=== PATIENT | male | born 1940 | race Caucasian/White ===

== ENCOUNTER → 2017-12-15 11:15 | Outpatient (CLI) | payer MEDICARE, SELFPAY ==
[2017-12-15 12:17] LABS: Absolute Lymphocyte Count 1.68 X10^3/ul (0.83-4.51); Absolute Neutrophil Count 2.8 X10^3/uL (2.0-7.7); Basophil# 0.02 X10^3/uL; Basophil% 0.4 % (0-1); Eosinophil# 0.16 X10^3/uL; Hematocrit 44.2 % (40-54); Hemoglobin 14.6 g/dl (13.0-16.5); Lymphocyte # 1.68 X10^3/ul (4.0); Lymphocyte % 31.4 % (19-41); Mean Corpuscular Hgb 31.9 pg (27.0-32.0); Mean Corpuscular Volume 96.7 fL (80-94); Mean Platelet Vol. 10.2 fl (6.2-12.0); Monocyte# 0.69 X10^3/uL; Monocyte% 12.9 % (0-10); Neutrophil # 2.79 X10^3/uL (2.7-7.7); Neutrophil % 52.1 % (47-70); Platelet Count 156 K/mm3 (150-450); RBC Distribution Width CV 13.3 % (11.6-14.6); RBC Distribution Width SD 46.1 fl (35.1-43.9); Red Blood Count 4.57 M/mm3 (4.6-6.2); White Blood Count 5.4 K/mm3 (4.4-11.0)
[2017-12-15 12:27] LABS: ALB/GLOB Ratio 1.1 RATIO (0.9-2.4); AST(SGOT) 17 U/L (15-37); Alanine Aminotransfer ALT/SGPT 25 U/L (16-61); Albumin, Serum 3.7 g/dL (3.2-5.0); Alkaline Phosphatase 91 U/L (45-117); Anion Gap 6 (5-15); BUN 21 mg/dL (7-18); BUN/Creat Ratio 24.9 RATIO (10-20); Calcium,Total 8.4 mg/dL (8.5-10.1); Chloride 108 mmol/L (98-107); Cholesterol 87 mg/dL (200); Creatinine, Serum 0.84 mg/dL (0.70-1.30); EST Glomerular Filtration Rate 93 mL/min (>60); Est Glom Filt Rate - Afr Amer 113 mL/min (>60); Globulin 3.5 g/dL (2.2-4.2); Glucose 101 mg/dL (74-106); High Density Lipoprotein 29 mg/dL; Protein, Total 7.2 g/dL (6.4-8.2); Sodium Level 139 mmol/L (136-145); Thyroid Stim Hormone (TSH) 2.42 uIU/mL (0.358-3.74); Triglycerides 61 mg/dL; Very Low Density Lipoprotein 12 mg/dL (5-40)
[2017-12-15 12:28] LABS: POSITIVE COUNT NO; POSITIVE DIFFERENTIAL NO; POSITIVE MORPHOLOGY NO
[2017-12-15 12:29] LABS: Vitamin D,25 Hydroxy 16.2 ng/mL (29.95-100.01)
== END ==
PROVIDERS: Visit Provider Family Medicine Geriatric Medicine
DX: E78.4 Other hyperlipidemia (principal); E55.9 Vitamin D deficiency, unspecified; I10 Essential (primary) hypertension
CPT/HCPCS: 36415; 80053; 80061; 82306; 84443; 85025

== ENCOUNTER → 2018-03-11 17:28 | Outpatient (CLI) | payer MEDICARE, SELFPAY | PROVIDERS: Family Provider Family Medicine; PCP Family Medicine; Visit Provider Family Medicine Geriatric Medicine | DX: R50.9 Fever, unspecified (principal) | CPT/HCPCS: 87633 ==

== ENCOUNTER → 2019-03-09 12:27 | Outpatient (CLI) | payer MEDICARE, SELFPAY ==
[2015-11-29 19:35] VITALS: BMI 25.9
[2019-03-09 12:49] LABS: Absolute Lymphocyte Count 1.75 X10^3/uL (0.83-4.51); Absolute Neutrophil Count 3.6 X10^3/uL (2.0-7.7); Basophil# 0.03 X10^3/uL; Basophil% 0.5 % (0-1); Eosinophil# 0.19 X10^3/uL; Hematocrit 44.7 % (40-54); Hemoglobin 14.4 g/dL (13.0-16.5); Lymphocyte # 1.75 X10^3/ul (4.0); Lymphocyte % 27.6 % (19-41); Mean Corp Hgb Conc 32.2 g/dL (32-36); Mean Corpuscular Hgb 30.9 pg (27.0-32.0); Mean Corpuscular Volume 95.9 fL (80-94); Mean Platelet Vol. 9.6 fl (6.2-12.0); Monocyte# 0.74 X10^3/uL; Monocyte% 11.7 % (0-10); NRBC Flagged by Analyzer 0 % (0-5); Neutrophil # 3.62 X10^3/uL (2.7-7.7); Neutrophil % 56.9 % (47-70); Platelet Count 158 K/mm3 (150-450); RBC Distribution Width CV 12.7 % (11.6-14.6); Red Blood Count 4.66 M/mm3 (4.6-6.2); White Blood Count 6.4 K/mm3 (4.4-11.0)
[2019-03-09 13:20] LABS: Anion Gap 7 (5-15); BUN 19 mg/dL (7-18); BUN/Creat Ratio 21.9 RATIO (10-20); Calcium,Total 8.6 mg/dL (8.5-10.1); Chloride 106 mmol/L (98-107); Creatinine, Serum 0.87 mg/dL (0.70-1.30); EST Glomerular Filtration Rate 90 mL/min (>60); Est Glom Filt Rate - Afr Amer 109 mL/min (>60); Glucose 101 mg/dL (74-106); Potassium 4.5 mmol/L (3.5-5.1); Sodium Level 141 mmol/L (136-145)
--- NOTE | 2019-03-09 14:38 | RAD_ITS ---
STUDY: X-RAY CHEST REASON FOR EXAM: Male, 78 years old. Cough TECHNIQUE: Frontal and lateral views of the chest COMPARISON: None. FINDINGS: There are increased interstitial markings noted throughout the lungs which are of uncertain chronicity. Comparison with any prior chest radiographs is recommended. There are no focal infiltrates. There are no pleural effusions. There is no pneumothorax. The heart is normal in size. The visualized osseous structures are within normal limits. RAD/Chest PA and Lateral IMPRESSION: Increased interstitial markings which are of uncertain chronicity. Comparison with any prior chest radiographs is recommended. Otherwise, clear lungs. Electronically Signed: Neal Arias, at 15:21 EDT Tel , Service support ,
== END ==
LOC: POLAB3 12:28 → RAD 14:37
PROVIDERS: Family Provider Family Medicine; PCP Family Medicine; Referring Provider Family Medicine Geriatric Medicine; Visit Provider Family Medicine Geriatric Medicine
DX: E86.0 Dehydration (principal); R06.02 Shortness of breath; R05 Cough
CPT/HCPCS: 36415; 71046; 80048; 85025

== ENCOUNTER → 2019-06-08 | Outpatient (CLI) | payer MEDICARE, SELFPAY ==
[2015-11-29 19:35] VITALS: BMI 25.9
[2019-06-08 15:56] LABS: Absolute Lymphocyte Count 1.86 X10^3/uL (0.83-4.51); Absolute Neutrophil Count 3.3 X10^3/uL (2.0-7.7); Basophil# 0.06 X10^3/uL; Eosinophil# 0.18 X10^3/uL; Eosinophils% 2.9 % (0-5); Hematocrit 43.1 % (40-54); Hemoglobin 14.1 g/dL (13.0-16.5); Lymphocyte # 1.86 X10^3/ul (4.0); Lymphocyte % 30.4 % (19-41); Mean Corp Hgb Conc 32.7 g/dL (32-36); Mean Corpuscular Hgb 32.3 pg (27.0-32.0); Mean Corpuscular Volume 98.6 fL (80-94); Mean Platelet Vol. 10.1 fl (6.2-12.0); Monocyte# 0.68 X10^3/uL; Monocyte% 11.1 % (0-10); NRBC Flagged by Analyzer 0 % (0-5); Neutrophil # 3.31 X10^3/uL (2.7-7.7); Neutrophil % 54.1 % (47-70); Platelet Count 165 K/mm3 (150-450); RBC Distribution Width CV 13.1 % (11.6-14.6); RBC Distribution Width SD 46.9 fl (35.1-43.9); Red Blood Count 4.37 M/mm3 (4.6-6.2); White Blood Count 6.1 K/mm3 (4.4-11.0)
[2019-06-08 16:14] LABS: Vitamin D,25 Hydroxy 23.5 ng/mL (29.95-100.01)
[2019-06-08 16:16] LABS: ALB/GLOB Ratio 1.1 RATIO (0.9-2.4); AST(SGOT) 20 U/L (15-37); Alanine Aminotransfer ALT/SGPT 27 U/L (16-61); Albumin, Serum 3.7 g/dL (3.2-5.0); Alkaline Phosphatase 82 U/L (45-117); Anion Gap 6 (5-15); BUN 22 mg/dL (7-18); BUN/Creat Ratio 24.3 RATIO (10-20); Calcium,Total 8.5 mg/dL (8.5-10.1); Chloride 107 mmol/L (98-107); Cholesterol 123 mg/dL (200); EST Glomerular Filtration Rate 86 mL/min (>60); Est Glom Filt Rate - Afr Amer 104 mL/min (>60); Globulin 3.3 g/dL (2.2-4.2); Glucose 111 mg/dL (74-106); High Density Lipoprotein 39 mg/dL; Potassium 4.3 mmol/L (3.5-5.1); Sodium Level 139 mmol/L (136-145); Thyroid Stim Hormone (TSH) 1.87 uIU/mL (0.358-3.74); Triglycerides 75 mg/dL; Very Low Density Lipoprotein 15 mg/dL (5-40)
== END | disposition home or self-care (01) ==
LOC: POLAB3 13:53
PROVIDERS: Visit Provider Family Medicine Geriatric Medicine
DX: E55.9 Vitamin D deficiency, unspecified (principal); E78.5 Hyperlipidemia, unspecified; I10 Essential (primary) hypertension
CPT/HCPCS: 36415; 80053; 80061; 82306; 84443; 85025

== ENCOUNTER → 2020-06-12 13:08 | Outpatient (CLI) | payer MEDICARE, SELFPAY ==
[2020-06-12 16:31] LABS: Absolute Lymphocyte Count 1.67 X10^3/uL (0.83-4.51); Absolute Neutrophil Count 3.5 X10^3/uL (2.0-7.7); Basophil# 0.04 X10^3/uL; Basophil% 0.7 % (0-1); Eosinophil# 0.15 X10^3/uL; Eosinophils% 2.5 % (0-5); Hematocrit 44.6 % (40-54); Hemoglobin 14.3 g/dL (13.0-16.5); Lymphocyte # 1.67 X10^3/ul (4.0); Mean Corp Hgb Conc 32.1 g/dL (32-36); Mean Corpuscular Hgb 31.3 pg (27.0-32.0); Mean Corpuscular Volume 97.6 fL (80-94); Monocyte# 0.55 X10^3/uL; Monocyte% 9.2 % (0-10); NRBC Flagged by Analyzer 0 % (0-5); Neutrophil # 3.53 X10^3/uL (2.7-7.7); Neutrophil % 59.3 % (47-70); Platelet Count 175 K/mm3 (150-450); RBC Distribution Width CV 13.2 % (11.6-14.6); RBC Distribution Width SD 47.1 fl (35.1-43.9); Red Blood Count 4.57 M/mm3 (4.6-6.2)
[2020-06-12 16:45] LABS: Vitamin D,25 Hydroxy 20.5 ng/mL
[2020-06-12 16:53] LABS: AST(SGOT) 18 U/L (15-37); Alanine Aminotransfer ALT/SGPT 25 U/L (16-61); Albumin, Serum 3.6 g/dL (3.2-5.0); Alkaline Phosphatase 83 U/L (45-117); Anion Gap 8 (5-15); BUN 23 mg/dL (7-18); BUN/Creat Ratio 23.5 RATIO (10-20); Calcium,Total 8.5 mg/dL (8.5-10.1); Chloride 104 mmol/L (98-107); Cholesterol 162 mg/dL (200); Creatinine, Serum 0.98 mg/dL (0.70-1.30); EST Glomerular Filtration Rate 78 mL/min (>60); Est Glom Filt Rate - Afr Amer 94 mL/min (>60); Globulin 3.5 g/dL (2.2-4.2); Glucose 135 mg/dL (74-106); High Density Lipoprotein 40 mg/dL; Potassium 4.4 mmol/L (3.5-5.1); Protein, Total 7.1 g/dL (6.4-8.2); Sodium Level 138 mmol/L (136-145); Thyroid Stim Hormone (TSH) 1.85 uIU/mL (0.358-3.74); Triglycerides 217 mg/dL; Very Low Density Lipoprotein 43 mg/dL (5-40)
== END ==
PROVIDERS: Visit Provider Family Medicine Geriatric Medicine
DX: E55.9 Vitamin D deficiency, unspecified (principal); E78.5 Hyperlipidemia, unspecified; I10 Essential (primary) hypertension
CPT/HCPCS: 36415; 80053; 80061; 82306; 84443; 85025

== ENCOUNTER 2020-10-26 08:52 | Outpatient (RCR) | payer MEDICARE, SELFPAY ==
[2015-11-29 19:35] VITALS: BMI 25.9
[2020-10-26] MEDS: COVID-19 VACC, MRNA(PFIZER)/PF 30 MCG/0.3 ML SYRINGE IM (13:43)
[2020-11-16] MEDS: COVID-19 VACC, MRNA(PFIZER)/PF 30 MCG/0.3 ML SYRINGE IM (13:12)
== END 2021-01-30 23:59 ==
LOC: IMMUN 08:52
PROVIDERS: Visit Provider Family Medicine
DX: Z23 Encounter for immunization (principal)
CPT/HCPCS: 0001A; 0002A; 91300

== ENCOUNTER → 2021-01-15 12:54 | Outpatient (CLI) | payer MEDICARE, SELFPAY ==
[2015-11-29 19:35] VITALS: BMI 25.9
--- NOTE | 2021-01-15 16:59 | SP.MBSS_ITS ---
Modified Barium Swallow - Patient Information Study Date: 01/15/21 Study Time: 13:00 Direct Billable Minutes: 135 Total Minutes procedure & reportin Diagnosis: Dysphagia Referring Physician: Laurent York Chi Reason for Referral: Referral received for objective assessment of swallow function secondary to patient reporting food will lay in my throat & I'll cough it back up, hard to get food to go down, feels like swallowing a big lump Medical History: obtained per review of electronic medical record and medication list - HLD, HTN, Depression, Tobacco Abuse Dentition: Upper Dentures, Lower Dentures Mental Status: WNL Respiratory Status: Oxygenating on Room Air - Penetration-Aspiration Scale Penetration-Aspiration Scale: OBJECTIVE ASSESSMENT OF SWALLOW FUNCTION (QUANTITATIVE ? PER TRIAL): PENETRATION / ASPIRATION SCALE (BOWER): 1 = does not enter airway 2 = enters airway/above vocal folds/ejected 3 = enters airway/above vocal folds/not ejected 4 = enters airway/contacts vocal folds/ejected 5 = enters airway/contacts vocal folds/not ejected 6 = enters airway/below vocal folds/ejected 7 = enters airway/below vocal folds/not ejected despite effort 8 = enters airway/below vocal folds/no effort VIDEOFLOROSCOPIC SCALE SCORE (BOWER): Grade I = aspiration of material that has penetrated into the laryngeal vestibule, intact cough reflex Grade II = aspiration < 10 % of the bolus, intact cough reflex Grade III = aspiration of < 10 % of the bolus, reduced cough reflex or aspiration of > 10 % of the bolus, intact cough reflex Grade IV = aspiration of > 10 % of the bolus, reduced cough reflex - Penetration-Aspiration Scale Score Thin Liquid via teaspoon Result: 3= enters airways/above vocal folds/not ejected - transiently dropped below folds, contrast remained atop folds post deglutition, partially ejected w/ cued cough and re-swallow Thin Liquid via teaspoon Trial 2 Result: 6= enters airway/below vocal folds/ejected - transiently dropped below folds, contrast remained atop folds post deglutition, partially ejected w/ cued cough and re-swallow Thin Liquid via small single sip from cup Result: 5= enters airways/contacts vocal folds/not ejected Thin Liquid via small single sip from cup Chin tuck Result: 8= enters airway/below vocal folds/no effort Comment: chin tuck worsened airway protection and increased aspiration before/during the swallow; aspiration was silent Thin Liquid via small single sip from cup Supraglottic swallow Result: 3= enters airways/above vocal folds/not ejected Hartsel Thick Liquid via small single sip from cup Result: 3= enters airways/above vocal folds/not ejected Pudding Result: 2= enter airway/above vocal folds/ejected Thin Liquid via small single sip from cup Trial 2 Result: 2= enter airway/above vocal folds/ejected Thin Liquid via sequential sips from cup Result: 5= enters airways/contacts vocal folds/not ejected - Oral Phase Labial Seal: No Labial Escape Tongue Control During Bolus Hold: Posterior escape of less than half of bolus Bolus Preparation/Mastication: Slow prolonged chewing/mashing with complete recollection Bolus Transport/Lingual Motion: Repetitive/disorganized tongue motion Oral Residue: Residue collection on oral structures - Pharyngeal Phase Initiation of Pharyngeal Swallow: Bolus head in valleculae Soft Palate Elevation: Trace column of contrast/air between soft palate and pharyngeal wall Laryngeal Elevation: Partial superior movement thyroid cart/partial apprx aryt- epig petiole Epiglottic Movement: Partial inversion Laryngeal Vestibule Closure at Height of Swallow: Incomplete; narrow column of air/contrast in laryngeal vestibule Pharyngeal Stripping Wave: Absent Pharyngoesophageal Segment Opening: Parital distension and partial duration; parital obstruction of flow Tongue Base Retraction: Narrow column of contrast between tongue base & post. pharyngeal wall Pharyngeal Residue: Collection of residue within or on pharyngeal structures - Esophageal Phase Esophageal Clearance: Esophageal retention w/ retrograde flow below pharyn goesophageal seg. - Treatment Strategies Effects of treatment strategies attemped:: Supraglottic Swallow = effective Super-Supraglottic Swallow = effective Chin Tuck = not effective Double Swallow = effective - Diagnosis/Impression Diagnosis: Moderate Oropharyngeal Dysphagia (R13.12) Impression: Swallow function is characterized by: * Disorganized oral containment with spillage to the floor of the mouth/lateral sulci and premature pharyngeal bolus entry prior to swallow onset * Spillage w/ trial of thin liquid via teaspoon x1 entered into the laryngeal vestibule, contacting the vocal folds before swallow onset; penetration transiently dropped below the vocal folds during deglutition w/ return atop the vocal folds upon swallow completion; no cough response appreciated in response to transient aspiration * Adequate base of tongue retractions, essentially absent pharyngeal stripping wave w/ diminished pharyngeal contraction * Trace contrast between the velum and posterior pharyngeal wall without penetration into the nasopharynx; contrast adhered to velum post deglutition * Thyroid cartilage elevation of ~1 cervical vertebrae * Limited superior and anterior hyoid excursion resulting in incomplete epiglottic inversion, incomplete arytenoid to epiglottic petiole and reduced distension and duration of PES opening, complicated by small cervical osteophytes noted at C5-6 level * Due to reduced PES distention, incomplete arytenoid to epiglottic petiole contact and incomplete epiglottic inversion, contrast penetrated into the laryngeal vestibule contacting the vocal folds during the swallow w/ liquid and pudding trials * Diffuse pharyngeal residue retention noted on all pharyngeal structures ? velum, base of tongue, posterior pharyngeal wall, valleculae, aryepiglottic folds, pyriform sinuses * Copious pyriform sinus residue retention contributed to additional laryngeal vestibule penetration when utilizing additional swallows to clear residue * Supraglottic swallow maneuver was effective compensate for impaired swallow onset timing and provide sufficient vocal fold closure and airway protection; successfully eliminating penetration w/ pudding consistency * Cough and re-swallow effective to partially expel penetration from the laryngeal vestibule * Esophageal retention below the PES evident during esophageal screen for clearance; trace contrast lining the esophagus below the PES w/ visible retrograde flow below the PES * This patient demonstrated consistent moist throat clearing following MBS completion * Although penetration occurred consistently throughout this study, it was not markedly changed as textures/consistencies were modified w/ limited aspiration * Given this patient?s active lifestyle, it is suspected that he has been compensating for/tolerating chronic penetration/microaspiration without pulmonary compromise - Recommendations Diet: Regular Textures - Minced & Moist Texture, avoiding dry/hard/crunchy food items, Thin Liquids Comment: Recommended Compensatory Strategies * seated upright w/ hip flexion at 90 degrees for all PO intake * remain upright for 30-60 minutes after meals (GERD precautions) * Super-Supraglottic Swallow Maneuver - INSTRUCTIONS: take a breath and hold it tightly while bearing down, continue to hold your breath and bear down as you swallow, immediately after your swallow (before you inhale) cough then immediately swallow hard again (before you inhale) * Clear throat/re-swallow as needed (i.e. if wet vocal quality or pharyngeal residue retention) Recommend Repeat Modified Barium Swallow: Yes - repeat MBS recommended following outpatient dysphagia intervention at gauge progress and need for compensatory strategy modification/discontinuation - timing of repeat MBS TBD the the discretions of the treating outpatient BUSINESS PROGRAMMER Comment: Outpatient Barium Esophagram is scheduled for 01/16/21. Need for Skilled Speech Therapy Services: Yes Comment: Outpatient dysphagia intervention is recommended to address: * continued instruction w/ diet texture management * training and implementation of recommended compensatory strategies (Super- Supraglottic Swallow) * training and implementation of recommended oropharyngeal strengthening exercises to facilitate improved lingual control, swallow onset timing, laryngeal vestibule closure, epiglottic inversion, pharyngeal motility, and PES distention/duration * additional education regarding MBS findings * determine appropriate interval for repeated instrumental assessment of oropharyngeal swallow function Education Completed: 1. Described result of evaluation., 2. Pt understands evaluation & agrees with goals and treatment plan. Comment: Education was provided regarding results/recommendations immediately follow MBS completion. Images were reviewed with the patient to improve comprehension of normal swallow function and of deficits identified which require implementation of compensatory strategy use and outpatient dysphagia intervention. Education well received with the patient successfully teaching back to this BUSINESS PROGRAMMER the recommended compensatory strategies for improved swallow function/reduced aspiration risk. - Status Active ST Patient: Active - Contact Information [facility] Speech Therapy:: Rosibel Stanton M.A., [facility]-BUSINESS PROGRAMMER [facility] [address] [place], [place] [id number] [email or web address]
== END ==
PROVIDERS: PCP Family Medicine Geriatric Medicine; Referring Provider Family Medicine Geriatric Medicine; Visit Provider Family Medicine Geriatric Medicine
DX: R13.10 Dysphagia, unspecified (principal)
CPT/HCPCS: 74230; 92611

== ENCOUNTER → 2021-01-16 08:19 | Outpatient (CLI) | payer MEDICARE, SELFPAY ==
[2015-11-29 19:35] VITALS: BMI 25.9
--- NOTE | 2021-01-16 08:21 | RAD_ITS ---
STUDY: X-RAY - ESOPHAGUS (BARIUM SWALLOW) WITH FLUOROSCOPY REASON FOR EXAM: Male, 80 years old. DYSPHAGIA TECHNIQUE: 27 view(s) of the esophagus were obtained following swallowing of barium. FLUOROSCOPY TIME (if supplied): (54 seconds) minutes/seconds COMPARISON: None. FINDINGS: There is no demonstrated esophageal foreign body. There is no demonstrated stricture or mucosal abnormality. There is a moderate-sized paraesophageal hiatal hernia. There is evidence of gastroesophageal reflux. The patient ingested a 12 mm tablet of barium without any difficulty. There is atherosclerotic tortuosity of the aortic arch and descending thoracic aorta. Normal visualized pulmonary parenchyma. There are diffuse degenerative changes of the visualized thoracic spine. RAD/Esophagus Dual Contrast IMPRESSION: Moderate size paraesophageal hiatal hernia. Gastroesophageal reflux. Electronically Signed: Manoj Matt MD at 11:12 EDT , Service support ,
== END ==
PROVIDERS: PCP Family Medicine Geriatric Medicine; Referring Provider Family Medicine Geriatric Medicine; Visit Provider Family Medicine Geriatric Medicine
DX: R13.10 Dysphagia, unspecified (principal)
CPT/HCPCS: 74221

== ENCOUNTER → 2021-06-13 13:25 | Outpatient (CLI) | payer MEDICARE, SELFPAY ==
[2021-06-13 17:07] LABS: Absolute Lymphocyte Count 1.52 X10^3/uL (0.83-4.51); Absolute Neutrophil Count 3.2 X10^3/uL (2.0-7.7); Basophil# 0.06 X10^3/uL; Basophil% 1.1 % (0-1); Eosinophil# 0.14 X10^3/uL; Eosinophils% 2.6 % (0-5); Hematocrit 41.6 % (40-54); Hemoglobin 13.5 g/dL (13.0-16.5); Lymphocyte # 1.52 X10^3/ul (0.83-4.51); Lymphocyte % 28.6 % (19-41); Mean Corp Hgb Conc 32.5 g/dL (32-36); Mean Corpuscular Hgb 31.1 pg (27.0-32.0); Mean Corpuscular Volume 95.9 fL (80-94); Mean Platelet Vol. 10.2 fl (6.2-12.0); Monocyte# 0.44 X10^3/uL; Monocyte% 8.3 % (0-10); NRBC Flagged by Analyzer 0 % (0-5); Neutrophil # 3.15 X10^3/uL (2.7-7.7); Neutrophil % 59.2 % (47-70); Platelet Count 169 K/mm3 (150-450); RBC Distribution Width CV 12.7 % (11.6-14.6); RBC Distribution Width SD 45.5 fl (35.1-43.9); Red Blood Count 4.34 M/mm3 (4.6-6.2); White Blood Count 5.3 K/mm3 (4.4-11.0)
[2021-06-13 17:28] LABS: Vitamin D,25 Hydroxy 24.2 ng/mL
[2021-06-13 17:32] LABS: AST(SGOT) 19 U/L (15-37); Alanine Aminotransfer ALT/SGPT 25 U/L (16-61); Albumin, Serum 3.5 g/dL (3.2-5.0); Alkaline Phosphatase 80 U/L (45-117); Anion Gap 8 (5-15); BUN 22 mg/dL (7-18); BUN/Creat Ratio 23.9 RATIO (10-20); Calcium,Total 8.7 mg/dL (8.5-10.1); Chloride 107 mmol/L (98-107); Creatinine, Serum 0.92 mg/dL (0.70-1.30); EST Glomerular Filtration Rate 84 mL/min (>60); Est Glom Filt Rate - Afr Amer 101 mL/min (>60); Globulin 3.4 g/dL (2.2-4.2); Glucose 122 mg/dL (74-106); Potassium 3.8 mmol/L (3.5-5.1); Protein, Total 6.9 g/dL (6.4-8.2); Sodium Level 140 mmol/L (136-145); Thyroid Stim Hormone (TSH) 2.19 uIU/mL (0.358-3.74)
== END ==
PROVIDERS: PCP Family Medicine Geriatric Medicine; Visit Provider Family Medicine Geriatric Medicine
DX: E55.9 Vitamin D deficiency, unspecified (principal); I10 Essential (primary) hypertension
CPT/HCPCS: 36415; 80053; 82306; 84443; 85025

== ENCOUNTER 2021-07-18 09:31 | Emergency (ER) | payer MEDICARE, SELFPAY ==
[2021-07-18 09:32] VITALS: BP 170/78; PULSE 50; RESP 16; TEMP 35.8; O2SAT 99; BMI 23.1
--- NOTE | 2021-07-18 09:44 | EKG12_ITS ---
Test Reason : DIZZINESS Blood Pressure : / mmHG Vent. Rate : 051 BPM Atrial Rate : 051 BPM P-R Int : 188 ms QRS Dur : 146 ms QT Int : 468 ms P-R-T Axes : 043 094 023 degrees QTc Int : 431 ms Sinus bradycardia Right bundle branch block Abnormal ECG Confirmed by MARINO MACKENZIE, CHERELLE ([id number]), editorial manager NAMITA CONDON ([id number]) on 07/25/2021 9:29:22 AM Referred By: BRANDYN Confirmed By:CHERELLE PICHARDO MD
--- NOTE | 2021-07-18 09:44 | CT_ITS ---
INDICATION: vertigo EXAMINATION: CT BRAIN - CT Head or Brain W/O Contrast Injection TECHNIQUE: Multiple axial images were obtained of the head without intravenous contrast. A radiation dose optimization technique was used for this scan. IV Contrast dosage and agent: None. COMPARISON: None FINDINGS: BRAIN PARENCHYMA: No intra- or extra-axial hemorrhage. No evidence of acute infarct. Small remote left lacunar infarct. No masses. Age-appropriate mild cortical volume loss. CSF SPACES: Appropriate for age. No hydrocephalus. Basal cisterns are patent. BONES: No acute findings. No destructive osseous lesions. SINUSES/MASTOID AIR CELLS: Patent. ORBITS: Unremarkable. CT/Brain/Head without Contrast IMPRESSION: No acute intracranial findings. Electronically Signed: Bubba Fisher MD at 10:46 EST Tel , Service support ,
--- NOTE | 2021-07-18 09:46 | EX.ED.DYSGE1 ---
HPI History of Present Illness Chief Complaint: Dizziness Detail of Chief Complaint: Dizziness Informant: patient Narrative Narrative: Patient presents to the emergency department complaining of dizziness. Patient states that he woke up this morning around 530 and ate breakfast and went to lay back down. When he got up from bed again patient described vertiginous symptoms and dry heaves. Symptoms worse with standing and head position. Patient states he had a similar episode about a week ago. He denies any falls or head injuries. He denies headache. He denies recent illness. Patient states he has had similar symptoms in the past when he has had wax in his ears. Patient has had both Covid vaccines as well as a booster. [facility] Medical History (Updated 07/18/21 @ 10:[address] Karlie Vigil DO) Tremor Home Medications atorvastatin 20 mg PO DAILY@2200 #30 tablet 09/02/14 [Rx Last Taken 06/01/15 07:00] lisinopril 10 mg PO DAILY #30 tablet 09/02/14 [Rx Last Taken 06/01/15 07:00] sertraline [Zoloft] 25 mg PO DAILY 10/02/14 [History Last Taken 06/01/15 07:00] propranolol 10 mg PO BID #60 tablet 02/07/15 [Rx Last Taken 06/01/15 07:00] hydrocodone-acetaminophen 1 tab PO Q4H PRN PRN #8 tablet 11/29/15 [Rx Last Taken Unknown] meclizine 25 mg PO TID PRN #20 tab 07/18/21 [Rx Last Taken Unknown] ondansetron 4 mg PO Q8H PRN PRN #10 tab 07/18/21 [Rx Last Taken Unknown] Allergy/AdvReac Type Severity Reaction Status Date / Time No Known Allergies Allergy Verified 07/18/21 09:31 Surgical History no surgical history Social History Smoking Status: Former smoker ROS ROS ED ROS Narrative Dizziness Constitutional Constitutional ED: Reports systems reviewed and no addt'l complaints, except as documented; Denies body ache(s), change in weight or chills Eyes Eyes: Denies acute decrease in peripheral vision, change in vision, double vision or loss of vision ENT ENT ED: Reports none; Denies ear pain, lip swelling, loss taste/smell, neck pain, otalgia or sore throat Cardiovascular Cardiovascular: Reports none; Denies abdominal pain, chest pain with activity, leg edema, lightheadedness, palpitations, rapid heart rate or syncope Respiratory/Chest Respiratory/Chest: Reports none; Denies change in mental status, dry cough, dyspnea, hemoptysis, shortness of breath at rest or shortness of breath with exertion Gastrointestinal Gastrointestinal: Reports none and nausea; Denies abdominal pain, change in stool character, diarrhea, hematemesis, hematochezia, melena, rectal bleeding or vomiting Genitourinary Genitourinary ED: Reports none; Denies abdominal discomfort, anuria, dysuria, genital pain or polyuria Musculoskeletal Musculoskeletal: Reports none; Denies arthralgias, back pain, difficulty walking, extremity pain, muscle weakness or myalgias Integumentary Reports none; Denies abscess or rash Neurologic Neurologic: Reports none; Denies abnormal gait, confusion, focal weakness, frequent falls, headache(s), loss of vision, numbness, paresthesias, radicular pain, vertigo or weakness Psychiatric Psychiatric: Reports systems reviewed and no addt'l complaints, except as documented and none; Denies behavioral changes, confusion, difficulty concentrating, hallucinations, suicidal ideation, tactile hallucinations or visual hallucinations Endocrine Endocrinology: Denies none, cold intolerance, excessive sweating, fatigue or heat intolerance Hematologic/Lymphatic Hematologic/Lymphatic: Reports none; Denies anemia, easy bleeding or easy bruising Allergic/Immunologic Allergic/Immunologic ED: Denies as per HPI, none, lip swelling, mouth swelling, throat swelling, tongue swelling or hives EXAM Physical Exam Const Vital Signs: 07/18/21 09:32 Temperature 96.4 F L Temperature Source Temporal Pulse Rate 50 L Respiratory Rate 16 Blood Pressure 170/78 H Blood Pressure Mean 108 Pulse Ox 99 Oxygen Delivery Method Room Air Positive well nourished and well developed General Appearance ED: well developed and NAD HEENT Reports TM's clear and moist mucous membranes normocephalic and atraumatic; Negative for trauma or tenderness Tympanic Membrane ED: Yes TM's clear Eyes PERRL and EOMs intact bilaterally General Eye ED: Negative for pale conjunctiva or scleral icterus Neck no lymphadenopathy, supple and no JVD General: Negative for tenderness Chest Wall inspection of chest normal and palpation of chest normal Chest: Negative for tenderness Resp normal respiratory effort and clear to auscultation bilaterally Effort and Inspection: Negative for respiratory distress or pain with movement Auscultation: Negative for rhonchi, wheezes or diminished lung sounds Cardio regular rate, regular rhythm, S1 normal heart sound, S2 normal heart sound and no murmurs Peripheral Pulses: pulses 2+ throughout GI normal to inspection, nondistended, normoactive bowel sounds, soft to palpation, non-tender, non-distended and no masses Back/Spine no CVA tenderness and no thoracic nor lumbar tenderness Extremity normal to inspection General Extremety ED: Negative for edema General Extremity: Negative for edema Neuro oriented x3, CN's II-XII intact bilaterally, no sensory deficits noted and gait normal Neuro Narrative: [id number] and heel lee testing within normal limits. Hallpike maneuver performed did elicit small amount of nystagmus with head position to the left. Patient also complained of increased dizziness with sitting up. Sensorium / Orientation: awake, alert, oriented to person, oriented to place and oriented to time Motor Exam: strength 5/5 throughout and strength abnormal Psych mental status grossly normal Skin no rashes or lesions noted and no wounds MDM MDM MDM Narrative Medical decision making narrative: IV line on arrival. Patient placed on a montessori paraprofessional. EKG obtained showed a sinus bradycardia with rate of 51 bpm with a right bundle branch block. Patient tells me that he started propranolol couple of months ago for tremor. I was able to get an old EKG from 2014 and at that time his heart rate was 60. I do not feel his heart rate is responsible for his dizziness however. Patient did receive Antivert and Zofran in the department and did feel improved with treatment. Patient will be given a prescription for Antivert and Zofran and referral to ENT as he does describe some hearing loss and ringing in ears coupled with the vertigo suspect possibility of M?ni?re's disease. Lab Data Attestation: I reviewed the patient's lab results. Labs: Laboratory Results - last 24 hr 07/18/21 07/18/21 09:56 09:56 WBC 7.1 RBC 4.51 L Hgb 14.1 Hct 41.9 MCV 92.9 MCH 31.3 MCHC 33.7 RDW Std Deviation 43.8 RDW Coeff of Roe 12.8 Plt Count 155 MPV 9.5 Immature Gran % (Auto) 0.600 Neut % (Auto) 74.3 H Lymph % (Auto) 16.3 L Randall % (Auto) 6.7 Eos % (Auto) 1.4 Baso % (Auto) 0.7 Absolute Neuts (auto) 5.3 Absolute Lymphs (auto) 1.16 Nucleated RBC % 0 Sodium 140 Potassium 3.9 Chloride 105 Carbon Dioxide 24.0 Anion Gap 11 BUN 22 H Creatinine 0.79 Estim Creat Clear Calc 69.35 Est GFR (MDRD) Af Amer 121 Est GFR (MDRD) Non-Af 100 BUN/Creatinine Ratio 27.9 H Glucose 126 H Calcium 8.8 Troponin I High Sens 7 Radiography Diagnostic Testing: Clinical Impression(s) from Imaging Studies Brain CT 07/18/21 09:44 IMPRESSION: No acute intracranial findings. Electronically Signed: Bubba Fisher MD at 10:46 EST Tel , Service support , EKG Initial EKG: Attestation: I personally reviewed and interpreted this EKG as follows: Comments: Sinus bradycardia with a ventricular rate of 51 bpm with a right bundle branch block Prior EKG tracings: available for review Prior: Changed Discharge Plan Triage Chief Complaint: Dizziness ED Provider: Karlie Vigil Dx/Rx/DC Orders Clinical Impression: Benign paroxysmal positional vertigo, Meniere disease Instructions: ED Meniere's Disease, ED Vertigo, Unspecified Prescriptions: New ondansetron [ondansetron] 4 MG tablet 4 mg PO Q8H PRN PRN (Reason: Nausea) Qty: 10 RF: 0 meclizine 25 mg tablet 25 mg PO TID PRN (Reason: dizziness) Qty: 20 RF: 0 No Action atorvastatin 20 MG tablet 20 mg PO DAILY@2200 Qty: 30 RF: 0 lisinopril 10 MG tablet 10 mg PO DAILY Qty: 30 RF: 0 sertraline [Zoloft] 25 MG tablet 25 mg PO DAILY RF: 0 propranolol 10 MG tablet 10 mg PO BID Qty: 60 RF: 6 hydrocodone-acetaminophen 1 TABLET tablet 1 tab PO Q4H PRN PRN (Reason: Pain) Qty: 8 RF: 0 Primary Care Provider: Laurent York Chi Referrals: Armand Strauss MD [STAFF PHYSICIAN] - 3-5 Days Laurent York Chi, MD [Primary Care Provider] - 3-5 Days
[2021-07-18 10:08] LABS: Absolute Lymphocyte Count 1.16 X10^3/uL (0.83-4.51); Absolute Neutrophil Count 5.3 X10^3/uL (2.0-7.7); Basophil# 0.05 X10^3/uL; Basophil% 0.7 % (0-1); Eosinophils% 1.4 % (0-5); Hematocrit 41.9 % (40-54); Hemoglobin 14.1 g/dL (13.0-16.5); Lymphocyte # 1.16 X10^3/ul (0.83-4.51); Lymphocyte % 16.3 % (19-41); Mean Corp Hgb Conc 33.7 g/dL (32-36); Mean Corpuscular Hgb 31.3 pg (27.0-32.0); Mean Corpuscular Volume 92.9 fL (80-94); Mean Platelet Vol. 9.5 fl (6.2-12.0); Monocyte# 0.48 X10^3/uL; Monocyte% 6.7 % (0-10); NRBC Flagged by Analyzer 0 % (0-5); Neutrophil # 5.29 X10^3/uL (2.7-7.7); Neutrophil % 74.3 % (47-70); Platelet Count 155 K/mm3 (150-450); RBC Distribution Width CV 12.8 % (11.6-14.6); RBC Distribution Width SD 43.8 fl (35.1-43.9); Red Blood Count 4.51 M/mm3 (4.6-6.2); White Blood Count 7.1 K/mm3 (4.4-11.0)
[2021-07-18 10:26] LABS: Anion Gap 11 (5-15); BUN 22 mg/dL (7-18); BUN/Creat Ratio 27.9 RATIO (10-20); Calcium,Total 8.8 mg/dL (8.5-10.1); Chloride 105 mmol/L (98-107); Creatinine, Serum 0.79 mg/dL (0.70-1.30); EST Glomerular Filtration Rate 100 mL/min (>60); Est Glom Filt Rate - Afr Amer 121 mL/min (>60); Estimated Creatinine Clearance 69.35 ml/min; Glucose 126 mg/dL (74-106); Potassium 3.9 mmol/L (3.5-5.1); Sodium Level 140 mmol/L (136-145); Troponin-I HS 7 pg/mL (3.0-78.0)
[2021-07-18] MEDS: Meclizine HCl 25 MG Tablet PO (10:37)
[2021-07-18] MEDS: Ondansetron 4 MG/2 ML Vial IV (10:37)
[2021-07-18] MEDS: 0.9% Normal Saline 1,000 ML 150 ML IV (10:38)
[2021-07-18 10:52] VITALS: BP 166/82; BP 184/96; BP 185/91; PULSE 49; PULSE 52; PULSE 53
[2021-07-18 11:14] VITALS: BP 166/82; PULSE 50; RESP 12; O2SAT 96
== END 2021-07-18 11:17 | disposition home or self-care (01) ==
LOC: ED 10:29
PROVIDERS: Emergency Provider Emergency Medicine; PCP Family Medicine Geriatric Medicine
DX: H81.10 Benign paroxysmal vertigo, unspecified ear (principal); H81.09 Meniere's disease, unspecified ear; Z87.891 Personal history of nicotine dependence
CPT/HCPCS: 70450; 80048; 84484; 85025; 93005; 96374; 99285; J7030; A4216; J2405

== ENCOUNTER 2021-09-10 08:11 | Outpatient (CLI) | payer MEDICARE, SELFPAY ==
--- NOTE | 2021-09-10 08:25 | MRI_ITS ---
STUDY: MRI BRAIN WITH AND WITHOUT CONTRAST REASON FOR EXAM: Male, 81 years old. 4TH NERVE PALSY, DIPLOPLIA, VERTIGO TECHNIQUE: Standardized multiplanar fat and water weighted pulse sequences were obtained. IV 18 cc dotarem was administered for the contrast portion of the examination. COMPARISON: 07/18/2021 CT of the head FINDINGS: Normal size of the ventricles and extra-axial spaces for the patient''s age. There are multiple white matter hyperintensities, distributed throughout the deep white matter tracts of the cerebral hemispheres, consistent with mild chronic white matter ischemic changes. Normal flow voids within the major intracranial circulation suggesting patency by spin echo criteria. Normal venous enhancement. There is no enhancing intra-axial or extra-axial abnormality. Normal sella turcica, pituitary gland, infundibular stalk, optic chiasm and hypothalamus. Normal tectal plate and pineal gland. There are chronic white matter ischemic changes of the tiffanie. The midbrain and medulla are otherwise normal. There is no evidence of abnormal enhancement. The cavernous sinuses are unremarkable. Normal cerebellum. Normal basal cisterns. MRI/Brain W/WO Contrast IMPRESSION: No acute intracranial abnormality or masses. Mild chronic microvascular ischemic changes. Electronically Signed: Catalina Silva MD at 8:37 EST Tel , Service support ,
[2021-09-10 09:11] LABS: CREATININE FINGERSTICK 0.9 mg/dL (0.70-1.30); EGFR FINGERSTICK > 60.0000 mL/min (>60)
== END 2021-09-10 23:59 | disposition short-term general hospital (02) ==
PROVIDERS: PCP Family Medicine Geriatric Medicine; Referring Provider Ophthalmology; Visit Provider Ophthalmology
DX: H49.12 Fourth [trochlear] nerve palsy, left eye (principal)
CPT/HCPCS: 70553; A9575

== ENCOUNTER 2021-11-16 12:18 | Outpatient (CLI) | payer MEDICARE, SELFPAY ==
--- NOTE | 2021-11-16 12:46 | RAD_ITS ---
STUDY: X-RAY CHEST REASON FOR EXAM: Male, 81 years old. SOB TECHNIQUE: PA and lateral views of the chest. COMPARISON: March 09, 2019 chest x-ray FINDINGS: There is a pattern of interstitial thickening and groundglass opacity in the lungs. Since prior study there is worsening of peripheral opacity in the lungs. Within the left greater than right lower lobes there is focal groundglass opacity which is increased since the prior study. There is also a rounded appearing density seen on the lateral view that is suspicious for a persistent large hiatal hernia. Normal size heart. Normal mediastinum and shena. Normal visualized pulmonary arteries. Normal visualized aortic arch and descending thoracic aorta. Normal visualized thoracic spine. Normal visualized ribs, clavicles, and shoulders. There is no demonstrated abnormality of the visualized soft tissue structures of the upper abdomen. RAD/Chest PA and Lateral IMPRESSION: Hiatal hernia. Measuring at least 11 x 9 cm. Findings are highly suspicious for underlying chronic interstitial lung disease with superimposed pneumonia left greater than right potentially worsening interstitial lung disease could have this appearance. Given the presence of a large hiatal hernia could consider aspiration pneumonia. Electronically Signed: Candy Amezcua MD at 0:31 EDT ,
[2021-11-16 12:52] LABS: Absolute Lymphocyte Count 1.19 X10^3/uL (0.83-4.51); Absolute Neutrophil Count 4.7 X10^3/uL (2.0-7.7); Basophil# 0.04 X10^3/uL; Basophil% 0.6 % (0-1); Eosinophil# 0.35 X10^3/uL; Eosinophils% 4.9 % (0-5); Hematocrit 39.4 % (40-54); Hemoglobin 13.4 g/dL (13.0-16.5); Lymphocyte # 1.19 X10^3/ul (0.83-4.51); Lymphocyte % 16.7 % (19-41); Mean Corpuscular Hgb 31.8 pg (27.0-32.0); Mean Corpuscular Volume 93.4 fL (80-94); Mean Platelet Vol. 8.8 fl (6.2-12.0); Monocyte% 11.2 % (0-10); NRBC Flagged by Analyzer 0 % (0-5); Neutrophil # 4.72 X10^3/uL (2.7-7.7); Neutrophil % 66.2 % (47-70); Platelet Count 240 K/mm3 (150-450); RBC Distribution Width CV 12.9 % (11.6-14.6); RBC Distribution Width SD 44.5 fl (35.1-43.9); Red Blood Count 4.22 M/mm3 (4.6-6.2); White Blood Count 7.1 K/mm3 (4.4-11.0)
[2021-11-16 13:06] LABS: Anion Gap 4 (5-15); BUN 26 mg/dL (7-18); Calcium,Total 8.6 mg/dL (8.5-10.1); Chloride 110 mmol/L (98-107); EST Glomerular Filtration Rate 76 mL/min (>60); Est Glom Filt Rate - Afr Amer 92 mL/min (>60); Glucose 110 mg/dL (74-106); Potassium 4.5 mmol/L (3.5-5.1); Sodium Level 139 mmol/L (136-145)
== END 2021-11-16 23:59 | disposition home or self-care (01) ==
PROVIDERS: PCP Family Medicine Geriatric Medicine; Referring Provider Family Medicine Geriatric Medicine; Visit Provider Family Medicine Geriatric Medicine
DX: R06.89 Other abnormalities of breathing (principal); R06.02 Shortness of breath
CPT/HCPCS: 36415; 71046; 80048; 85025

== ENCOUNTER 2021-12-12 12:59 | Outpatient (CLI) | payer MEDICARE, SELFPAY ==
[2021-12-12 16:41] LABS: Absolute Lymphocyte Count 1.92 X10^3/uL (0.83-4.51); Absolute Neutrophil Count 4.3 X10^3/uL (2.0-7.7); Basophil# 0.06 X10^3/uL; Basophil% 0.8 % (0-1); Eosinophil# 0.35 X10^3/uL; Eosinophils% 4.7 % (0-5); Hematocrit 44.1 % (40-54); Hemoglobin 14.5 g/dL (13.0-16.5); Lymphocyte # 1.92 X10^3/ul (0.83-4.51); Lymphocyte % 25.8 % (19-41); Mean Corp Hgb Conc 32.9 g/dL (32-36); Mean Corpuscular Hgb 30.6 pg (27.0-32.0); Monocyte# 0.77 X10^3/uL; Monocyte% 10.3 % (0-10); NRBC Flagged by Analyzer 0 % (0-5); Neutrophil # 4.31 X10^3/uL (2.7-7.7); Platelet Count 167 K/mm3 (150-450); RBC Distribution Width CV 13.8 % (11.6-14.6); RBC Distribution Width SD 46.6 fl (35.1-43.9); Red Blood Count 4.74 M/mm3 (4.6-6.2); White Blood Count 7.4 K/mm3 (4.4-11.0)
[2021-12-12 16:46] LABS: Vitamin D,25 Hydroxy 19.4 ng/mL
[2021-12-12 16:59] LABS: AST(SGOT) 14 U/L (15-37); Alanine Aminotransfer ALT/SGPT 26 U/L (16-61); Albumin, Serum 3.6 g/dL (3.2-5.0); Alkaline Phosphatase 80 U/L (45-117); Anion Gap 9 (5-15); BUN 29 mg/dL (7-18); BUN/Creat Ratio 25.7 RATIO (10-20); Calcium,Total 8.3 mg/dL (8.5-10.1); Chloride 105 mmol/L (98-107); Cholesterol 172 mg/dL (200); Creatinine, Serum 1.13 mg/dL (0.70-1.30); EST Glomerular Filtration Rate 66 mL/min (>60); Est Glom Filt Rate - Afr Amer 80 mL/min (>60); Globulin 3.5 g/dL (2.2-4.2); Glucose 112 mg/dL (74-106); High Density Lipoprotein 42 mg/dL; Potassium 4.5 mmol/L (3.5-5.1); Protein, Total 7.1 g/dL (6.4-8.2); Sodium Level 138 mmol/L (136-145); Thyroid Stim Hormone (TSH) 2.61 uIU/mL (0.358-3.74); Triglycerides 147 mg/dL; Very Low Density Lipoprotein 29 mg/dL (5-40)
== END 2021-12-12 23:59 | disposition home or self-care (01) ==
LOC: POLAB3 13:01
PROVIDERS: PCP Family Medicine Geriatric Medicine; Visit Provider Family Medicine Geriatric Medicine
DX: E55.9 Vitamin D deficiency, unspecified (principal); E78.5 Hyperlipidemia, unspecified; I10 Essential (primary) hypertension
CPT/HCPCS: 36415; 80053; 80061; 82306; 84443; 85025

== ENCOUNTER → 2022-06-21 | Outpatient (CLI) | payer MEDICARE, SELFPAY ==
--- NOTE | 2022-06-21 10:52 | RAD_ITS ---
STUDY: X-RAY CHEST REASON FOR EXAM: Male, 81 years old. SHORTNESS OF BREATH TECHNIQUE: PA or AP and lateral. COMPARISON: 11/16/2021 FINDINGS: There is severe chronic interstitial disease involving both lungs. This spares the upper lobes bilaterally to a greater degree on the left. There is no demonstrated pleural abnormality. Normal size heart. Large hiatal hernia. Normal visualized pulmonary arteries. Normal visualized aortic arch and descending thoracic aorta. Normal visualized thoracic spine. Normal visualized ribs, clavicles, and shoulders. There is no demonstrated abnormality of the visualized soft tissue structures of the upper abdomen. RAD/Chest PA and Lateral IMPRESSION: Stable findings. Severe chronic interstitial fibrosis. Hiatal hernia. Electronically Signed: Babak Morales MD, BRE at 12:12 EDT ,
[2022-06-21 13:11] LABS: Absolute Lymphocyte Count 2.04 X10^3/uL (0.83-4.51); Absolute Neutrophil Count 5.9 X10^3/uL (2.0-7.7); Basophil# 0.05 X10^3/uL; Basophil% 0.6 % (0-1); Eosinophil# 0.13 X10^3/uL; Eosinophils% 1.5 % (0-5); Hematocrit 41.5 % (40-54); Hemoglobin 13.7 g/dL (13.0-16.5); Lymphocyte # 2.04 X10^3/ul (0.83-4.51); Lymphocyte % 23.1 % (19-41); Mean Corpuscular Hgb 31.9 pg (27.0-32.0); Mean Corpuscular Volume 96.5 fL (80-94); Mean Platelet Vol. 10.1 fl (6.2-12.0); Monocyte% 7.9 % (0-10); NRBC Flagged by Analyzer 0 % (0-5); Neutrophil % 66.6 % (47-70); Platelet Count 184 K/mm3 (150-450); RBC Distribution Width CV 13.3 % (11.6-14.6); RBC Distribution Width SD 47.9 fl (35.1-43.9); White Blood Count 8.9 K/mm3 (4.4-11.0)
[2022-06-21 13:41] LABS: Vitamin D,25 Hydroxy 23.8 ng/mL
[2022-06-21 13:51] LABS: ALB/GLOB Ratio 1.1 RATIO (0.9-2.4); AST(SGOT) 15 U/L (15-37); Alanine Aminotransfer ALT/SGPT 19 U/L (16-61); Albumin, Serum 3.7 g/dL (3.2-5.0); Alkaline Phosphatase 79 U/L (45-117); Anion Gap 6 (5-15); BUN 27 mg/dL (7-18); BUN/Creat Ratio 24.1 RATIO (10-20); Calcium,Total 8.8 mg/dL (8.5-10.1); Chloride 105 mmol/L (98-107); Cholesterol 160 mg/dL (200); Creatinine, Serum 1.12 mg/dL (0.70-1.30); EST Glomerular Filtration Rate 67 mL/min (>60); Est Glom Filt Rate - Afr Amer 81 mL/min (>60); Globulin 3.5 g/dL (2.2-4.2); Glucose 124 mg/dL (74-106); High Density Lipoprotein 41 mg/dL; Potassium 4.4 mmol/L (3.5-5.1); Protein, Total 7.2 g/dL (6.4-8.2); Sodium Level 137 mmol/L (136-145); Thyroid Stim Hormone (TSH) 2.21 uIU/mL (0.358-3.74); Triglycerides 112 mg/dL; Very Low Density Lipoprotein 22 mg/dL (5-40)
== END | disposition home or self-care (01) ==
PROVIDERS: PCP Family Medicine Geriatric Medicine; Referring Provider Family Medicine Geriatric Medicine; Visit Provider Family Medicine Geriatric Medicine
DX: R06.02 Shortness of breath (principal); E55.9 Vitamin D deficiency, unspecified; E78.5 Hyperlipidemia, unspecified; Z12.5 Encounter for screening for malignant neoplasm of prostate
CPT/HCPCS: 36415; 71046; 80053; 80061; 82306; 84153; 84443; 85025; G0103

== ENCOUNTER → 2023-01-08 | Outpatient (CLI) | payer MEDICARE, SELFPAY ==
[2023-01-08 10:42] LABS: Absolute Lymphocyte Count 1.61 X10^3/uL (0.83-4.51); Absolute Neutrophil Count 3.4 X10^3/uL (2.0-7.7); Basophil# 0.05 X10^3/uL; Basophil% 0.9 % (0-1); Eosinophil# 0.13 X10^3/uL; Eosinophils% 2.2 % (0-5); Hemoglobin 13.1 g/dL (13.0-16.5); Lymphocyte # 1.61 X10^3/ul (0.83-4.51); Lymphocyte % 27.6 % (19-41); Mean Corp Hgb Conc 32.8 g/dL (32-36); Mean Corpuscular Hgb 31.7 pg (27.0-32.0); Mean Corpuscular Volume 96.9 fL (80-94); Mean Platelet Vol. 9.5 fl (6.2-12.0); Monocyte# 0.59 X10^3/uL; Monocyte% 10.1 % (0-10); NRBC Flagged by Analyzer 0 % (0-5); Neutrophil # 3.44 X10^3/uL (2.7-7.7); Neutrophil % 58.9 % (47-70); Platelet Count 167 K/mm3 (150-450); RBC Distribution Width CV 12.8 % (11.6-14.6); RBC Distribution Width SD 45.2 fl (35.1-43.9); Red Blood Count 4.13 M/mm3 (4.6-6.2); White Blood Count 5.8 K/mm3 (4.4-11.0)
[2023-01-08 11:56] LABS: Anion Gap 8 (5-15); BUN 26 mg/dL (7-18); BUN/Creat Ratio 29.6 RATIO (10-20); CPK Total, Creatine Kinase 117 U/L (39-308); Calcium,Total 8.9 mg/dL (8.5-10.1); Chloride 108 mmol/L (98-107); Creatinine, Serum 0.88 mg/dL (0.70-1.30); EST Glomerular Filtration Rate 88 mL/min (>60); Est Glom Filt Rate - Afr Amer 106 mL/min (>60); Glucose 110 mg/dL (74-106); Potassium 4.2 mmol/L (3.5-5.1); Sodium Level 141 mmol/L (136-145); Troponin-I HS 10 pg/mL (3.0-78.0)
[2023-01-09 04:07] LABS: Myoglobin, Serum 49 ng/mL (28-72)
== END | disposition home or self-care (01) ==
LOC: POLAB3 10:05
PROVIDERS: PCP Family Medicine Geriatric Medicine; Visit Provider Family Medicine Geriatric Medicine
DX: R06.02 Shortness of breath (principal)
CPT/HCPCS: 36415; 80048; 82550; 83874; 84484; 85025

== ENCOUNTER → 2023-01-14 | Outpatient (CLI) | payer MEDICARE, SELFPAY ==
--- NOTE | 2023-01-14 13:12 | PFTCOMP_ITS ---
COMPLETE PULMONARY FUNCTION TEST INTERPRETATION Brief HPI: Patient is an 82-year-old male, currently under the care of Dr. York, who presents to [facility] [place] for complete pulmonary function tests secondary to diagnosis of dyspnea. Respiratory therapist reports good effort and reproducible results. Interpretation: Forced expiration spirometry shows no large airways obstructive ventilatory defect with an FEV1 of 111% predicted. There is no significant bronchodilator response by strict ATS criteria. Spirograms are of good quality and plateau normally. The respiratory flow volume loop shows a normal pattern. Lung volumes by body plethysmography show a normal total lung capacity at 7.11 L, 98% predicted. All other lung volumes are within normal limits. Diffusion capacity by carbon monoxide is normal at 86% predicted. The airway resistance is normal. No previous pulmonary function tests were available for review. Impression: These pulmonary function test within normal limits
== END | disposition home or self-care (01) ==
LOC: PSN 08:01
PROVIDERS: PCP Family Medicine Geriatric Medicine; Referring Provider Family Medicine Geriatric Medicine; Visit Provider Family Medicine Geriatric Medicine
DX: R06.02 Shortness of breath (principal)
CPT/HCPCS: 94060; 94726; 94729

== ENCOUNTER → 2023-02-05 | Outpatient (CLI) | payer MEDICARE, SELFPAY ==
[2023-02-05 09:20] LABS: Absolute Lymphocyte Count 1.65 X10^3/uL (0.83-4.51); Absolute Neutrophil Count 3.5 X10^3/uL (2.0-7.7); Basophil# 0.04 X10^3/uL; Basophil% 0.7 % (0-1); Eosinophil# 0.19 X10^3/uL; Eosinophils% 3.1 % (0-5); Hematocrit 40.4 % (40-54); Lymphocyte # 1.65 X10^3/ul (0.83-4.51); Lymphocyte % 27.3 % (19-41); Mean Corp Hgb Conc 32.2 g/dL (32-36); Mean Corpuscular Hgb 31.6 pg (27.0-32.0); Mean Corpuscular Volume 98.3 fL (80-94); Mean Platelet Vol. 9.4 fl (6.2-12.0); Monocyte# 0.63 X10^3/uL; Monocyte% 10.4 % (0-10); NRBC Flagged by Analyzer 0 % (0-5); Neutrophil # 3.51 X10^3/uL (2.7-7.7); Platelet Count 164 K/mm3 (150-450); RBC Distribution Width CV 13.2 % (11.6-14.6); RBC Distribution Width SD 47.1 fl (35.1-43.9); Red Blood Count 4.11 M/mm3 (4.6-6.2); White Blood Count 6.1 K/mm3 (4.4-11.0)
[2023-02-05 09:36] LABS: Rheumatoid Factor < 10.0 IU/mL (<15)
[2023-02-06 13:07] LABS: ANTINUCLEAR ANTIBODIES DIRECT Negative (Negative)
[2023-02-09 20:07] LABS: Cytoplasmic Ab (C-ANCA) <1:20 titer (Neg:<1:20); Immunoglobulin E 37 IU/mL (6-495); Perinuclear Ab (P-ANCA) <1:20 titer (Neg:<1:20); QNTFERON TB Mitogen Value > 10.00 IU/mL (.); QNTFERON TB Nil Value 0.07 IU/mL (.); QNTFERON TB1+ Ag Value 0.22 IU/mL (.); QNTIFERON TB Positive Criteria Negative (Negative)
== END | disposition home or self-care (01) ==
LOC: PAVLAB 08:25
PROVIDERS: PCP Family Medicine Geriatric Medicine; Referring Provider Internal Medicine; Visit Provider Internal Medicine
DX: J84.10 Pulmonary fibrosis, unspecified (principal)
CPT/HCPCS: 36415; 82785; 85025; 86038; 86225; 86235; 86256; 86431; 86480

== ENCOUNTER → 2023-02-20 | Outpatient (CLI) | payer MEDICARE, SELFPAY | END | disposition home or self-care (01) | LOC: LABSPEC 09:28 | PROVIDERS: PCP Family Medicine Geriatric Medicine; Referring Provider Internal Medicine; Visit Provider Internal Medicine | DX: J84.10 Pulmonary fibrosis, unspecified (principal) | CPT/HCPCS: 87070; 87077; 87186; 87205 ==

== ENCOUNTER → 2023-03-06 | Outpatient (CLI) | payer MEDICARE, SELFPAY ==
--- NOTE | 2023-03-06 14:15 | CT_ITS ---
INDICATION: Interstitial pulmonary fibrosis -- HIGH RESOLUTION EXAMINATION: CT CHEST WITHOUT CONTRAST - CT Chest W/O Contrast Injection TECHNIQUE: Helically acquired images were obtained of the chest. A radiation dose optimization technique was used for this scan. IV Contrast dosage and agent: None. COMPARISON: June 21, 2022 chest radiograph. FINDINGS: LUNGS, PLEURA AND LARGE AIRWAYS: Diffuse centrilobular emphysematous change, most prominent in the upper lungs. No consolidation effusion or pneumothorax. Scattered peripheral fibrosis most prominent in the mid to lower lungs with reticular opacification and traction bronchiectasis. Limited honeycombing in the dependent lower lobes and along the lingula. No evidence of cystic or solid pulmonary mass. Bilateral apical scarring. Small left calcified granulomas. THYROID: No thyroid lesions. HEART AND PERICARDIUM: No cardiomegaly or pericardial effusion. Mild coronary atherosclerosis. Mitral annular calcifications. Dense aortic valvular calcifications. VESSELS: Aortic atherosclerosis without ectasia.. MEDIASTINUM AND SARA: Scattered subcentimeter mediastinal lymph nodes, nonpathologic by size criteria. No bulky hilar adenopathy. Large hiatal hernia and with organoaxial gastric volvulus. A portion of the cardia of the stomach remains inferior to the diaphragm. No gross gastric wall thickening or surrounding inflammation. No proximal esophageal distention to suggest obstruction. UPPER ABDOMEN: Scattered colonic diverticulosis without evidence of diverticulitis. BONES: No suspicious lytic or blastic abnormality. CT/Chest without Contrast IMPRESSION: 1. 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 2. Moderate diffuse emphysematous change. 3. Large hiatal hernia with organoaxial gastric volvulus. No evidence of associated obstruction, ischemia, or inflammation. 4. Aortic and coronary atherosclerosis as above. Electronically Signed: Charles Shin MD at 23:11 EDT ,
== END | disposition home or self-care (01) ==
LOC: CT 14:14
PROVIDERS: PCP Family Medicine Geriatric Medicine; Referring Provider Internal Medicine; Visit Provider Internal Medicine
DX: J84.10 Pulmonary fibrosis, unspecified (principal)
CPT/HCPCS: 71250

== ENCOUNTER → 2023-05-22 | Outpatient (CLI) | payer MEDICARE, SELFPAY ==
[2023-05-22 11:55] LABS: AST(SGOT) 16 U/L (15-37); Alanine Aminotransfer ALT/SGPT 20 U/L (16-61); Albumin, Serum 3.7 g/dL (3.2-5.0); Alkaline Phosphatase 82 U/L (45-117); Globulin 3.6 g/dL (2.2-4.2); Protein, Total 7.3 g/dL (6.4-8.2)
== END | disposition home or self-care (01) ==
LOC: PAVLAB 10:24
PROVIDERS: PCP Family Medicine Geriatric Medicine; Referring Provider Internal Medicine Critical Care Medicine; Visit Provider Internal Medicine Critical Care Medicine
DX: J84.10 Pulmonary fibrosis, unspecified (principal)
CPT/HCPCS: 36415; 80076

== ENCOUNTER 2023-06-27 11:54 | Emergency (ER) | payer MEDICARE, SELFPAY ==
[2023-06-27 11:54] VITALS: BP 145/81; PULSE 67; RESP 16; TEMP 36.6; O2SAT 96; BMI 22.2
[2023-06-27 12:07] VITALS: O2SAT 97
[2023-06-27 12:13] VITALS: O2SAT 98
[2023-06-27 13:51] LABS: Absolute Lymphocyte Count 0.82 X10^3/uL (0.83-4.51); Absolute Neutrophil Count 2.4 X10^3/uL (2.0-7.7); Basophil# 0.02 X10^3/uL; Basophil% 0.5 % (0-1); Eosinophil# 0.01 X10^3/uL; Eosinophils% 0.3 % (0-5); Hematocrit 37.8 % (40-54); Hemoglobin 12.5 g/dL (13.0-16.5); Lymphocyte # 0.82 X10^3/ul (0.83-4.51); Lymphocyte % 20.9 % (19-41); Mean Corp Hgb Conc 33.1 g/dL (32-36); Mean Corpuscular Hgb 31.6 pg (27.0-32.0); Mean Corpuscular Volume 95.7 fL (80-94); Mean Platelet Vol. 9.2 fl (6.2-12.0); Monocyte# 0.69 X10^3/uL; Monocyte% 17.6 % (0-10); NRBC Flagged by Analyzer 0 % (0-5); Neutrophil # 2.38 X10^3/uL (2.7-7.7); Neutrophil % 60.4 % (47-70); Platelet Count 110 K/mm3 (150-450); RBC Distribution Width CV 13.3 % (11.6-14.6); RBC Distribution Width SD 47.4 fl (35.1-43.9); Red Blood Count 3.95 M/mm3 (4.6-6.2); White Blood Count 3.9 K/mm3 (4.4-11.0)
[2023-06-27 14:00] VITALS: BP 144/73; PULSE 73; RESP 14; O2SAT 97
--- NOTE | 2023-06-27 14:06 | RAD_ITS ---
STUDY: X-RAY CHEST REASON FOR EXAM: Male, 82 years old. Cough TECHNIQUE: PA and lateral views of the chest. COMPARISON: Comparison is made with prior study done June 21, 2022. FINDINGS: Hyperinflation. Progressive increase interstitial markings with areas of confluence at the lung bases slightly worse on the left side suggestive of chronic interstitial fibrosis. Possible superimposed atelectasis at the left lung base. There is no demonstrated pleural abnormality. Normal size heart. Normal mediastinum and shena. Normal visualized pulmonary arteries. There is atherosclerotic calcification of the aortic arch with tortuosity. There are diffuse degenerative changes of the visualized thoracic spine. Normal visualized ribs, clavicles, and shoulders. Large hiatal hernia. RAD/Chest PA and Lateral IMPRESSION: Findings in keeping with the interstitial fibrosis worse at the left lung base with possible superimposed atelectasis. Electronically Signed: Manoj Matt MD at 14:25 EDT ,
[2023-06-27 14:08] LABS: Anion Gap 8 (5-15); BUN 18 mg/dL (7-18); BUN/Creat Ratio 22.6 RATIO (10-20); Calcium,Total 8.3 mg/dL (8.5-10.1); Chloride 102 mmol/L (98-107); EST Glomerular Filtration Rate 98 mL/min (>60); Est Glom Filt Rate - Afr Amer 119 mL/min (>60); Estimated Creatinine Clearance 80.01 ml/min; Glucose 98 mg/dL (74-106); Potassium 3.9 mmol/L (3.5-5.1); Sodium Level 135 mmol/L (136-145)
--- NOTE | 2023-06-27 14:57 | EX.ED.DYSGE1 ---
HPI History of Present Illness Chief Complaint: General Illness Informant: patient Narrative Narrative: Patient complains that he has myalgias and he has a positive troponin. Patient states yesterday evening he started to feel bad. Most of his complaints are myalgias. He states he had a little bit of a cough but not bringing anything up. He is not short of breath. He has oxygen at home but usually does not use it. And he is not desaturating now. He has no nausea vomiting diarrhea or pain in his abdomen. His primary complaints is myalgias. He thinks he may have had a fever but did not measure it. Patient does have a history of some pulmonary fibrosis thought to be related to scarring from a prior pneumonia. [facility] Medical History Interstitial pulmonary fibrosis Tremor Home Medications propranolol 10 mg tablet 10 mg PO BID #60 TABLETS 02/07/15 [Rx Last Taken 06/01/15 07:00] albuterol sulfate 90 mcg/actuation aerosol inhaler 2 puff inhalation Q6H PRN shortness of breath or wheezing #8.5 grams 04/26/23 [Rx Last Taken Unknown] nintedanib 150 mg capsule 150 mg PO Q12H #60 caps 05/22/23 [Rx Last Taken Unknown] Allergy/AdvReac Type Severity Reaction Status Date / Time No Known Allergies Allergy Verified 05/22/23 09:44 Family History Son Cancer CVA (cerebral vascular accident) Surgical History History of tonsillectomy Social History Smoking Status: Former smoker how long ago did patient quit smokin years ago ROS ROS ED Constitutional Constitutional ED: Reports subjective ENT ENT ED: Reports rhinorrhea; Denies sore throat Cardiovascular Cardiovascular: Denies chest pain or palpitations Respiratory/Chest Respiratory/Chest: Reports cough; Denies dyspnea or sputum Gastrointestinal Gastrointestinal: Denies abdominal pain, diarrhea, nausea or vomiting Genitourinary Genitourinary ED: Denies dysuria Musculoskeletal Musculoskeletal: Reports myalgias Integumentary Denies rash Neurologic Neurologic: Denies headache(s) Endocrine Endocrinology: Denies polydipsia or polyuria Hematologic/Lymphatic Hematologic/Lymphatic: Denies easy bleeding, easy bruising or lymphadenopathy Allergic/Immunologic Allergic/Immunologic ED: Denies urticaria EXAM Physical Exam Narrative Exam Narrative: CONSTITUTIONAL: Patient is nontoxic in appearance. The patient looks comfortable. Work of breathing looks normal. HEENT: No notable trauma. Mucous membranes moist. No sinus tenderness. No indication of pain with swallowing. Throat is not red. EYES: No conjunctival injection. No proptosis. NECK:No JVD. No stridor. CARDIOVASCULAR: Regular rate. Regular rhythm. No notable murmur. No JVD. RESPIRATORY: No respiratory distress. Breathing is unlabored. No wheezes. No rhonchi. No rales. No pain with a deep breath. No chest wall tenderness. Overall his pulmonary exam is pretty normal. Saturations are 96 to 98% on room air showing no hypoxia on the monitor. This is without his oxygen that he does have available at home. GASTROINTESTINAL: Not distended. Bowel sounds are normal. No tenderness. No guarding. No rebound. No palpable mass. No bruit is heard. GENITOURINARY: No tenderness over the bladder. No CVA tenderness. MUSCULOSKELETAL: Atraumatic. No peripheral edema. No cord. No tenderness along the deep venous system. No asymmetry. No distended veins. NEUROLOGICAL: Patient is alert and appropriate. No focal deficit noted. SKIN: No noted rashes. No diaphoresis. PSYCHIATRIC: Patient is calm. Mood is appropriate. Const Vital Signs: 06/27/23 11:54 06/27/23 12:07 06/27/23 12:12 Temperature 97.8 F Temperature Source Temporal Pulse Rate 67 Respiratory Rate 16 Respiratory Effort Short of Breath Blood Pressure 145/81 H Blood Pressure Mean 102 Pulse Ox 96 97 Oxygen Delivery Method Room Air Room Air 06/27/23 12:13 Temperature Temperature Source Pulse Rate Respiratory Rate Respiratory Effort Short of Breath Blood Pressure Blood Pressure Mean Pulse Ox Oxygen Delivery Method Room Air MDM MDM MDM Narrative Medical decision making narrative: We discussed options with the patient. We did agreed to do some blood work and x-ray. His CBC does show slightly low white count consistent with COVID. Mild anemia and thrombocytopenia also. Electrolytes show no marked abnormalities. Glucose is normal at 98. My independent or potation of his two-view PA and lateral chest x-ray does show a lot of fibrotic changes. But similar to prior. Final reading shows findings in keeping with the interstitial cyst worse at the left lung base with possible superimposed atelectasis. I checked with the patient again. He states he feels well. We discussed Paxlovid. With his age and history of pulmonary fibrosis [facility] does indicate this. Patient would prefer not to. I explained he still has days to decide if he gets worse. He states he will just take Tylenol and rest at home. He has oxygen available if he needs it but he does not feel short of breath. Lab Data Attestation: I reviewed the patient's lab results. Labs: Laboratory Results - last 24 hr 06/27/23 13:40 WBC 3.9 L RBC 3.95 L Hgb 12.5 L Hct 37.8 L MCV 95.7 H MCH 31.6 MCHC 33.1 RDW Std Deviation 47.4 H RDW Coeff of Roe 13.3 Plt Count 110 L MPV 9.2 Immature Gran % (Auto) 0.300 Neut % (Auto) 60.4 Lymph % (Auto) 20.9 [place] % (Auto) 17.6 H Eos % (Auto) 0.3 Baso % (Auto) 0.5 Absolute Neuts (auto) 2.4 Absolute Lymphs (auto) 0.82 L Nucleated RBC % 0 Sodium 135 L Potassium 3.9 Chloride 102 Carbon Dioxide 25.0 Anion Gap 8 BUN 18 Creatinine 0.80 Estim Creat Clear Calc 80.01 Est GFR (MDRD) Af Amer 119 Est GFR (MDRD) Non-Af 98 BUN/Creatinine Ratio 22.6 H Glucose 98 Calcium 8.3 L Radiography Diagnostic Testing: Clinical Impression(s) from Imaging Studies Chest X-Ray 06/27/23 14:06 IMPRESSION: Findings in keeping with the interstitial fibrosis worse at the left lung base with possible superimposed atelectasis. Electronically Signed: Manoj Matt MD at 14:25 EDT , Discharge Plan Triage Chief Complaint: General Illness ED Provider: Wang Mccracken Dx/Rx/DC Orders Clinical Impression: COVID, History of pulmonary fibrosis Instructions: Coronavirus Disease 2019 (COVID-19): Caring for Yourself or Others Prescriptions: No Action nintedanib 150 mg capsule 150 mg PO Q12H Qty: 60 6RF albuterol sulfate 90 mcg/actuation HFA aerosol inhaler 2 puff inhalation Q6H PRN (Reason: shortness of breath or wheezing) Qty: 8.5 0RF propranolol 10 MG tablet 10 mg PO BID Qty: 60 6RF Patient Comments: heart/TREMORS Primary Care Provider: Laurent York Chi Referrals: Laurent York Chi, MD [Primary Care Provider] - 3-5 Days if not improving Disposition Disposition: Home, Self Care
[2023-06-27 15:13] VITALS: O2SAT 96
== END 2023-06-27 15:13 | disposition home or self-care (01) ==
PROVIDERS: Emergency Provider Emergency Medicine; PCP Family Medicine Geriatric Medicine; Visit Provider Emergency Medicine
DX: U07.1 COVID-19 (principal); Z87.891 Personal history of nicotine dependence
CPT/HCPCS: 71046; 80048; 85025; 87426; 99285

== ENCOUNTER → 2023-06-30 | Outpatient (CLI) | payer MEDICARE, SELFPAY ==
[2023-06-30 11:25] LABS: Absolute Lymphocyte Count 1.35 X10^3/uL (0.83-4.51); Absolute Neutrophil Count 2.5 X10^3/uL (2.0-7.7); Basophil# 0.02 X10^3/uL; Basophil% 0.4 % (0-1); Eosinophil# 0.07 X10^3/uL; Eosinophils% 1.6 % (0-5); Hematocrit 40.6 % (40-54); Hemoglobin 12.7 g/dL (13.0-16.5); Lymphocyte # 1.35 X10^3/ul (0.83-4.51); Lymphocyte % 30.1 % (19-41); Mean Corp Hgb Conc 31.3 g/dL (32-36); Mean Corpuscular Hgb 30.8 pg (27.0-32.0); Mean Corpuscular Volume 98.5 fL (80-94); Monocyte% 11.2 % (0-10); NRBC Flagged by Analyzer 0 % (0-5); Neutrophil # 2.53 X10^3/uL (2.7-7.7); Neutrophil % 56.5 % (47-70); Platelet Count 130 K/mm3 (150-450); RBC Distribution Width CV 13.2 % (11.6-14.6); Red Blood Count 4.12 M/mm3 (4.6-6.2); White Blood Count 4.5 K/mm3 (4.4-11.0)
[2023-06-30 11:37] LABS: Vitamin D,25 Hydroxy 34.1 ng/mL
[2023-06-30 11:50] LABS: ALB/GLOB Ratio 0.9 RATIO (0.9-2.4); AST(SGOT) 14 U/L (15-37); Alanine Aminotransfer ALT/SGPT 18 U/L (16-61); Albumin, Serum 3.2 g/dL (3.2-5.0); Alkaline Phosphatase 70 U/L (45-117); Anion Gap 4 (5-15); BUN 19 mg/dL (7-18); BUN/Creat Ratio 22.1 RATIO (10-20); Calcium,Total 8.1 mg/dL (8.5-10.1); Chloride 106 mmol/L (98-107); Cholesterol 113 mg/dL (200); Creatinine, Serum 0.86 mg/dL (0.70-1.30); EST Glomerular Filtration Rate 90 mL/min (>60); Est Glom Filt Rate - Afr Amer 109 mL/min (>60); Globulin 3.5 g/dL (2.2-4.2); Glucose 91 mg/dL (74-106); High Density Lipoprotein 37 mg/dL; Potassium 4.3 mmol/L (3.5-5.1); Protein, Total 6.7 g/dL (6.4-8.2); Sodium Level 138 mmol/L (136-145); Thyroid Stim Hormone (TSH) 2.11 uIU/mL (0.358-3.74); Triglycerides 116 mg/dL; Very Low Density Lipoprotein 23 mg/dL (5-40)
== END | disposition home or self-care (01) ==
PROVIDERS: PCP Family Medicine Geriatric Medicine; Visit Provider Family Medicine Geriatric Medicine
DX: I10 Essential (primary) hypertension (principal); E55.9 Vitamin D deficiency, unspecified; E78.5 Hyperlipidemia, unspecified
CPT/HCPCS: 36415; 80053; 80061; 82306; 84443; 85025

== ENCOUNTER 2024-06-05 20:07 | Emergency (ER) | payer MEDICARE, SELFPAY ==
[2024-06-05 20:08] VITALS: BP 150/88; PULSE 99; RESP 16; TEMP 36.7; O2SAT 98; BMI 20.4
--- NOTE | 2024-06-05 21:13 | EX.ED.DYSGE1 ---
HPI History of Present Illness Chief Complaint: Bite Informant: patient and family Narrative Narrative: Here with granddaughter concerns for bite to the right forearm. Woke up with pain. Was outdoors yesterday. There was a bump in the blister states he scratched at it opened up. Discomfort throughout the day he states had transient chills and dizziness and nausea. Currently resolved. Denies diabetes history. PFSH PFS Medical History Interstitial pulmonary fibrosis Tremor Home Medications ?Medication ?Instructions ?Recorded ?Last Taken ?Type propranolol 10 mg tablet 10 mg PO BID #60 TABLETS 02/07/15 06/01/15 07:00 Rx nintedanib 150 mg capsule 150 mg PO Q12H #60 caps 05/10/24 Unknown Rx amoxicillin 875 mg-potassium 875 mg PO Q12H #20 TABLETS 06/05/24 Unknown Rx clavulanate 125 mg tablet Allergy/AdvReac Type Severity Reaction Status Date / Time No Known Allergies Allergy Verified 06/05/24 20:08 Family History Son Cancer CVA (cerebral vascular accident) Surgical History History of tonsillectomy Social History Smoking Status: Never smoker how long ago did patient quit smokin years ago ROS ROS ED Constitutional Constitutional ED: Reports chills; Denies fever(s) or sweats Eyes Eyes: Denies change in vision ENT ENT ED: Denies dysphagia or sore throat Cardiovascular Cardiovascular: Denies chest pain, leg edema, palpitations or racing heartbeat Respiratory/Chest Respiratory/Chest: Denies cough, dyspnea or dyspnea on exertion Gastrointestinal Gastrointestinal: Reports nausea; Denies abdominal pain, diarrhea or vomiting Genitourinary Genitourinary ED: Denies dysuria, hematuria or urinary frequency Musculoskeletal Musculoskeletal: Denies back pain, extremity pain or neck pain Integumentary Reports wounds; Denies rash Neurologic Neurologic: Reports other Details: Dizzy ; Denies headache(s), paresthesias or weakness EXAM Physical Exam Const Vital Signs: 06/05/24 20:08 Temperature 98.1 F Temperature Source Oral Pulse Rate 99 Respiratory Rate 16 Blood Pressure 150/88 H Blood Pressure Mean 108 Pulse Ox 98 Oxygen Delivery Method Room Air Positive well nourished and well developed General Appearance ED: well developed and NAD HEENT Reports moist mucous membranes normocephalic and atraumatic Eyes EOMs intact bilaterally and conjunctivae normal General Eye ED: Yes normal appearance of both eyes Neck no lymphadenopathy and supple General: Negative for tenderness Chest Wall Chest: Negative for tenderness Resp normal respiratory effort and normal air movement Effort and Inspection: symmetric chest movement; Negative for respiratory distress Cardio regular rate, regular rhythm and no murmurs Peripheral Pulses: pulses 2+ throughout GI normal to inspection, nondistended, normoactive bowel sounds and non-tender Palpation: Negative for guarding or rebound tenderness present Back/Spine no CVA tenderness and no thoracic nor lumbar tenderness Extremity Extremity Narrative: Right upper extremity: Small dime size induration open wound proximal dorsal forearm. There is surrounding erythema palm size extends to the mid forearm. Does not extend to the elbow no pain with elbow movement. No active drainage. General Extremety ED: Yes tenderness; Negative for edema General Extremity: Negative for edema Neuro oriented x3 and no sensory deficits noted Sensorium / Orientation: awake and alert Skin no rashes or lesions noted and no wounds MDM MDM MDM Narrative Medical decision making narrative: Interventions / MDM: Differential diagnosis: Insect bite, cellulitis Diagnosis considered but do not suspect: No clinical bursitis or septic joint My EKG interpretation: N/A Imaging independently reviewed and interpreted by myself: N/A External documents reviewed: N/A Test considered but not ordered:N/A ED course: Patient likely insect bite with the bump, there is surrounding erythema that is warm. No joint involvement, this is also away from bursa areas. Erythema was outlined. Meds to bed started on Augmentin. Discussed return precautions. All questions were answered. Re-evaluation: stable Disposition discussed with patient/family/significant other: Patient and granddaughter Case discussed with consulting clinician: N/A This note was generated with [employer] dictation software. It may contain incorrect words, spelling, and punctuation that were not noted in checking the note before signing. Discharge Plan Triage Chief Complaint: Bite ED Provider: Ed Callahan Dx/Rx/DC Orders Clinical Impression: Insect bite, Cellulitis of arm, right Instructions: ED Cellulitis, ED Insect Bite Prescriptions: New amoxicillin-pot clavulanate 875-125 mg tablet 875 mg PO Q12H Qty: 20 0RF No Action propranolol 10 MG tablet 10 mg PO BID Qty: 60 6RF Patient Comments: heart/TREMORS nintedanib 150 mg capsule 150 mg PO Q12H Qty: 60 12RF Primary Care Provider: Laurent York Chi Referrals: Laurent York Chi, MD [Primary Care Provider] - 1 Week Activity Restrictions/Additional Instructions: Take and finish antibiotic as prescribed. Monitor for worsening symptoms return, otherwise follow-up with your doctor. Print Language: Belarusian Disposition Disposition: Home, Self Care Discharge Date/Time: 06/05/24 21:45
== END 2024-06-05 21:45 | disposition home or self-care (01) ==
PROVIDERS: Emergency Provider Emergency Medicine; PCP Family Medicine Geriatric Medicine; Visit Provider Emergency Medicine
DX: L03.113 Cellulitis of right upper limb (principal); J84.10 Pulmonary fibrosis, unspecified; S50.861A Insect bite (nonvenomous) of right forearm, initial encounter; R25.1 Tremor, unspecified; Z79.899 Other long term (current) drug therapy; W57.XXXA Bitten or stung by nonvenomous insect and other nonvenomous arthropods, initial encounter
CPT/HCPCS: 99282

== ENCOUNTER → 2024-06-08 | Outpatient (CLI) | payer MEDICARE, SELFPAY ==
--- NOTE | 2024-06-08 16:03 | CT_ITS ---
STUDY: CTA CHEST REASON FOR EXAM: Male, 83 years old. HEMOPTYSIS RADIATION DOSAGE (If Supplied By Facility): CTDIvol = ( 22.18 ) mGy, DLP = ( 423.01 ) mGycm TECHNIQUE: The examination was performed with the intravenous administration of IV 100mL [id number]-370. Post-processing of the angiographic images was performed, with multiplanar reformation and 3D reconstruction. Individualized dose optimization techniques were used for this CT. COMPARISON: None. FINDINGS: Normal enhancement of the main pulmonary artery and right and left pulmonary arteries. Normal enhancement of the bilateral peripheral pulmonary arteries. There is no demonstrated pulmonary embolism. Atherosclerotic changes of the aorta without evidence for aneurysm.. There is no demonstrated aortic dissection. There is a massive hiatal hernia containing large portion of the stomach, portion of the colon, and intra-abdominal fat displacing the heart anteriorly.. There is multivessel coronary artery calcification Tiny subcentimeter hilar and mediastinal nodes likely benign Normal visualized trachea and bronchi. The lungs are well expanded. Chronic interstitial thickening and emphysematous changes are noted. There are patchy areas of groundglass opacity in the posterior segment of the right upper lobe, superior segment of the right lower lobe, and left lower lobe possibly representing coexisting inflammatory disease. Normal pleura. Normal chest wall structures. Dorsal spine demonstrates mild spondylosis. Normal visualized upper abdomen. CT/CTA Chest W/WO Contrast IMPRESSION: Extensive interstitial and emphysematous change with patchy areas of groundglass opacity possibly representing coexisting inflammatory disease. No evidence for pulmonary embolus. Incidental finding of massive hiatal hernia Electronically Signed: Hilton Guido MD at 18:14 EDT ,
[2024-06-08 16:40] LABS: CREATININE FINGERSTICK < 1.0 mg/dL (0.70-1.30); EGFR FINGERSTICK > 60.0000 mL/min (>60)
[2024-06-15 14:09] LABS: Lyme IgG P18 Ab Absent (.); Lyme IgG P23 Ab Absent (.); Lyme IgG P28 Ab Absent (.); Lyme IgG P30 Ab Absent (.); Lyme IgG P39 Ab Absent (.); Lyme IgG P41 Ab Absent (.); Lyme IgG P45 Ab Absent (.); Lyme IgG P58 Ab Absent (.); Lyme IgG P66 Ab Absent (.); Lyme IgG P93 Ab Absent (.); Lyme IgG WB Interpretation Negative (.); Lyme IgM P23 Ab Absent (.); Lyme IgM P39 Ab Absent (.); Lyme IgM P41 Ab Absent (.); Lyme IgM WB Interpretation Negative (.)
== END | disposition home or self-care (01) ==
PROVIDERS: PCP Family Medicine Geriatric Medicine; Referring Provider Family Medicine Geriatric Medicine; Visit Provider Family Medicine Geriatric Medicine
DX: R04.2 Hemoptysis (principal); W57.XXXA Bitten or stung by nonvenomous insect and other nonvenomous arthropods, initial encounter
CPT/HCPCS: 36415; 71275; 86617; Q9967; A4216

== ENCOUNTER 2024-07-18 18:59 | Emergency (ER) | payer MEDICARE, SELFPAY ==
[2024-07-18 19:00] VITALS: BP 162/118; PULSE 110; RESP 19; TEMP 36.4; O2SAT 99; BMI 20.4
--- NOTE | 2024-07-18 19:20 | CT_ITS ---
STUDY: CT BRAIN WITHOUT CONTRAST REASON FOR EXAM: Male, 84 years old. headache, dizzy Individualized dose optimization techniques were used for this CT. TECHNIQUE: Transaxial CT imaging of the brain was performed without administration of intravenous contrast material. COMPARISON: None FINDINGS: There are calcifications noted in the distal vertebral arteries. There are calcifications noted in the cavernous carotid arteries. This is consistent for atherosclerotic disease. Normal calvarium. Normal soft tissues. There is mild cerebral atrophy with widening of the extra-axial spaces and ventricular dilatation. There are areas of decreased attenuation within the white matter tracts of the supratentorial brain, consistent with microvascular disease changes. Normal basal ganglia and thalami. Normal brainstem. There is mild cerebellar atrophy. There is no intracranial hemorrhage. There are no findings of an acute ischemic infarction. Normal visualized paranasal sinuses. ASPECTS Score for Acute Strokes: 06/03 CT/Brain/Head without Contrast IMPRESSION: There are no acute findings. Chronic involutional changes of the brain. Electronically Signed: Edwardo Garcia MD at 20:17 EST Reading Location ID and State: [facility] / [place] , Service support ,
--- NOTE | 2024-07-18 19:29 | EX.ED.DYSGE1 ---
HPI History of Present Illness Chief Complaint: Dizziness Informant: patient and spouse/S.O. Narrative Narrative: 84-year-old male complaining of intermittent spinning dizziness for the past 3 to 4 days. Episodes last for a minute or less when they occur and are triggered every time by some type of movement usually his head. Getting out of bed he had it as well. He thinks he was just walking when it originally started several days ago. He thinks he has had some vertigo before but does not remember any of the details. It was in the past. He states he has had some mild occasional headaches that have been intermittent as well for the past couple days. He denies a sudden onset severe headache or thunderclap associated with the onset of any of these episodes. No loss of consciousness. When the dizziness is present he feels off balance and has almost fallen, but states today he caught himself and did not injure himself. He denies any focal neurologic symptoms or problems speaking or understanding others or confusion. He states sometimes his vision is blurry with this and he gets nauseated but has had no vision loss, diplopia, no tinnitus, and no vomiting. No recent ear infection or URI. No recent head injuries. Before coming here, checked his blood pressure and it was in the 160s/110s, as it is here in triage. She states that is unusual for him. [facility] Medical History Interstitial pulmonary fibrosis Tremor Home Medications ?Medication ?Instructions ?Recorded ?Last Taken ?Type propranolol 10 mg tablet 10 mg PO BID #60 TABLETS 02/07/15 06/01/15 07:00 Rx nintedanib 150 mg capsule 150 mg PO Q12H #60 caps 05/10/24 Unknown Rx amoxicillin 875 mg-potassium 875 mg PO Q12H #20 TABLETS 06/05/24 Unknown Rx clavulanate 125 mg tablet Allergy/AdvReac Type Severity Reaction Status Date / Time No Known Allergies Allergy Verified 07/18/24 19:01 Family History Son Cancer CVA (cerebral vascular accident) Surgical History History of tonsillectomy Social History Smoking Status: Never smoker how long ago did patient quit smokin years ago ROS ROS ED Constitutional Constitutional ED: Denies chills or fever(s) Eyes Eyes: Denies change in vision or diplopia ENT ENT ED: Reports dizziness; Denies ear pain, rhinorrhea, sore throat or tinnitus Cardiovascular Cardiovascular: Denies chest pain or palpitations Respiratory/Chest Respiratory/Chest: Denies cough or dyspnea Gastrointestinal Gastrointestinal: Reports nausea; Denies abdominal pain, diarrhea or vomiting Genitourinary Genitourinary ED: Denies dysuria or hematuria Musculoskeletal Musculoskeletal: Denies back pain or neck pain Integumentary Denies abscess or rash Neurologic Neurologic: Reports dizziness, headache(s), vertigo and other Details: Normal gait when not dizzy ; Denies abnormal gait, abnormal hearing, abnormal speech, confusion, focal weakness, paresthesias, syncope or weakness Psychiatric Psychiatric: Denies anxiety or suicidal thoughts EXAM Physical Exam Const Vital Signs: 07/18/24 19:00 07/18/24 20:36 Temperature 97.6 F L Temperature Source Temporal Pulse Rate 110 H 89 Respiratory Rate 19 H 16 Blood Pressure 162/118 H 135/96 H Blood Pressure Mean 132 109 Pulse Ox 99 100 Oxygen Delivery Method Room Air Room Air Positive well nourished and well developed General Appearance ED: well developed and NAD HEENT Reports TM's clear and moist mucous membranes normocephalic and atraumatic Tympanic Membrane ED: Yes TM's clear Eyes PERRL and EOMs intact bilaterally Neck full ROM and supple Resp normal respiratory effort and clear to auscultation bilaterally Cardio regular rate and regular rhythm GI non-tender and non-distended Auscultation: normoactive bowel sounds Palpation: soft Back/Spine no CVA tenderness General Back: other FROM Extremity normal to inspection General Extremety ED: Negative for edema, pulses abnormal or tenderness General Extremity: Negative for edema or pulses abnormal Neuro oriented x3, CN's II-XII intact bilaterally and no sensory deficits noted Neuro Narrative: Normal avjtrn-oz-rrxb and vasf-za-sxgu bilaterally, no dysmetria. No ataxia when walking, gait is normal. Normal speech and inner layer scrubber tender. Normal skew test. No pathologic nystagmus when tested at rest without vertiginous symptoms. Positive Sunil-Hallpike to the right with horizontal nystagmus induced; the rest of the Jose Antonio maneuver was continued. Patient had 20 or 30 seconds of vertiginous symptoms with each maneuver that resolved gradually each time. 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 This is with the exception of the headaches, however they have been relatively mild according to the patient. Given this and his elevated blood pressure obtaining a CT of the head, but this is to rule out bleed. It is possible his blood pressure is elevated because he feels poorly from the vertigo. I reviewed the CT images and report which I agree with, it is negative for any acute. I reexamination patient is feeling well he is no more vertigo, and blood pressure is 135/96 without specifically intervening on it. His vital signs are otherwise normal. I feel this is likely BPPV. Patient advised to follow with ENT if he has persistent symptoms. We discussed reasons to return comfortable with that plan. Radiography Diagnostic Testing: Clinical Impression(s) from Imaging Studies Brain CT 07/18/24 19:20 IMPRESSION: There are no acute findings. Chronic involutional changes of the brain. Electronically Signed: Edwardo Garcia MD at 20:17 EST Reading Location ID and State: [facility] / [place] , Service support , Discharge Plan Triage Chief Complaint: Dizziness ED Provider: Arnulfo Todd Dx/Rx/DC Orders Clinical Impression: Benign paroxysmal positional vertigo of right ear, Episode of hypertension Instructions: BPPV Prescriptions: No Action propranolol 10 MG tablet 10 mg PO BID Qty: 60 6RF Patient Comments: heart/TREMORS amoxicillin-pot clavulanate 875-125 mg tablet 875 mg PO Q12H Qty: 20 0RF nintedanib 150 mg capsule 150 mg PO Q12H Qty: 60 12RF Primary Care Provider: Laurent York Chi Referrals: Darinel Prajapati MD [Med Staff - Active Staff] - 1 Week if not improving Jaylen,Laurent Chi, MD [Primary Care Provider] - Print Language: Chinese Disposition Disposition: Home, Self Care
[2024-07-18 20:36] VITALS: BP 135/96; PULSE 89; RESP 16; O2SAT 100
== END 2024-07-18 20:48 | disposition home or self-care (01) ==
PROVIDERS: Emergency Provider Emergency Medicine; PCP Family Medicine Geriatric Medicine; Visit Provider Emergency Medicine
DX: H81.10 Benign paroxysmal vertigo, unspecified ear (principal); I10 Essential (primary) hypertension; Z79.899 Other long term (current) drug therapy
CPT/HCPCS: 70450; 99282

== ENCOUNTER → 2024-07-19 | Outpatient (CLI) | payer MEDICARE, SELFPAY ==
[2024-07-19 15:53] LABS: Absolute Lymphocyte Count 2.03 X10^3/uL (0.83-4.51); Absolute Neutrophil Count 3.5 X10^3/uL (2.0-7.7); Basophil# 0.05 X10^3/uL; Basophil% 0.8 % (0-1); Eosinophil# 0.12 X10^3/uL; Eosinophils% 1.9 % (0-5); Hematocrit 38.9 % (40-54); Hemoglobin 12.7 g/dL (13.0-16.5); Lymphocyte # 2.03 X10^3/ul (0.83-4.51); Lymphocyte % 32.1 % (19-41); Mean Corp Hgb Conc 32.6 g/dL (32-36); Mean Corpuscular Hgb 32.3 pg (27.0-32.0); Mean Platelet Vol. 9.3 fl (6.2-12.0); Monocyte# 0.65 X10^3/uL; Monocyte% 10.3 % (0-10); NRBC Flagged by Analyzer 0 % (0-5); Neutrophil # 3.45 X10^3/uL (2.7-7.7); Neutrophil % 54.6 % (47-70); Platelet Count 197 K/mm3 (150-450); RBC Distribution Width CV 13.4 % (11.6-14.6); RBC Distribution Width SD 48.9 fl (35.1-43.9); Red Blood Count 3.93 M/mm3 (4.6-6.2); White Blood Count 6.3 K/mm3 (4.4-11.0)
[2024-07-19 16:40] LABS: AST(SGOT) 19 U/L (15-37); Alanine Aminotransfer ALT/SGPT 17 U/L (16-61); Albumin, Serum 3.5 g/dL (3.2-5.0); Alkaline Phosphatase 78 U/L (45-117); Anion Gap 6 (5-15); BUN 26 mg/dL (7-18); BUN/Creat Ratio 23.6 RATIO (10-20); Calcium,Total 8.8 mg/dL (8.5-10.1); Chloride 109 mmol/L (98-107); Cholesterol 131 mg/dL (200); EST Glomerular Filtration Rate 68 mL/min (>60); Est Glom Filt Rate - Afr Amer 82 mL/min (>60); Globulin 3.6 g/dL (2.2-4.2); Glucose 107 mg/dL (74-106); High Density Lipoprotein 46 mg/dL; Protein, Total 7.1 g/dL (6.4-8.2); Sodium Level 139 mmol/L (136-145); Triglycerides 131 mg/dL; Very Low Density Lipoprotein 26 mg/dL (5-40)
[2024-07-19 21:07] LABS: Vitamin D,25 Hydroxy 21.8 ng/mL
== END | disposition home or self-care (01) ==
LOC: POLAB3 15:43
PROVIDERS: PCP Family Medicine Geriatric Medicine; Visit Provider Family Medicine Geriatric Medicine
DX: I10 Essential (primary) hypertension (principal); E55.9 Vitamin D deficiency, unspecified; E78.5 Hyperlipidemia, unspecified
CPT/HCPCS: 36415; 80053; 80061; 82306; 84443; 85025

== ENCOUNTER → 2024-07-27 | Outpatient (CLI) | payer MEDICARE, SELFPAY | END | disposition home or self-care (01) | LOC: PSN 09:04 | PROVIDERS: PCP Family Medicine Geriatric Medicine; Referring Provider Family Medicine Geriatric Medicine; Visit Provider Family Medicine Geriatric Medicine | DX: R68.83 Chills (without fever) (principal) | CPT/HCPCS: 87631 ==

== ENCOUNTER 2025-02-03 14:27 | Inpatient (IN) | payer MEDICARE, SELFPAY ==
[2025-02-03] VITALS (18 sets, daily range): BP systolic 127–166; BP diastolic 87–119; PULSE 78–96; RESP 16–28; TEMP 36.8; O2SAT 94–100; BMI 21.4; BMI 21.2
--- NOTE | 2025-02-03 15:14 | ED.VIS.CHEST ---
HPI History of Present Illness Chief Complaint: Chest Pain Informant: patient Onset/Context/Timing Onset: Yesterday Activity at onset: sudden and rest Timing: Intermittent Quality: Positive for Sharp Location: Left Chest Worsened By: Nothing Relieved By: Nothing Associated Symptoms: Positive for Nausea, Vomiting, Cough, Lightheadedness and Acid Reflux; Negative for Diaphoresis, Dyspnea, Fever or Palpitations Narrative Narrative: Patient presents with chest pain that began yesterday. Patient states it came on while he was at rest. Patient states it has been intermittent. Patient describes it as sharp. Patient states it is over the left lower chest. Patient states nothing makes it better and nothing makes it worse. Patient admits to some nausea and vomiting. Patient also admits to a cough and some lightheadedness. Patient denies any fevers or chills. Patient denies any shortness of breath. Patient admits to some acid reflux. CVD Risk Factors: Positive for Hypertension and Family History 1' </=55; Negative for Diabetes, Hypercholesterolemia or Smoking PE Risk Factors: Negative for Recent Travel/Surgery, Recent Immobilization, Prior DVT or PE, Cancer or OCP + Smoking + >/=35 PFSH PFSH Medical History Interstitial pulmonary fibrosis Tremor Home Medications ?Medication ?Instructions ?Recorded ?Last Taken ?Type propranolol 10 mg tablet 10 mg PO BID #60 TABLETS 02/07/15 06/01/15 07:00 Rx meclizine 25 mg tablet 25 mg PO DAILY PRN PRN vertigo 07/28/24 Unknown History Allergy/AdvReac Type Severity Reaction Status Date / Time No Known Allergies Allergy Verified 02/03/25 14:30 Family History Son Cancer CVA (cerebral vascular accident) Surgical History History of tonsillectomy Social History Smoking Status: Former smoker how long ago did patient quit smokin years ago ROS ROS ED Constitutional Constitutional ED: Denies chills or fever(s) Eyes Eyes: Denies blurry vision or change in vision ENT ENT ED: Reports rhinorrhea and sore throat Cardiovascular Cardiovascular: Reports chest pain; Denies palpitations Respiratory/Chest Respiratory/Chest: Reports cough; Denies dyspnea Gastrointestinal Gastrointestinal: Reports nausea and vomiting Genitourinary Genitourinary ED: Denies dysuria or hematuria Musculoskeletal Musculoskeletal: Denies back pain or neck pain Integumentary Denies abscess or rash Neurologic Neurologic: Denies headache(s) or weakness Allergic/Immunologic Allergic/Immunologic ED: Denies mouth swelling or urticaria EXAM Physical Exam Const Vital Signs: 02/03/25 14:30 02/03/25 14:34 02/03/25 14:45 Temperature 98.2 F Temperature Source Oral Pulse Rate 94 96 89 Respiratory Rate 20 H 22 H 25 H Blood Pressure 151/119 H Blood Pressure Mean 129 Pulse Ox 98 99 Oxygen Delivery Method Room Air 02/03/25 15:00 02/03/25 15:15 02/03/25 15:30 Temperature Temperature Source Pulse Rate 85 87 84 Respiratory Rate 28 H 21 H 17 Blood Pressure 136/93 H Blood Pressure Mean 107 Pulse Ox 98 97 98 Oxygen Delivery Method 02/03/25 15:45 02/03/25 15:58 02/03/25 15:59 Temperature Temperature Source Pulse Rate 85 85 89 Respiratory Rate 25 H 28 H Blood Pressure 132/89 H 132/89 H Blood Pressure Mean 103 Pulse Ox 99 97 Oxygen Delivery Method 02/03/25 15:59 02/03/25 15:59 02/03/25 16:00 Temperature Temperature Source Pulse Rate 91 83 Respiratory Rate 18 20 H Blood Pressure 132/89 H 166/105 H Blood Pressure Mean 103 121 Pulse Ox 100 100 99 Oxygen Delivery Method Room Air 02/03/25 16:15 02/03/25 16:30 02/03/25 16:45 Temperature Temperature Source Pulse Rate 89 84 78 Respiratory Rate 24 H 26 H 25 H Blood Pressure 129/98 H 133/90 H 136/93 H Blood Pressure Mean 106 102 106 Pulse Ox 95 95 96 Oxygen Delivery Method 02/03/25 17:00 02/03/25 17:53 Temperature Temperature Source Pulse Rate 79 83 Respiratory Rate 24 H 16 Blood Pressure 142/100 H 132/97 H Blood Pressure Mean 114 108 Pulse Ox 97 99 Oxygen Delivery Method Room Air Positive well nourished and well developed General Appearance ED: well developed and NAD HEENT Reports moist mucous membranes normocephalic and atraumatic Neck supple and no JVD Chest Wall inspection of chest normal Chest: tenderness pectoral muscle Resp normal respiratory effort and clear to auscultation bilaterally Cardio regular rate and regular rhythm GI soft to palpation and non-distended GI Narrative: There is some mild epigastric tenderness. There is no rebound or guarding noted. Extremity normal to inspection General Extremety ED: Negative for edema or tenderness General Extremity: Negative for edema Neuro oriented x3, CN's II-XII intact bilaterally and no sensory deficits noted Sensorium / Orientation: awake and alert Motor Exam: strength 5/5 throughout Psych mental status grossly normal Heart Score History: Slightly/Non-Suspicious ECG: Nonspecific Repolarization Age: >/= 65 years Risk Factors: 1 or 2 Risk Factors Troponin: </= Normal Limit Score: 4 MDM MDM MDM Narrative Medical decision making narrative: Differential diagnosis includes cardiac dysrhythmia, cardiac ischemia, pneumonia, bronchitis, gastroesophageal reflux disease, pancreatitis, musculoskeletal pain, and anxiety. EKG will be obtained to assess for cardiac dysrhythmia or cardiac ischemia. Chest x-ray will be obtained to assess for pneumonia. CBC will be obtained to assess for leukocytosis and anemia. Comprehensive metabolic profile will be obtained to assess for hepatic function, renal function, and electrolyte abnormality. Lipase will be obtained to assess for pancreatitis. High-sensitivity troponin will be obtained to assess for cardiac ischemia. 2-hour repeat high-sensitivity troponin will be obtained to assess for ongoing cardiac ischemia. Lab Data Attestation: I reviewed the patient's lab results. Lab results narrative: CBC was reviewed. There is a mild anemia with a hemoglobin of 12.8 and hematocrit of 39.3. Comprehensive metabolic profile was reviewed and was essentially within normal limits. Lipase was reviewed and was normal at 24. High-sensitivity troponin was reviewed and was normal at 15. 2-hour repeat high-sensitivity troponin was reviewed and was normal at 16. Labs: Laboratory Results - last 24 hr 02/03/25 02/03/25 14:30 16:57 WBC 7.8 RBC 3.98 L Hgb 12.8 L Hct 39.3 L MCV 98.7 H MCH 32.2 H MCHC 32.6 RDW Std Deviation 49.3 H RDW Coeff of Roe 13.5 Plt Count 167 MPV 10.0 Immature Gran % (Auto) 0.400 Neut % (Auto) 67.2 Lymph % (Auto) 20.8 Craig % (Auto) 9.0 Eos % (Auto) 2.1 Baso % (Auto) 0.5 Absolute Neuts (auto) 5.2 Absolute Lymphs (auto) 1.62 Nucleated RBC % 0 Sodium 138 Potassium 4.2 Chloride 103 Carbon Dioxide 21.7 Anion Gap 13 BUN 22 H Creatinine 0.88 Estim Creat Clear Calc 62.24 Est GFR (MDRD) Non-Af 84 BUN/Creatinine Ratio 24.7 H Glucose 114 H Calcium 9.2 Total Bilirubin 0.59 AST 21 ALT 12 Alkaline Phosphatase 102 Troponin T High Sens 15 Troponin T Hi Sens 2 Hr 16 Total Protein 7.3 Albumin 4.1 Globulin 3.3 Albumin/Globulin Ratio 1.3 Lipase 24 Radiography Diagnostic Testing: Clinical Impression(s) from Imaging Studies Chest X-Ray 02/03/25 15:40 IMPRESSION: Evaluation is limited by lack of a prior comparison study. Increased lung densities are seen bilaterally, predominantly in the mid to lower lung zones, [id number]-left. Differential diagnosis includes chronic change and Pneumonitis, the latter of greater concern in the right. No pleural effusion or pneumothorax is seen. The cardiomediastinal silhouette is remarkable for a partially calcified aorta. No evidence of cardiomegaly. No acute osseous process is seen. Reading Location: [address] Portable 1 view chest x-ray was obtained. On my independent interpretation, lung alba show chronic changes. There is normal cardiac silhouette. Bony thorax is normal. There is no acute process noted. Radiologist also interpreted the x-ray and agrees. EKG Initial EKG: Attestation: I personally reviewed and interpreted this EKG as follows: Interpretation: Sinus Rhythm (99), RBBB and Non-Specific ST Changes Comments: EKG was obtained. On my independent interpretation, showed sinus rhythm with a rate of 99. GA interval was within normal limits. QRS interval was slightly prolonged at 164 ms. QTc interval is normal at 451 ms. There is right axis deviation at 125. There is a left posterior fascicular block. There is right bundle branch block pattern noted. There are nonspecific ST-T wave changes noted. This was unchanged compared to previous EKG dated 07/18/2021. Prior EKG tracings: available for review Prior: Unchanged Management Discussion w/another healthcare provider: Hospitalist Treatment and Re-Evaluation :: Patient was given aspirin and sublingual nitroglycerin. Patient was feeling better on reevaluation. Patient was advised of his findings. Patient has a HEART score of 4. Patient has not had a stress test since 2016. Because of this, I recommended admission to the hospital for further evaluation. Patient and family understand and are agreeable with the plan. Case was discussed with the hospitalist. He will admit the patient to his service. Discharge Plan Triage Chief Complaint: Chest Pain ED Provider: Luis Alas Dx/Rx/DC Orders Clinical Impression: Chest pain, Hypertension, Interstitial pulmonary fibrosis Prescriptions: No Action meclizine 25 mg tablet 25 mg PO DAILY PRN PRN (Reason: vertigo) propranolol 10 MG tablet 10 mg PO BID Qty: 60 6RF Patient Comments: heart/TREMORS Primary Care Provider: Laurent York Chi Referrals: Laurent York Chi, MD [Primary Care Provider] - Print Language: Uruguayan Disposition Disposition: Acute Care Hospital [facility]
--- NOTE | 2025-02-03 15:24 | EKG12_ITS ---
Test Reason : CP Blood Pressure : */* mmHG Vent. Rate : 87 BPM Atrial Rate : * BPM P-R Int : * ms QRS Dur : 168 ms QT Int : 418 ms P-R-T Axes : * 125 -22 degrees QTcB Int : 502 ms Atrial fibrillation Right bundle branch block , plus right ventricular hypertrophy Left posterior fascicular block Bifascicular block Abnormal ECG When compared with ECG of 03-Feb-2025 21:12, MANUAL COMPARISON REQUIRED DATA IS UNCONFIRMED Confirmed by REDDY MACKENZIE, ALTON ([id number]), graphic editor TAMMY FABIAN ([id number]) on 02/09/2025 7:28:19 AM Referred By: DEQUAN Confirmed By: ALTON BLAKELY MD
[2025-02-03 15:39] LABS: Absolute Lymphocyte Count 1.62 X10^3/uL (0.83-4.51); Absolute Neutrophil Count 5.2 X10^3/uL (2.0-7.7); Basophil# 0.04 X10^3/uL; Basophil% 0.5 % (0-1); Eosinophil# 0.16 X10^3/uL; Eosinophils% 2.1 % (0-5); Hematocrit 39.3 % (40-54); Hemoglobin 12.8 g/dL (13.0-16.5); Lymphocyte # 1.62 X10^3/ul (0.83-4.51); Lymphocyte % 20.8 % (19-41); Mean Corp Hgb Conc 32.6 g/dL (32-36); Mean Corpuscular Hgb 32.2 pg (27.0-32.0); Mean Corpuscular Volume 98.7 fL (80-94); NRBC Flagged by Analyzer 0 % (0-5); Neutrophil # 5.24 X10^3/uL (2.7-7.7); Neutrophil % 67.2 % (47-70); Platelet Count 167 K/mm3 (150-450); RBC Distribution Width CV 13.5 % (11.6-14.6); RBC Distribution Width SD 49.3 fl (35.1-43.9); Red Blood Count 3.98 M/mm3 (4.6-6.2); White Blood Count 7.8 K/mm3 (4.4-11.0)
--- NOTE | 2025-02-03 15:40 | RAD_ITS ---
PROCEDURE: CHEST 1 VIEW (PORTABLE) 02/03/2025 REASON FOR EXAM: CHEST PAIN TECHNIQUE: Frontal view of the chest. COMPARISON: None provided. RAD/Chest 1 View (Portable) IMPRESSION: Evaluation is limited by lack of a prior comparison study. Increased lung densities are seen bilaterally, predominantly in the mid to lowe r lung zones, [id number]-left. Differential diagnosis includes chronic change and Pneumonitis, the latter of g reater concern in the right. No pleural effusion or pneumothorax is seen. The cardiomediastinal silhouette is remarkable for a partially calcified aorta. No evidence of cardiomegaly. No acute osseous process is seen. Reading Location: [address]
[2025-02-03] MEDS: Aspirin 81 MG TAB.CHEW 324 MG PO (15:58)
[2025-02-03] MEDS: Nitroglycerin SL (ED/IMG/CATH) 0.4 MG TABLET SL (15:59)
[2025-02-03 16:05] LABS: ALB/GLOB Ratio 1.3 RATIO (0.9-2.4); AST(SGOT) 21 U/L (<=37); Alanine Aminotransfer ALT/SGPT 12 U/L (<=46); Albumin, Serum 4.1 g/dL (3.4-4.8); Alkaline Phosphatase 102 U/L (40-129); Anion Gap 13 (5-15); BUN 22 mg/dL (4-19); BUN/Creat Ratio 24.7 RATIO (10-20); Calcium,Total 9.2 mg/dL (7.6-11.0); Carbon Dioxide 21.7 mmol/L (21.0-32.0); Chloride 103 mmol/L (98-108); Creatinine, Serum 0.88 mg/dL (0.70-1.20); EST Glomerular Filtration Rate 84 (>60); Estimated Creatinine Clearance 62.24 ml/min (50-250); Globulin 3.3 g/dL (2.2-4.2); Glucose 114 mg/dL (70-99); Lipase 24 U/L (13-75); Potassium 4.2 mmol/L (3.3-5.1); Protein, Total 7.3 g/dL (5.9-8.4); Sodium Level 138 mmol/L (133-145); Total Bilirubin 0.59 mg/dL (0.00-1.30)
[2025-02-03 16:25] LABS: Troponin T High Sensitivity 15 ng/L (<=22)
[2025-02-03 17:28] LABS: Troponin T High Sens 2 HR 16 ng/L (<=22)
--- NOTE | 2025-02-03 18:30 | HP.PCM.HOS_ITS ---
[facility] - General General Date of Service: 02/03/25 Chief Complaint: chest pain HPI Narrative ELMER RAMIREZ, is a 84 M with pmhx rheumatic fever with residual heart murmur, pulmonary fibrosis and benign essential tremor who presents to the ER with chest pain. This began yesterday AM. He describes sharp pain in the mid sternal area and midepigastric region. This is worse with deep breathing. He had some SOB and chest tightness with it. He continues to have the chest pain currently if he takes a deep breath. Yesterday he also had some nausea and vomiting. He notes that the vomit was brownish. He only threw up once. He has no diarrhea. He has some abdominal discomfort which also occurs with eating. He came to the ER and had negative troponin x 2, EKG with RBBB, negatve lipase. He is to be kept overnight for chest pain workup. [facility] Medical History (Updated 02/03/25 @ 18:35 by MONROE Pelletier) Rheumatic fever Interstitial pulmonary fibrosis Tremor Home Medications ?Medication ?Instructions ?Recorded ?Last Taken ?Type propranolol 10 mg tablet 10 mg PO BID #60 TABLETS 06/01/15 07:00 Rx meclizine 25 mg tablet 25 mg PO DAILY PRN PRN verti go 07/28/24 Unknown History Allergy/AdvReac Type Severity Reaction Status Date / Time No Known Allergies Allergy Verified 02/03/25 14:30 Family History Son Cancer CVA (cerebral vascular accident) Father Heart disease Surgical History History of tonsillectomy Social History Smoking Status: Former smoker how long ago did patient quit smokin years ago ROS Constitutional Constitutional: Denies chills, fatigue or fever(s) ENT HEENT: Denies nasal congestion, nasal discharge or sore throat Cardiovascular Cardiovascular: Reports chest pain and lightheadedness; Denies edema, rapid heart rate or syncope Respiratory/Chest Respiratory/Chest: Reports cough and dyspnea Gastrointestinal Gastrointestinal: Reports abdominal pain, nausea and vomiting; Denies diarrhea Musculoskeletal Musculoskeletal: Denies arthralgias Psychiatric Psychiatric: Denies anxiety Endocrine Endocrinology: Denies change in body appearance Hematologic/Lymphatic Hematologic/Lymphatic: Reports anemia Allergic/Immunologic Allergic/Immunologic: Denies rhinitis Vital Signs Vital Signs Vital Signs: 02/03/25 14:30 02/03/25 14:34 02/03/25 14:45 Temperature 98.2 F Temperature Source Oral Pulse Rate 94 96 89 Respiratory Rate 20 H 22 H 25 H Blood Pressure 151/119 H Blood Pressure Mean 129 Pulse Ox 98 99 Oxygen Delivery Method Room Air 02/03/25 15:00 02/03/25 15:15 02/03/25 15:30 Temperature Temperature Source Pulse Rate 85 87 84 Respiratory Rate 28 H 21 H 17 Blood Pressure 136/93 H Blood Pressure Mean 107 Pulse Ox 98 97 98 Oxygen Delivery Method 02/03/25 15:45 02/03/25 15:58 02/03/25 15:59 Temperature Temperature Source Pulse Rate 85 85 89 Respiratory Rate 25 H 28 H Blood Pressure 132/89 H 132/89 H Blood Pressure Mean 103 Pulse Ox 99 97 Oxygen Delivery Method 02/03/25 15:59 02/03/25 15:59 02/03/25 16:00 Temperature Temperature Source Pulse Rate 91 83 Respiratory Rate 18 20 H Blood Pressure 132/89 H 166/105 H Blood Pressure Mean 103 121 Pulse Ox 100 100 99 Oxygen Delivery Method Room Air 02/03/25 16:15 02/03/25 16:30 02/03/25 16:45 Temperature Temperature Source Pulse Rate 89 84 78 Respiratory Rate 24 H 26 H 25 H Blood Pressure 129/98 H 133/90 H 136/93 H Blood Pressure Mean 106 102 106 Pulse Ox 95 95 96 Oxygen Delivery Method 02/03/25 17:00 02/03/25 17:53 Temperature Temperature Source Pulse Rate 79 83 Respiratory Rate 24 H 16 Blood Pressure 142/100 H 132/97 H Blood Pressure Mean 114 108 Pulse Ox 97 99 Oxygen Delivery Method Room Air Weight Weight: 71.7 kg Body Mass Index (BMI) 21.4 Physical Exam Const alert and oriented x3 General Appearance: cooperative HEENT normocephalic and head/scalp atraumatic Eyes PERRL Neck no lymphadenopathy Resp normal respiratory effort Resp Narrative: diminished Cardio regular rate and regular rhythm Cardio Narrative: 3/6 systolic murmur best heard at RSB 2nd ICS GI normal to inspection, nondistended, normoactive bowel sounds and soft to palpation Palpation: tender epigastric, LLQ, RLQ, LUQ and RUQ Extremity normal to inspection Skin Skin Narrative: no wounds rashes or lesions noted Neuro oriented x3 Psych affect normal Results Lab / Micro Data 02/03/25 14:30 02/03/25 14:30 Labs: Laboratory Results - last 24 hr 02/03/25 14:30: WBC 7.8, RBC 3.98 L, Hgb 12.8 L, Hct 39.3 L, MCV 98.7 H, MCH 32.2 H, MCHC 32.6, RDW Std Deviation 49.3 H, RDW Coeff of Roe 13.5, Plt Count 167, MPV 10.0, Immature Gran % (Auto) 0.400, Neut % (Auto) 67.2, Lymph % (Auto) 20.8, Creek % (Auto) 9.0, Eos % (Auto) 2.1, Baso % (Auto) 0.5, Absolute Neuts (auto) 5.2, Absolute Lymphs (auto) 1.62, Nucleated RBC % 0, Sodium 138, Potassium 4.2, Chloride 103, Carbon Dioxide 21.7, Anion Gap 13, BUN 22 H, Creatinine 0.88, Estim Creat Clear Calc 62.24, Est GFR (MDRD) Non-Af 84, B UN/Creatinine Ratio 24.7 H, Glucose 114 H, Calcium 9.2, Total Bilirubin 0.59, AST 21, ALT 12, Alkaline Phosphatase 102, Troponin T High Sens 15, Total Protein 7.3, Albumin 4.1, Globulin 3.3, Albumin/Globulin Ratio 1.3, Lipase 24 02/03/25 16:57: Troponin T Hi Sens 2 Hr 16 Imaging Radiology Impression Chest X-Ray 02/03/25 15:40 IMPRESSION: Evaluation is limited by lack of a prior comparison study. Increased lung densities are seen bilaterally, predominantly in the mid to lower lung zones, [id number]-left. Differential diagnosis includes chronic change and Pneumonitis, the latter of greater concern in the right. No pleural effusion or pneumothorax is seen. The cardiomediastinal silhouette is remarkable for a partially calcified aorta. No evidence of cardiomegaly. No acute osseous process is seen. Reading Location: [address] Assessment & Plan Assessment/Plan (1) Chest pain: PLAN: 1. Chest pain - began yesterday am. sharp pain worse with deep breathing. some associated SOB, chest tightness, lightheadedness.last night some nausea and vomiting. No hx of heart disease. troponin negative x 2. Will repeat. EKG RBBB CXR possible chronic change and pneumonitis, hx of pulmonary fibrosis. SpO2 99% RA Obtain stress test in AM given hx of heart murmur and loud murmur on exam will obtain Echo as well. 2. coffee ground emesis - x 1 last night. with abdominal pain and tenderness. Hgb 12.8. obtain CT abdomen with and without contrast. Consult GI. Start protonix. he also has a hx of hiatal hernia 3. Pulmonary fibrosis - not on any medications for this 4. Hx benign essential tremor - on propranolol DVT ppx: hold for coffee ground emesis This patient was seen by Jose Cain PA-C under the supervision of Doctor Unger.
[2025-02-03 19:24] LABS: Troponin T High Sens 4 HR 16 ng/L (<=22)
--- NOTE | 2025-02-03 20:12 | CON.PCM.GI_ITS ---
HPI Consult Data Date of Consult: 02/04/25 HPI Narrative Reason for Consultation: Coffee-ground emesis HPI Narrative: ELMER RAMIREZ, is a 84 M who presents with chest pain that began yesterday. Patient states it came on while he was at rest. Patient states it has been intermittent. Patient describes it as sharp. Patient states it is over the left lower chest. Patient states nothing makes it better and nothing makes it worse. Patient admits to some nausea and vomiting. While in the ED he had multiple episodes of coffee-ground emesis. 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 He only takes meclizine and propranolol. His hemoglobin discovered to be 12.8 in the ED and it was 14.2. [facility] Medical History Former smoker Interstitial pulmonary fibrosis Tremor Rheumatic fever Home Medications ?Medication ?Instructions ?Recorded ?Last Taken ?Type propranolol 10 mg tablet 10 mg PO BID #60 TABLETS 06/01/15 07:00 Rx meclizine 25 mg tablet 25 mg PO DAILY PRN PRN verti go 07/28/24 Unknown History Allergy/AdvReac Type Severity Reaction Status Date / Time No Known Allergies Allergy Verified 02/03/25 14:30 Family History Son Cancer CVA (cerebral vascular accident) Father Heart disease Surgical History History of tonsillectomy Social History Smoking Status: Former smoker how long ago did patient quit smokin years ago ROS Constitutional Constitutional: Denies fatigue, fever(s), poor appetite, weight gain or weight loss Gastrointestinal Gastrointestinal: Denies belching, bloating, change in bowel habits, change in stool character, chewing difficulty, coffee ground emesis, constipation, cramping, diarrhea, dyspepsia, dysphagia, early satiety, excessive flatus, fecal incontinence, heartburn, hematemesis, hematochezia, hemorrhoids, loose stools, melena, nausea, odynophagia, rectal bleeding, tenesmus, vomiting or weight changes Physical Exam Const alert, oriented x3, no apparent distress and healthy appearing General Appearance: cooperative GI normal to inspection, nondistended, normoactive bowel sounds, soft to palpation, non-tender and non-distended Percussion: normal to percussion Rectal Exam: deferred Lab / Micro Data 02/04/25 06:41 02/04/25 06:41 Labs: Laboratory Results - last 24 hr 02/03/25 14:30: WBC 7.8, RBC 3.98 L, Hgb 12.8 L, Hct 39.3 L, MCV 98.7 H, MCH 32.2 H, MCHC 32.6, RDW Std Deviation 49.3 H, RDW Coeff of Roe 13.5, Plt Count 167, MPV 10.0, Immature Gran % (Auto) 0.400, Neut % (Auto) 67.2, Lymph % (Auto) 20.8, Winston % (Auto) 9.0, Eos % (Auto) 2.1, Baso % (Auto) 0.5, Absolute Neuts (auto) 5.2, Absolute Lymphs (auto) 1.62, Nucleated RBC % 0, Sodium 138, Potassium 4.2, Chloride 103, Carbon Dioxide 21.7, Anion Gap 13, BUN 22 H, Creatinine 0.88, Estim Creat Clear Calc 62.24, Est GFR (MDRD) Non-Af 84, B UN/Creatinine Ratio 24.7 H, Glucose 114 H, Calcium 9.2, Total Bilirubin 0.59, AST 21, ALT 12, Alkaline Phosphatase 102, Troponin T High Sens 15, Total Protein 7.3, Albumin 4.1, Globulin 3.3, Albumin/Globulin Ratio 1.3, Lipase 24 02/03/25 16:57: Troponin T Hi Sens 2 Hr 16 02/03/25 19:00: Troponin T Hi Sens 4Hr 16 Imaging Radiology Impression Chest X-Ray 02/03/25 15:40 IMPRESSION: Evaluation is limited by lack of a prior comparison study. Increased lung densities are seen bilaterally, predominantly in the mid to lower lung zones, [id number]-left. Differential diagnosis includes chronic change and Pneumonitis, the latter of greater concern in the right. No pleural effusion or pneumothorax is seen. The cardiomediastinal silhouette is remarkable for a partially calcified aorta. No evidence of cardiomegaly. No acute osseous process is seen. Reading Location: [address] Assessment & Plan Assessment/Plan (1) Coffee ground emesis: PLAN: 84-year-old gentleman with COPD not on home oxygen presents with chest pain. Troponins have been negative x 2. He also discovered to have coffee- ground emesis. Differential diagnosis does include Leah-Howell tear, or esophagitis, worsening hiatal hernia, peptic ulcer disease. He should undergo an upper endoscopy to evaluate his upper GI tract. Recommend to continue Protonix therapy. N.p.o. past midnight. Charges/Coding Visit Charges Inpatient E&M: 03230 Init Hosp L3
--- NOTE | 2025-02-03 20:58 | ECHOD_ITS ---
Reason For Study Reason For Study: Chest pain Procedure This was a 2D Doppler, Color Flow transthoracic echocardiogram. Exam performed in department. Left Ventricle Normal left ventricle. Concentric left ventricular hypertrophy. Left ventricular systolic function is normal. The left ventricular ejection fraction is 55 %. Right Ventricle Normal right ventricle. Normal systolic function. Atria Normal left atrium. Normal right atrium. Mitral Valve No mitral valve stenosis Trivial mitral valve regurgitation Moderate mitral annular calcification. Tricuspid Valve Mild tricuspid valve insufficiency. Aortic Valve Aortic valve is heavily calcified Severe aortic valve stenosis PA 0.9 cm??. Mean/peak gradient 29/48 mmHg. Mild- Moderate (1-2+) aortic valve insufficiency. Pulmonic Valve Trivial pulmonic valve insufficiency. Pericardium/Pleural No pericardial effusion. MMode/2D Measurements & Calculations LVIDd: 3.2 cm IVSd: 1.8 cm LVOT diam: 2.0 cm LVIDs: 2.4 cm LVPWd: 1.5 cm LVOT area: 3.3 cm2 RVDd: 3.7 cm FS: 23.6 % Ao root diam: 3.3 cm LAV(MOD-bp): 84.3 ml LVAd ap4: 24.7 cm2 LAV(MOD-bp) Indexed: 43.9 ml/m2 LVLd ap4: 7.8 cm LAV(MOD-sp2): 62.1 ml EDV(MOD-sp4): 66.9 ml LAV(MOD-sp4): 112.3 ml EDV(sp4-el): 66.5 ml LVAs ap4: 13.5 cm2 LVLs ap4: 7.2 cm ESV(MOD-sp4): 22.2 ml ESV(sp4-el): 21.5 ml EF(MOD-sp4): 66.8 % EF(sp4-el): 67.6 % SV(MOD-sp4): 44.7 ml SV(MOD-sp2): 35.5 ml LVAd ap2: 23.6 cm2 LVLd ap2: 8.2 cm SI(MOD-sp4): 23.3 ml/m2 SI(MOD-sp2): 18.5 ml/m2 EDV(MOD-sp2): 55.9 ml EDV(sp2-el): 58.2 ml LVAs ap2: 12.9 cm2 LVLs ap2: 7.5 cm ESV(MOD-sp2): 20.4 ml ESV(sp2-el): 19.0 ml EF(MOD-sp2): 63.5 % SV(sp4-el): 44.9 ml LA A4 area: 29.7 cm2 LA dimension(2D): 4.1 cm RA A4 area: 24.6 cm2 Doppler Measurements & Calculations MV E max malcolm: 120.3 cm/sec Ao V2 max: 346.6 cm/sec AI max malcolm: 412.6 cm/sec Ao max P.3 mmHg AI max P.1 mmHg Ao V2 mean: 255.4 cm/sec AI dec slope: 344.4 cm/sec2 Ao mean P.0 mmHg AI P1/2t: 350.9 msec Ao V2 VTI: 58.9 cm AV (velocity ratio): 0.28 PA(I,D): 0.93 cm2 PA(V,D): 0.90 cm2 LV V1 max: 95.3 cm/sec SV(LVOT): 54.6 ml PA V2 max: 99.5 cm/sec LV V1 max P.7 mmHg LV V1 mean P.0 mmHg LV V1 mean: 66.2 cm/sec LV V1 VTI: 16.7 cm TR max malcolm: 265.1 cm/sec TR max P.1 mmHg ECHO/Echo Complete Interpretation Summary Concentric left ventricular hypertrophy. Left ventricular systolic function is normal. The left ventricular ejection fraction is 55 %. No mitral valve stenosis Trivial mitral valve regurgitation Moderate mitral annular calcification Mild tricuspid valve insufficiency. Aortic valve is heavily calcified Severe aortic valve stenosis PA 0.9 cm??. Mean/peak gradient 29/48 mmHg. Mild-Moderate (1-2+) aortic valve insufficiency. Ordering Physician: Luis Unger Referring Physician: Laurent York Chi Performed By: Irina Jamison RDCS
--- NOTE | 2025-02-03 20:58 | EKG12_ITS ---
Test Reason : CP ADMIT Blood Pressure : */* mmHG Vent. Rate : 93 BPM Atrial Rate : * BPM P-R Int : * ms QRS Dur : 170 ms QT Int : 406 ms P-R-T Axes : * 119 18 degrees QTcB Int : 504 ms Atrial fibrillation Right bundle branch block Left posterior fascicular block Bifascicular block Abnormal ECG When compared with ECG of 03-Feb-2025 14:29, MANUAL COMPARISON REQUIRED DATA IS UNCONFIRMED Confirmed by REDDY MACKENZIE, ALTON ([id number]), editor sound TAMMY FABIAN ([id number]) on 02/09/2025 7:28:34 AM Referred By: DEQUAN Confirmed By: ALTON BLAKELY MD
--- OUTSIDE RECORDS SUMMARY | 2025-02-03 21:22 | XMS RPT_ITS | CCD ---
Author Organization [facility] Care Team Providers Care Foster Parent Name Role Phone Jaylen, Dr. Laurent Irene Primary Care Provider Jaylen, Dr. Laurent Irene Referring Provider Jaylen, Dr. Laurent Irene Other Provider Dr. Tee Arizmendi Attending Provider Dr. Steffen Oseguera Attending Provider [phone] Jaylen, Dr. Laurent Irene Primary Care Provider Jaylen, Dr. Laurent Irene Referring Provider VIRI Cooney Attending Provider Dr. Awais Hale Attending Provider Dr. Laurent [place] Chi Primary Care Provider Jaylen, Dr. Laurent Irene Referring Provider Jaylen, Dr. Laurent Irene Primary Care Provider Jaylen, Dr. Laurent Irene Referring Provider VIRI Cooney Attending Provider Dr. Awais Hale Attending Provider VIRI Rosa NP Attending Provider [phone] Jaylen, Laurent Chi Primary Care Unavailable Jaylen, Laurent Chi Attending Unavailable Jaylen, Laurent Chi Primary Care Unavailable Jaylen, Laurent Chi Referring Unavailable Jaylen, Laurent Chi Attending Unavailable Ed Callahan Attending Unavailable Jaylen, Laurent Chi Primary Care Unavailable Jaylen, Laurent Chi Primary Care Unavailable Arnulfo Todd Attending Unavailable Jaylen, Laurent Chi Primary Care Unavailable Jaylen, Laurent Chi Referring Unavailable Kayla Rosa NP Attending Unavailable Jaylen, Laurent Chi Primary Care Unavailable Jaylen, Laurent Chi Referring Unavailable Awais Hale Attending Unavailable Laurent [place] Chi Primary Care Unavailable Laurent [place] Chi Referring Unavailable Laurent [place] Chi Attending Unavailable Jaylen MACKENZIE, Dr. Laurent Irene Primary Care Provider [phone] Dr. Luis Alas DO Emergency Provider Dr. Luis Unger DO Admit Provider Dr. Luis Unger DO Attending Provider [phone] Jose Childs Attending Provider Medications Current Medications Medication Drug Class(es) Dates Sig (Normalized) Sig (Original) meclizine hydrochloride 25 mg oral tablet (10 sources) Antiemetic Start: 07-28-2024 take 1 tablet by mouth once daily as needed Meclizine 25 mg tablet Active 25 mg PO DAILY NEEDED as needed for vertigo July 28, 2024 1:00am Start: 07-18-2021 End: 02-05-2023 take 1 tablet by mouth three times daily as needed for dizziness Meclizine 25 mg tablet Discontinued 25 mg PO THREE TIMES A DAY as needed for dizziness July 18, 2021 1:00am February 05, 2023 7:27am propranolol hydrochloride 10 mg oral tablet (18 sources) beta-Adrenergic Lilibeth Start: 02-07-2015 take 1 tablet by mouth twice daily Propranolol 10 MG tablet Active 10 mg PO TWICE A DAY 60 February 07, 2015 12:00am Start: 02-04-2015 End: 02-07-2015 take 1 tablet by mouth once daily Propranolol 10 MG tablet Discontinued 10 mg PO DAILY February 04, 2015 12:00am February 07, 2015 9:50am Completed/Discontinued Medications Medication Drug Class(es) Dates Sig (Normalized) Sig (Original) acetaminophen 325 mg / HYDROcodone bitartrate 5 mg oral tablet (9 sources) Opioid Agonist Start: 11-29-2015 End: 02-05-2023 Hydrocodone-Acetami nophen 1 TABLET tablet Discontinued 1 {tbl} PO EVERY 4 HOURS NEEDED as needed for Pain November 29, 2015 12:00am February 05, 2023 7:26am Start: 11-29-2015 End: 02-05-2023 take 1 tablet by mouth every four hours as needed Hydrocodone-Acetaminophen Discontinued 1 TABLET PO EVERY 4 HOURS NEEDED 8 November 28, 2015 11:00pm February 05, 2023 6:26am [id number] 200 actuat albuterol 0.09 mg/actuat metered dose inhaler (4 sources) beta2-Adrenergic Agonist Start: 04-26-2023 End: 01-16-2024 Albuterol Sulfate 90 mcg/actuation HFA aerosol inhaler Discontinued 2 NMA INHALATION EVERY 6 HOURS as needed for shortness of breath or wheezing 8.April 26, 2023 12:00am January 16, 2024 10:37am Start: 04-26-2023 take 1 puff(s) by in halation every six hours Albuterol Sulfate Active 2 PUFF INHALATION EVERY 6 HOURS 8.April 25, 2023 11:00pm amoxicillin 500 mg oral tablet (4 sources) Penicillin-class Antibacterial Start: 04-26-2023 End: 05-22-2023 take 1 tablet by mouth three times daily Amoxicillin 500 mg tablet Discontinued 500 mg PO THREE TIMES A DAY April 26, 2023 12:00am May 22, 2023 9:44am amoxicillin 875 mg / clavulanate 125 mg oral tablet (1 source) Penicillin-class Antibacterial Start: 06-05-2024 End: 07-28-2024 take 1 tablet by mouth every twelve hours Amoxicillin-Pot Clavulanate 875-125 mg tablet Discontinued 875 mg PO Q12H June 05, 2024 12:00am July 28, 2024 11:35am aspirin 81 mg chewable tablet (9 sources) Platelet Aggregation Inhibitor, Nonsteroidal Anti-inflammatory Drug Start: 09-02-2014 End: 09-22-2014 take 1 tablet by mouth once daily Aspirin 81 MG Tab.Chew Discontinued 81 mg PO DAILY@0800 September 02, 2014 1:00am September 22, 2014 8:51am atorvastatin 20 mg oral tablet (9 sources) HMG-CoA Reductase Inhibitor Start: 09-02-2014 End: 02-05-2023 take 1 tablet by mouth once daily Atorvastatin 20 MG tablet Discontinued 20 mg PO DAILY@2200 30 September 02, 2014 1:00am February 05, 2023 7:26am cefadroxil 500 mg oral capsule (9 sources) Cephalosporin Antibacterial Start: 09-02-2014 End: 10-04-2014 take 0.2 capsule by mouth twice daily Cefadroxil 500 MG capsule Discontinued 1000 mg PO TWICE A DAY September 02, 2014 1:00am October 04, 2014 11:01am start date 08/29, recommended 2 wk duration (end date 09/11/13) Start: 09-02-2014 End: 10-04-2014 Cefadroxil Discontinued 1000 MG PO TWICE A DAY September 02, 2014 12:00am October 04, 2014 10:01am start date 08/29, recommended 2 wk duration (end date 09/11/13) ciprofloxacin 250 mg oral tablet (9 sources) Quinolone Antimicrobial Start: 02-07-2015 End: 02-07-2015 take 1 tablet by mouth twice daily Ciprofloxacin Hcl 250 MG tablet Discontinued 250 mg PO TWICE A DAY February 07, 2015 12:00am February 07, 2015 1:49pm lisinopril 10 mg oral tablet (9 sources) Angiotensin Converting Enzyme Inhibitor Start: 09-02-2014 End: 02-05-2023 take 1 tablet by mouth once daily Lisinopril 10 MG tablet Discontinued 10 mg PO DAILY September 02, 2014 1:00am February 05, 2023 7:26am nintedanib 150 mg oral capsule (7 sources) Kinase Inhibitor Start: 05-22-2023 End: 02-03-2025 take 1 capsule by mouth every twelve hours Nintedanib 150 mg capsule Discontinued 150 mg PO Q12H May 10, 2024 12:40pm February 03, 2025 2:38pm ondansetron 4 mg disintegrating oral tablet (9 sources) Serotonin-3 Receptor Antagonist Start: 07-18-2021 End: 02-05-2023 take 1 tablet by mouth every eight hours as needed for nausea Ondansetron 4 MG tablet Discontinued 4 mg PO EVERY 8 HOURS NEEDED as needed for Nausea July 18, 2021 1:00am February 05, 2023 7:27am sertraline 25 mg oral tablet (9 sources) Serotonin Reuptake Inhibitor Start: 10-02-2014 End: 02-05-2023 take 1 tablet by mouth once daily Sertraline (Zoloft) 25 MG tablet Discontinued 25 mg PO DAILY October 02, 2014 1:00am February 05, 2023 7:27am Problems Active Problems Problem Classification Problem Date Documented Da te Episodic/Chronic Bacterial infection; unspecified site (9 sources) Rheumatic fever; Translations: [Rheumatic fever without heart involvement] 06-01-2015 Episodic Comment on above: as a child, resolved .mitral systolic murmur Chronic obstructive pulmonary disease and bronchiectasis (7 sources) Pulmonary emphysema; Translations: [Emphysema, unspecified] 05-22-2023 Chronic Conditions associated with dizziness or vertigo (9 sources) Meniere's disease; Translations: [Meniere's disease, unspecified ear] 07-26-2021 Chronic Conditions associated with dizziness or vertigo (11 sources) Benign paroxysmal positional vertigo; Translations: [Benign paroxysmal vertigo, unspecified ear] Onset: 08-17-2024 07-26-2021 Episodic E Codes: Natural/environment (1 source) Bitten or stung by nonvenomous insect and other nonvenomous arthropods, initial encounter; Translations: [Insect bite] 06-13-2024 Episodic Essential hypertension (12 sources) Hypertensive disorder; Translations: [Essential (primary) hypertension] Onset: 08-16-2024 06-01-2015 Chronic Gastrointestinal hemorrhage (2 sources) Coffee ground vomiting; Translations: [Hematemesis] 02-03-2025 Episodic Genitourinary symptoms and ill-defined conditions (9 sources) Blood in urine; Translations: [Hematuria, unspecified] 06-01-2015 Episodic Nonspecific chest pain (2 sources) Chest pain; Translations: [Chest pain, unspecified] 02-03-2025 Episodic Other circulatory disease (9 sources) Low blood pressure; Translations: [Hypotension, unspecified] 06-01-2015 Episodic Other lower respiratory disease (7 sources) Fibrosis of lung; Translations: [Pulmonary fibrosis, unspecified] 02-06-2023 Chronic Other lower respiratory disease (6 sources) Pulmonary fibrosis, unspecified; Translations: [Postinflammatory pulmonary fibrosis] 02-05-2023 Chronic Other lower respiratory disease (3 sources) Interstitial pulmonary disease, unspecified; Translations: [Postinflammatory pulmonary fibrosis] 02-05-2023 Chronic Other lower respiratory disease (3 sources) H/O: respiratory disease; Translations: [Personal history of other diseases of the respiratory system] 06-27-2023 Episodic Pneumonia (except that caused by tuberculosis or sexually transmitted disease) (7 sources) Pneumonia; Translations: [Pneumonia, unspecified organism] 04-28-2023 Episodic Respiratory failure; insufficiency; arrest (adult) (7 sources) Chronic hypoxemic respiratory failure; Translations: [Chronic respiratory failure with hypoxia] 05-22-2023 Chronic Screening and history of mental health and substance abuse codes (9 sources) Tobacco use and exposure - finding; Translations: [Personal history of nicotine dependence] 06-01-2015 Episodic Skin and subcutaneous tissue infections (1 source) Cellulitis of right upper limb; Translations: [Cellulitis of right upper limb] 06-13-2024 Episodic Viral infection (3 sources) Disease caused by 2019-nCoV; Translations: [COVID-19] 06-27-2023 Episodic Past or Other Problems Problem Classification Problem Date Documented Da te Episodic/Chronic Other lower respiratory disease (1 source) Hemoptysis; Translations: [Hemoptysis] Onset: 06-30-2024 Episodic Residual codes; unclassified (1 source) Chills (without fever); Translations: [Chills (without fever)] Onset: 08-30-2024 Episodic Superficial injury; contusion (1 source) Insect bite (nonvenomous) of right forearm, initial encounter; Translations: [Insect bite (nonvenomous) of right forearm, initial encounter] Onset: 06-29-2024 Episodic Results Test Name Value Interpretation Reference Range Facility Absolute lymphocyte countOrd ered By: Luis Alas on 02-03-2025 Lymphocytes Auto (Unsp spec) [#/Vol] 1.62 10*3/uL 0.83-4.51 [facility] Absolute neutrophil countOrd ered By: Luis Alas on 02-03-2025 Neutrophils (Bld) [#/Vol] 5.2 10*3/uL 2.0-7.7 [facility] Anion gap in Serum or Plasma Ordered By: Luis Alas on 02-03-2025 Anion gap [Moles/Vol] 13 mmol/L 5-15 [facility] Automated lymphocyte count a s percentage of total leukocytesOrdered By: Luis Alas on 02-03-2025 Lymphocytes/100 WBC Auto (Unsp spec) 20.8 % 19-41 [facility] BUN/creatinine ratioOrdered By: Luis Alas on 06-12-2025 Urea nitrogen/Creatinine [Mass ratio] 24.7 mg/mg High 10-20 [facility] Basophil percentageOrdered B y: Luis Alas on 02-03-2025 Basophils/100 WBC (Bld) 0.5 % 0-1 [facility] Bilirubin, totalOrdered By: Luis Alas on 02-03-2025 Bilirubin [Mass/Vol] 0.59 mg/dL 0.00-1.30 [facility] Carbon dioxide, total [Moles /volume] in Central venous bloodOrdered By: Luis Alas on 02-03-2025 CO2 [Moles/Vol] 21.7 mmol/L 21.0-32.0 [facility] Chloride assayOrdered By: Del Alas on 02-03-2025 Chloride [Moles/Vol] 103 mmol/L 98-108 [facility] Eosinophil percentageOrdered By: Luis Alas on 02-03-2025 Eosinophils/100 WBC (Bld) 2.1 % 0-5 [facility] Erythrocyte distribution wid th ratioOrdered By: Luis Alas on 02-03-2025 Erythrocyte distribution width (RBC) [Ratio] 13.5 % 11.6-14.6 [facility] Erythrocyte distribution wid th standard deviationOrdered By: Luis Alas on 02-03-2025 Erythrocyte distribution width (RBC) [Ratio] 49.3 fl High 35.1-43.9 [facility] Glomerular filtration rate ( GFR) estimation/1.73 sq m using serum, plasma, or whole bOrdered By: Luis Alas on 02-03-2025 GFR/1.73 sq M.predicted among non-blacks MDRD (S/P/Bld) [Vol rate/Area] 84 mL/min/{1.73_m2} >60 [facility] Comment on above: mL/min/1.73m2 CKD-EP I Creatinine Equation (2020) Hematocrit Auto (Bld) [Volum e fraction]Ordered By: Luis Alas on 02-03-2025 Hematocrit (Bld) [Volume fraction] 39.3 % Low 40-54 [facility] Hemoglobin measurementOrdere d By: Luis Alas on 02-03-2025 Hemoglobin (Bld) [Mass/Vol] 12.8 g/dL Low 13.0-16. 5 [facility] Immature granulocytes/100 WB C Auto (Bld)Ordered By: Luis Alas on 02-03-2025 Immature granulocytes/100 WBC (Bld) 0.400 % 0.0-0.9 [facility] Comment on above: IG% - Immature Granu locytes (promyelocytes, myelocytes and metamyelocytes) > 1% indicates that a LEFT SHIFT is Present. Laboratory - Chemistry and C hemistry - challengeOrdered By: Luis Alas on 02-03-2025 AST [Catalytic activity/Vol] 21 U/L <38 [facility] Lipase measurementOrdered By : Luisblake Alas on 02-03-2025 Lipase [Catalytic activity/Vol] 24 U/L 13-75 [facility] Comment on above: Please note:LIPASE r evised reference range effective 22. New Lipase methodology. Expected to produce lower values than the previous assay method. NEW Reference Range: 13 - 75 U/L MCV (mean corpuscular volume ) determinationOrdered By: Luis Alas on 02-03-2025 MCV (RBC) [Entitic vol] 98.7 fL High 80-94 [facility] Mean corpuscular hemoglobin (MCH) determinationOrdered By: Luis Alas on 02-03-2025 MCH (RBC) [Entitic mass] 32.2 pg High 27.0-32.0 [facility] Mean corpuscular hemoglobin concentration (MCHC) determinationOrdered By: Luis Alas on 02-03-2025 MCHC (RBC) [Mass/Vol] 32.6 g/dL 32-36 [facility] Mean platelet volume determi nationOrdered By: Luis Alas on 02-03-2025 Platelet mean volume (Bld) [Entitic vol] 10.0 fL 6.2-12.0 [facility] Monocyte percentageOrdered B y: Luis Alas on 02-03-2025 Monocytes/100 WBC (Bld) 9.0 % 0-10 [facility] Neutrophil percentageOrdered By: Luis Alas on 02-03-2025 Neutrophils/100 WBC (Bld) 67.2 % 47-70 [facility] Nucleated red blood cell per centageOrdered By: Luis Alas on 02-03-2025 Nucleated RBC/100 WBC (Bld) [Ratio] 0 % 0-5 [facility] Platelet countOrdered By: Del Alas on 02-03-2025 Platelets (Bld) [#/Vol] 167 10*3/uL 150-450 [facility] Potassium measurement (mass/ volume)Ordered By: Luis Alas on 02-03-2025 Potassium (Unsp spec) [Mass/Vol] 4.2 mmol/L 3.3-5.1 [facility] RBC Auto (Bld) [#/Vol]Ordere d By: Luis Alas on 02-03-2025 RBC (Bld) [#/Vol] 3.98 10*6/uL Low 4.6-6.2 [facility] Serum creatinine measurement (mass/volume)Ordered By: Luis Alas on 02-03-2025 Creatinine [Mass/Vol] 0.88 mg/dL 0.70-1.20 [facility] Serum globulin measurementOr dered By: Luis Alas on 02-03-2025 Globulin (S) [Mass/Vol] 3.3 g/dL 2.2-4.2 [facility] Serum glucose measurement (m ass/volume)Ordered By: Luis Alas on 02-03-2025 Glucose [Mass/Vol] 114 mg/dL High 70-99 [facility] Serum or plasma alanine trotter otransferase (ALT) measurementOrdered By: Luis Alas on 02-03-2025 ALT [Catalytic activity/Vol] 12 U/L <47 [facility] Serum or plasma albumin lien urement (mass/volume)Ordered By: Luis Alas on 02-03-2025 Albumin [Mass/Vol] 4.1 g/dL 3.4-4.8 [facility] Serum or plasma albumin/glob ulin mass ratioOrdered By: Luis Alas on 02-03-2025 Albumin/Globulin [Mass ratio] 1.3 {ratio} 0.9-2.4 [facility] Serum or plasma alkaline stevenson sphatase measurementOrdered By: Luis Alas 02-03-2025 ALP [Catalytic activity/Vol] 102 U/L 40-129 [facility] Serum or plasma calcium lien urement (mass/volume)Ordered By: Luis Alas on 02-03-2025 Calcium [Mass/Vol] 9.2 mg/dL 7.6-11.0 [facility] Serum or plasma urea nitroge n measurement (mass/volume)Ordered By: Luis Alas on 02-03-2025 Urea nitrogen [Mass/Vol] 22 mg/dL High 4-19 [facility] Sodium levelOrdered By: Luis Alas on 02-03-2025 Sodium [Moles/Vol] 138 mmol/L 133-145 [facility] Total proteinOrdered By: Valery Alas on 02-03-2025 Protein [Mass/Vol] 7.3 g/dL 5.9-8.4 [facility] Troponin T.cardiac [Mass/vol ume] in Serum or Plasma by High sensitivity methodOrdered By: Luis Alas on 02-03-2025 Troponin T.cardiac High sensitivity method [Mass/Vol] 16 ng/L <22 [facility] Troponin T.cardiac High sensitivity method [Mass/Vol] 15 ng/L <22 [facility] White blood cell (WBC) count Ordered By: Luis Alas on 02-03-2025 WBC (Bld) [#/Vol] 7.8 10*3/uL 4.4-11.0 [facility] Pulmonary Visit Reporton Pulmonary Visit Report [facility] of [address] [place] [address] OFFICE VISIT Date of Service: 07/28/24 MR#: [id number] Acct: [id number] Name: ELMER RAMIREZ Rep #: [id number] 1 : 1940 Provider: Dr. Awais Hale DO Age/Sex: 84/M [place] [facility] [place] Status: Signed Assessment and Plan Assessment and Plan (1) Interstitial pulmonary fibrosis: Status: Chronic Plan: The patient's CT chest dated February 2023 demonstrated stigmata of bibasilar subpleural fibrosis with mild honeycomb formation and diffuse bilateral emphysematous changes. The patient's autoimmune work-up was unremarkable. These findings likely represent early idiopathic pulmonary fibrosis superimposed upon a background of emphysematous change. The patient has remained on a stable medication regimen with nintedanib. Recent liver function profile was within normal limits. If the patient were to worsen from a respiratory perspective, would recommend a follow-up PFTs and potentially high-resolution chest CT be obtained. (2) Chronic hypoxemic respiratory failure: Status: Chronic Plan: The patient's last 6-minute walk test completed in our office during his last office visit demonstrated the need for 3 L/min of supplemental oxygen with exertion. However, the patient readily admitted that he has not been utilizing his supplemental oxygen as prescribed. HPI HPI Comments Details: The patient is an 84-year-old male who presents to the clinic today for a routine scheduled follow- up office visit. If you recall, the patient initially presented to our office in January 2023 over concerns for interstitial lung disease. The patient has an approximate [id number] smoking history, having quit completely 40 years ago. Despite this, the patient had pulmonary function studies completed in December 2022 which were within normal limits. 6-minute walk test completed in our office in January 2023 demonstrated the need for 3 L/min of supplemental oxygen with exertion. The patient completed a high-resolution chest CT in February 2023 which demonstrated subpleural peripheral fibrosis along with moderate emphysematous changes and a large hiatal hernia. 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 The patient had a negative autoimmune work-up completed in January 2023. QuantiFERON-TB testing was negative. 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 Today, the patient reports overall stability in his breathing quality. He has remained compliant with the use of nintedanib. Recent liver function profile completed last month was within normal limits. The patient was recently treated for bronchitis by his PCP due to the presence of a cough with sputum production. He does not utilize any inhalers at his baseline. He denies any fevers, chills or night sweats. Intake Vital Signs 01/16/24 08:08 07/18/24 19:00 07/28/24 09:40 Height 6 ft 3 in 6 ft 2 in 6 ft 2 in Weight: 155 lb BMI 19.9 BP 135/101 H Blood Pressure Location Lt radial Position Sitting Respiration 20 H Pulse 86 Pulse Source Monitor Temp 97.4 F L Temperature Source Temporal Artery Pulse Oximetry (%) 98 Oxygen Delivery Method room air Intake Visit Reasons: 6 M FU Chief Complaint: follow up Web Site Specialist Required: No DME Vendor: [employer] Accompanied by: Self Allergies No Known Allergies Allergy (Verified 07/28/24 10:35) Medications ???Medication ???Instructions ???Recorded ???Confirmed ???Type propranolol 10 mg tablet 10 mg PO BID #60 TABLETS 02/07/15 07/28/24 Rx nintedanib 150 mg capsule 150 mg PO Q12H #60 caps 05/10/24 07/28/24 Rx meclizine 25 mg tablet mg PO 07/28/24 07/28/24 History Have you fallen in the past year?: No PFSH Medical History Interstitial pulmonary fibrosis Tremor Surgical History History of tonsillectomy Family History Son Cancer CVA (cerebral vascular accident) Social History Smoking Status: Never smoker how long ago did patient quit smokin years ago Review of Systems Resp Respiratory: Yes as per HPI Exam Const Constitutional: Positive conversant, cooperative, in no acute respiratory distress, well developed, well nourished and good hygiene Head Head: Yes normocephalic and Yes atraumatic Eyes Eye: Positive clear conjunctiva; Negative nystagmus or scleral abnormality Ears Ear: Positive hearing normal and external ears normal Nose Nose: Yes external nose normal Mouth Mouth: Positive oral mucosae normal and posterior oropharynx is adequate; (more content not included)... Normal [facility] M100.678on 07-27-2024 M100.678 Pending SARS-CoV-2 (COVID 19) Negative INFLUENZA A Negative INFLUENZA B Negative RSV PCR Negative Normal [facility] Comment on above: Performed By: #### M 100.678 #### [facility] [address] [place], [address] CBC W/Diff, Automatedon 06-26 Absolute Lymph 2.03 X10 3/uL Normal 0.83-4.51 [facility] Comment on above: Performed By: #### L [id number], L100.0100, L506.1000, L500.4050, L500.4100 #### [facility] [address] [place], [address] Absolute Neut 3.5 X10 3/uL Normal 2.0-7.7 [facility] Comment on above: Performed By: #### L [id number], L100.0100, L506.1000, L500.4050, L500.4100 #### [facility] [address] [place], [address] Basophils/100 WBC (Bld) 0.8 % Normal 0-1 [facility] Comment on above: Performed By: #### L [id number], L100.0100, L506.1000, L500.4050, L500.4100 #### [facility] [address] [place], [address] Eosinophils/100 WBC (Bld) 1.9 % Normal 0-5 [facility] Comment on above: Performed By: #### L [id number], L100.0100, L506.1000, L500.4050, L500.4100 #### [facility] [address] [place], [address] Erythrocyte distribution width (RBC) [Ratio] 13.4 % Normal 11.6-14.6 [facility] Comment on above: Performed By: #### L [id number], L100.0100, L506.1000, L500.4050, L500.4100 #### [facility] [address] [place], [address] Hematocrit (Bld) [Volume fraction] 38.9 % Low 40-54 [facility] Comment on above: Performed By: #### L [id number], L100.0100, L506.1000, L500.4050, L500.4100 #### [facility] [address] [place], [address] Hemoglobin (Bld) [Mass/Vol] 12.7 g/dL Low 13.0-16. 5 [facility] Comment on above: Performed By: #### L [id number], L100.0100, L506.1000, L500.4050, L500.4100 #### [facility] [address] [place], [address] IG% 0.300 Normal 0.0-0.9 [facility] Comment on above: Result Comment: IG% - Immature Granulocytes (promyelocytes, myelocytes and metamyelocytes) > 1% indicates that a LEFT SHIFT is Present. Performed By: #### L 501.9520, L100.0100, L506.1000, L500.4050, L500.4100 #### [facility] [address] [place], [address] Lymphocytes/100 WBC (Bld) 32.1 % Normal 19-41 [facility] Comment on above: Performed By: #### L 501.9520, L100.0100, L506.1000, L500.4050, L500.4100 #### [facility] [address] [place], [address] MCH (RBC) [Entitic mass] 32.3 pg High 27.0-32.0 [facility] Comment on above: Performed By: #### L 501.9520, L100.0100, L506.1000, L500.4050, L500.4100 #### [facility] [address] [place], [address] MCHC (RBC) [Mass/Vol] 32.6 g/dL Normal 32-36 [facility] Comment on above: Performed By: #### L 501.9520, L100.0100, L506.1000, L500.4050, L500.4100 #### [facility] [address] [place], [address] MCV (RBC) [Entitic vol] 99.0 fL High 80-94 [facility] Comment on above: Performed By: #### L 501.9520, L100.0100, L506.1000, L500.4050, L500.4100 #### [facility] [address] [place], [address] Monocytes/100 WBC (Bld) 10.3 % High 0-10 [facility] Comment on above: Performed By: #### L 501.9520, L100.0100, L506.1000, L500.4050, L500.4100 #### [facility] [address] [place], [address] Neutrophils/100 WBC (Bld) 54.6 % Normal 47-70 [facility] Comment on above: Performed By: #### L 501.9520, L100.0100, L506.1000, L500.4050, L500.4100 #### [facility] [address] [place], [address] Nucleated RBC (Bld) [#/Vol] 0 10*3/uL Normal 0-5 [facility] Comment on above: Performed By: #### L 501.9520, L100.0100, L506.1000, L500.4050, L500.4100 #### [facility] [address] [place], [address] Platelet mean volume (Bld) [Entitic vol] 9.3 fL Normal 6.2-12.0 [facility] Comment on above: Performed By: #### L 501.9520, L100.0100, L506.1000, L500.4050, L500.4100 #### [facility] [address] [place], [address] Platelets (Bld) [#/Vol] 197 10*3/uL Normal 150-450 [facility] Comment on above: Performed By: #### L 501.9520, L100.0100, L506.1000, L500.4050, L500.4100 #### [facility] [address] [place], [address] RBC (Bld) [#/Vol] 3.93 10*6/uL Low 4.6-6.2 [facility] Comment on above: Performed By: #### L 501.9520, L100.0100, L506.1000, L500.4050, L500.4100 #### [facility] [address] [place], [address] RDW SD 48.9 fl High 35.1-43.9 [facility] Comment on above: Performed By: #### L 501.9520, L100.0100, L506.1000, L500.4050, L500.4100 #### [facility] [address] [place], [address] WBC (Bld) [#/Vol] 6.3 10*3/uL Normal 4.4-11.0 [facility] Comment on above: Performed By: #### L 501.9520, L100.0100, L506.1000, L500.4050, L500.4100 #### [facility] [address] [place], [address] Comprehensive Metabolic [facility] ilon 07-19-2024 Albumin [Mass/Vol] 3.5 g/dL Normal 3.2-5.0 [facility] Comment on above: Performed By: #### L 501.9520, L100.0100, L506.1000, L500.4050, L500.4100 #### [facility] [address] [place], [address] Albumin/Globulin [Mass ratio] 1.0 {ratio} Normal 0.9-2.4 [facility] Comment on above: Performed By: #### L 501.9520, L100.0100, L506.1000, L500.4050, L500.4100 #### [facility] [address] [place], [address] ALK P 78 U/L Normal 45-117 [facility] Comment on above: Performed By: #### L 501.9520, L100.0100, L506.1000, L500.4050, L500.4100 #### [facility] [address] [place], [address] ALT [Catalytic activity/Vol] 17 U/L Normal 16-61 [facility] Comment on above: Performed By: #### L 501.9520, L100.0100, L506.1000, L500.4050, L500.4100 #### [facility] [address] [place], [address] AST [Catalytic activity/Vol] 19 U/L Normal 15-37 [facility] Comment on above: Performed By: #### L 501.9520, L100.0100, L506.1000, L500.4050, L500.4100 #### [facility] [address] [place], [address] Bilirubin [Mass/Vol] 0.50 mg/dL Normal 0.20-1.00 [facility] Comment on above: Result Comment: For patients on eltrombopag therapy, use of Dimension Odem TBIL is not recommended. Performed By: #### L 501.9520, L100.0100, L506.1000, L500.4050, L500.4100 #### [facility] [address] [place], [address] BUN/CRE 23.6 RATIO High 10-20 [facility] Comment on above: Performed By: #### L 501.9520, L100.0100, L506.1000, L500.4050, L500.4100 #### [facility] [address] [place], [address] CA,Total 8.8 mg/dL Normal 8.5-10.1 [facility] Comment on above: Performed By: #### L 501.9520, L100.0100, L506.1000, L500.4050, L500.4100 #### [facility] [address] [place], [address] Chloride [Moles/Vol] 109 mmol/L High 98-107 [facility] Comment on above: Performed By: #### L 501.9520, L100.0100, L506.1000, L500.4050, L500.4100 #### [facility] [address] [place], [address] CO2 [Moles/Vol] 24.0 mmol/L Normal 21.0-32.0 [facility] Comment on above: Performed By: #### L 501.9520, L100.0100, L506.1000, L500.4050, L500.4100 #### [facility] [address] [place], [address] Creatinine [Mass/Vol] 1.10 mg/dL Normal 0.70-1.30 [facility] Comment on above: Result Comment: The validity of the calculated GFR GFRAA in patients over 70 years has not been determined. Clinical correlation is essential. Performed By: #### L 501.9520, L100.0100, L506.1000, L500.4050, L500.4100 #### [facility] [address] [place], [address] EST GFR - AA 82 mL/min Normal >60 [facility] Comment on above: Result Comment: Afri can Ghanaian GFR Calc Performed By: #### L 501.9520, L100.0100, L506.1000, L500.4050, L500.4100 #### [facility] [address] [place], [address] GAP 6 Normal 5-15 [facility] Comment on above: Performed By: #### L 501.9520, L100.0100, L506.1000, L500.4050, L500.4100 #### [facility] [address] [place], [address] GFR/1.73 sq M.predicted among non-blacks MDRD (S/P/Bld) [Vol rate/Area] 68 mL/min/{1.73_m2} Normal >60 [facility] Comment on above: Result Comment: Non- GFR Calc Performed By: #### L 501.9520, L100.0100, L506.1000, L500.4050, L500.4100 #### [facility] [address] [place], [address] Globulin (S) [Mass/Vol] 3.6 g/dL Normal 2.2-4.2 [facility] Comment on above: Performed By: #### L 501.9520, L100.0100, L506.1000, L500.4050, L500.4100 #### [facility] [address] [place], [address] Glucose [Mass/Vol] 107 mg/dL High 74-106 [facility] Comment on above: Result Comment: Fast ing Glucose result from 100 to 125 mg/dL suggests IMPAIRED HOMEOSTASIS per A.D.A. criteria. Performed By: #### L 501.9520, L100.0100, L506.1000, L500.4050, L500.4100 #### [facility] [address] [place], [address] Potassium [Moles/Vol] 5.0 mmol/L Normal 3.5-5.1 [facility] Comment on above: Performed By: #### L 501.9520, L100.0100, L506.1000, L500.4050, L500.4100 #### [facility] [address] [place], [address] Sodium [Moles/Vol] 139 mmol/L Normal 136-145 [facility] Comment on above: Performed By: #### L 501.9520, L100.0100, L506.1000, L500.4050, L500.4100 #### [facility] [address] [place], [address] T PROT 7.1 g/dL Normal 6.4-8.2 [facility] Comment on above: Performed By: #### L 501.9520, L100.0100, L506.1000, L500.4050, L500.4100 #### [facility] [address] [place], [address] Urea nitrogen [Mass/Vol] 26 mg/dL High 7-18 [facility] Comment on above: Performed By: #### L 501.9520, L100.0100, L506.1000, L500.4050, L500.4100 #### [facility] [address] [place], [address] Lipid Profileon 07-19-2024 Cholesterol [Mass/Vol] 131 mg/dL Normal 200 [facility] Comment on above: Result Comment: <200 mg/dL Desirable 200-240 mg/dL Borderline >240 mg/dL High Risk Performed By: #### L 501.9520, L100.0100, L506.1000, L500.4050, L500.4100 ####[facility] [address] [place], [address] Cholesterol in HDL [Mass/Vol] 46 mg/dL Normal [facility] Comment on above: Result Comment: The drugs N-Acetylcysteine and Metamizole may falsely depress this assay. Reference Range HDL <40 mg/dL Low HDL Cholesterol HDL >or= 60 mg/dL High HDL Cholesterol Performed By: #### L 501.9520, L100.0100, L506.1000, L500.4050, L500.4100 ####[facility] [address] [place], [address] Cholesterol in LDL [Mass/Vol] 59 mg/dL Normal 0-130 [facility] Comment on above: Performed By: #### L 501.9520, L100.0100, L506.1000, L500.4050, L500.4100 ####[facility] [address] [place], [address] Cholesterol in VLDL [Mass/Vol] 26 mg/dL Normal 5-40 [facility] Comment on above: Performed By: #### L 501.9520, L100.0100, L506.1000, L500.4050, L500.4100 ####[facility] [address] [place], [address] Triglyceride [Mass/Vol] 131 mg/dL Normal [facility] Comment on above: Result Comment: The drugs N-Acetylcysteine and Metamizole may falsely depress this assay. Serum Triglycerides Reference Interval Normal <150 mg/dL Borderline high 150 - 199 mg/dL High 200 - 499 mg/dL Very High > or = 500 mg/dL Performed By: #### L 501.9520, L100.0100, L506.1000, L500.4050, L500.4100 ####[facility] [address] [place], [address] Thyroid Stim Hormone (TSH)on 07-19-2024 TSH 2.880 uIU/mL Normal 0.358-3.74 0 [facility] Comment on above: Performed By: #### L 501.9520, L100.0100, L506.1000, L500.4050, L500.4100 ####[facility] [address] [place], [place], [id number] Vitamin D,25 Hydroxyon 07-19 Vitamin D 25-OH 21.8 ng/mL Normal [facility] Comment on above: Result Comment: Kiara min D 25(OH) Status Range Deficiency <20 ng/mL (50nmol/L) Insufficiency 20 - 30 ng/mL (50 - 75 nmol/L) Sufficiency 30 - 100 ng/mL (75 - 250 nmol/L) Toxicity >100 ng/mL (>250 nmol/L) Performed By: #### L 501.9520, L100.0100, L506.1000, L500.4050, L500.4100 ####[facility] [address] [place], [place], [id number] Brain/Head without Contrasto n 07-18-2024 Brain/Head without Contrast [facility] [address] [place], [place] [id number] Brain/Head without Contrast MR#: [id number] Acct: [id number] Name: ELMER RAMIREZ Rep #: [id number] : 1940 M 84 From: Edwardo Antunez PCP: Dr. Laurent [place] MD Status: [facility] Study: Brain/Head without Contrast Date of Exam: 06/26 12/16 Exam# [id number] Ordering [place]: [place] [id number] STUDY: CT BRAIN WITHOUT CONTRAST REASON FOR EXAM: Male, 84 years old. headache, dizzy Individualized dose optimization techniques were used for this CT. TECHNIQUE: Transaxial CT imaging of the brain was performed without administration of intravenous contrast material. COMPARISON: None FINDINGS: There are calcifications noted in the distal vertebral arteries. There are calcifications noted in the cavernous carotid arteries. This is consistent for atherosclerotic disease. Normal calvarium. Normal soft tissues. There is mild cerebral atrophy with widening of the extra-axial spaces and ventricular dilatation. There are areas of decreased attenuation within the white matter tracts of the supratentorial brain, consistent with microvascular disease changes. Normal basal ganglia and thalami. Normal brainstem. There is mild cerebellar atrophy. There is no intracranial hemorrhage. There are no findings of an acute ischemic infarction. Normal visualized paranasal sinuses. ASPECTS Score for Acute Strokes: 06/03 CT/Brain/Head without Contrast IMPRESSION: There are no acute findings. Chronic involutional changes of the brain. Electronically Signed: Edwardo Garcia MD at 20:17 EST , CC: Dr. Arnulfo Todd MD; Dr. Laurent [place] MD Sales Promotion Representative: Signed Normal [facility] Emergency Department Summary on 07-18-2024 Emergency Department Summary [facility] Medical Records Department [address] [place] [address] Emergency Department Summary 07/18/24 MR#: [id number] Acct: [id number] Name: ELMER RAMIREZ Rep #: [id number] : 1940 84 From: Arnulfo Todd MD PCP: Dr. Laurent [place] MD Status:REG ER Location: ED HPI History of Present Illness Chief Complaint: Dizziness Informant: patient and spouse/S.O. Narrative Narrative: 84-year-old male complaining of intermittent spinning dizziness for the past 3 to 4 days. Episodes last for a minute or less when they occur and are triggered every time by some type of movement usually his head. Getting out of bed he had it as well. He thinks he was just walking when it originally started several days ago. He thinks he has had some vertigo before but does not remember any of the details. It was in the past. He states he has had some mild occasional headaches that have been intermittent as well for the past couple days. He denies a sudden onset severe headache or thunderclap associated with the onset of any of these episodes. No loss of consciousness. When the dizziness is present he feels off balance and has almost fallen, but states today he caught himself and did not injure himself. He denies any focal neurologic symptoms or problems speaking or understanding others or confusion. He states sometimes his vision is blurry with this and he gets nauseated but has had no vision loss, diplopia, no tinnitus, and no vomiting. No recent ear infection or URI. No recent head injuries. Before coming here, checked his blood pressure and it was in the 160s/110s, as it is here in triage. She states that is unusual for him. [facility] Medical History Interstitial pulmonary fibrosis Tremor Home Medications ???Medication ???Instructions ???Recorded ???Last Taken ???Type propranolol 10 mg tablet 10 mg PO BID #60 TABLETS 02/07/15 06/01/15 07:00 Rx nintedanib 150 mg capsule 150 mg PO Q12H #60 caps 05/10/24 Unknown Rx amoxicillin 875 mg-potassium 875 mg PO Q12H #20 TABLETS 06/05/24 Unknown Rx clavulanate 125 mg tablet Allergy/AdvReac Type Severity Reaction Status Date / Time No Known Allergies Allergy Verified 07/18/24 19:01 Family History Son Cancer CVA (cerebral vascular accident) Surgical History History of tonsillectomy Social History Smoking Status: Never smoker how long ago did patient quit smokin years ago ROS ROS ED Constitutional Constitutional ED: Denies chills or fever(s) Eyes Eyes: Denies change in vision or diplopia ENT ENT ED: Reports dizziness; Denies ear pain, rhinorrhea, sore throat or tinnitus Cardiovascular Cardiovascular: Denies chest pain or palpitations Respiratory/Chest Respiratory/Chest: Denies cough or dyspnea Gastrointestinal Gastrointestinal: Reports nausea; Denies abdominal pain, diarrhea or vomiting Genitourinary Genitourinary ED: Denies dysuria or hematuria Musculoskeletal Musculoskeletal: Denies back pain or neck pain Integumentary Denies abscess or rash Neurologic Neurologic: Reports dizziness, headache(s), vertigo and other Details: Normal gait when not dizzy ; Denies abnormal gait, abnormal hearing, abnormal speech, confusion, focal weakness, paresthesias, syncope or weakness Psychiatric Psychiatric: Denies anxiety or suicidal thoughts EXAM Physical Exam Const Vital Signs: 07/18/24 19:00 07/18/24 20:36 Temperature 97.6 F L Temperature Source Temporal Pulse Rate 110 H 89 Respiratory Rate 19 H 16 Blood Pressure 162/118 H 135/96 H Blood Pressure Mean 132 109 Pulse Ox 99 100 Oxygen Delivery Method Room Air Room Air Positive well nourished and well developed General Appearance ED: well developed and NAD HEENT Reports TM's clear and moist mucous membranes normocephalic and atraumatic Tympanic Membrane ED: Yes TM's clear Eyes PERRL and EOMs intact bilaterally Neck full ROM and supple Resp normal respiratory effort and clear to auscultation bilaterally Cardio regular rate and regular rhythm GI non-tender and non-distended Auscultation: normoactive bowel sounds Palpation: soft Back/Spine no CVA tenderness General Back: other FROM Extremity normal to inspection General Extremety ED: Negative for edema, pulses abnormal or tenderness General Extremity: Negative for edema or pulses abnormal Neuro oriented x3, CN's II-XII intact bilaterally and no sensory deficits noted Neuro Narrative: Normal fkghhh-hg-qfxa and ucmd-xc-ouxn bilaterally, no dysmetria. No ataxia when walking, gait is normal. Normal speech and recepti (more content not included)... Normal [facility] Lyme Antibodies,W Bloton LYME IgG INTERP Negative Normal . [facility] Comment on above: Order Comment: Speci men Comment: A duplicate report has been generated due to demographic Specimen Comment: updates. Result Comment: Posi tive: 5 of the following Borrelia-specific bands: 18,23,28,30,39,41,45,58, 66, and 93. Negative: No bands or banding patterns which do not meet positive criteria. Performed By: #### L 7000.5800 #### [facility] [address] [place], [address] LYME IgM INTERP Negative Normal . [facility] Comment on above: Order Comment: Speci men Comment: A duplicate report has been generated due to demographic Specimen Comment: updates. Result Comment: Note : An equivocal or positive EIA result followed by a negative Line Blot result is considered NEGATIVE. An equivocal or positive EIA result followed by a positive Line Blot is considered POSITIVE by the CDC. Positive: 2 of the following bands: 23,39 or 41 Negative: No bands or banding patterns which do not meet positive criteria. Criteria for positivity are those recommended by CDC/ASTPHLD. p23=Osp C, l05=szbvdzwdp Note: Sera from individuals with the following may cross react in the Lyme Line Blot assays: other spirochetal diseases (periodontal disease, leptospirosis, relapsing fever, yaws, and pinta); connective autoimmune (Rheumatoid Arthritis and Systemic Lupus Erythematosus and also individuals with Antinuclear Antibody); other infections ([place] Spotted Fever; Lily-Das Virus, and Cytomegalovirus). Please Note: Lyme immunoblot alone is not recommended for the diagnosis of Lyme disease. Current guidelines recommend the use of a two-tiered approach to Lyme serology testing to improve the sensitivity and specificity of testing. [facility] [employer] offers test code 030359 Lyme Disease Serology with Reflex to aid in the diagnosis of Lyme Disease. Performed at: [address] [id number] Information And Data Architect Analyst: Enrike David MD, Phone: [phone] Performed By: #### L 7000.5800 #### [facility] [address] [place], [address] P18 Ab Absent Normal . [facility] Comment on above: Order Comment: Speci men Comment: A duplicate report has been generated due to demographic Specimen Comment: updates. Performed By: #### L 7000.5800 #### [facility] [address] [place], [address] P23 Ab Absent Normal . [facility] Comment on above: Order Comment: Speci men Comment: A duplicate report has been generated due to demographic Specimen Comment: updates. Performed By: #### L 7000.5800 #### [facility] [address] [place], [address] P28 Ab Absent Normal . [facility] Comment on above: Order Comment: Speci men Comment: A duplicate report has been generated due to demographic Specimen Comment: updates. Performed By: #### L 7000.5800 #### [facility] [address] [place], [address] P30 Ab Absent Normal . [facility] Comment on above: Order Comment: Speci men Comment: A duplicate report has been generated due to demographic Specimen Comment: updates. Performed By: #### L 0.5800 #### [facility] [address] [place], [address] P39 Ab Absent Normal . [facility] Comment on above: Order Comment: Speci men Comment: A duplicate report has been generated due to demographic Specimen Comment: updates. Performed By: #### L 7000.5800 #### [facility] [address] [place], [address] P41 Ab Absent Normal . [facility] Comment on above: Order Comment: Speci men Comment: A duplicate report has been generated due to demographic Specimen Comment: updates. Performed By: #### L 0.5800 #### [facility] [address] [place], [address] P45 Ab Absent Normal . [facility] Comment on above: Order Comment: Speci men Comment: A duplicate report has been generated due to demographic Specimen Comment: updates. Performed By: #### L 7000.5800 #### [facility] [address] [place], [address] P58 Ab Absent Normal . [facility] Comment on above: Order Comment: Speci men Comment: A duplicate report has been generated due to demographic Specimen Comment: updates. Performed By: #### L 6999.5800 #### [facility] [address] [place], [address] P66 Ab Absent Normal . [facility] Comment on above: Order Comment: Speci men Comment: A duplicate report has been generated due to demographic Specimen Comment: updates. Performed By: #### L 7000.5800 #### [facility] [address] [place], [address] P93 Ab Absent Normal . [facility] Comment on above: Order Comment: Speci men Comment: A duplicate report has been generated due to demographic Specimen Comment: updates. Performed By: #### L 7000.5800 #### [facility] [address] [place], [address] CREATININE FINGERSTICKon CREATININE WB < 1.0 Normal 0.70-1.30 [facility] Comment on above: Performed By: #### L 9100.0200 #### [facility] [address] [place], [address] EGFR WB > 60.0000 Normal >60 [facility] Comment on above: Performed By: #### L 9100.0200 #### [facility] [address] [place], [address] CTA Chest W/WO Contraston CTA Chest W/WO Contrast [facility] Imaging Services [address] [place] [address] CTA Chest W/WO Contrast MR#: [id number] Acct: [id number] Name: ASHLEYELMER D Rep #: [id number] : 1940 M 83 From: Hilton Guido MD PCP: Dr. Laurent [place] MD Status: [facility] Study: CTA Chest W/WO Contrast Date of Exam: 06/08/24 Exam# [id number] Ordering Dr: [place] [id number] STUDY: CTA CHEST REASON FOR EXAM: Male, 83 years old. HEMOPTYSIS RADIATION DOSAGE (If Supplied By Facility): CTDIvol = ( 22.18 ) mGy, DLP = ( 423.01 ) mGycm TECHNIQUE: The examination was performed with the intravenous administration of IV 100mL [id number]-370. Post-processing of the angiographic images was performed, with multiplanar reformation and 3D reconstruction. Individualized dose optimization techniques were used for this CT. COMPARISON: None. FINDINGS: Normal enhancement of the main pulmonary artery and right and left pulmonary arteries. Normal enhancement of the bilateral peripheral pulmonary arteries. There is no demonstrated pulmonary embolism. Atherosclerotic changes of the aorta without evidence for aneurysm.. There is no demonstrated aortic dissection. There is a massive hiatal hernia containing large portion of the stomach, portion of the colon, and intra-abdominal fat displacing the heart anteriorly.. There is multivessel coronary artery calcification Tiny subcentimeter hilar and mediastinal nodes likely benign Normal visualized trachea and bronchi. The lungs are well expanded. Chronic interstitial thickening and emphysematous changes are noted. There are patchy areas of groundglass opacity in the posterior segment of the right upper lobe, superior segment of the right lower lobe, and left lower lobe possibly representing coexisting inflammatory disease. Normal pleura. Normal chest wall structures. Dorsal spine demonstrates mild spondylosis. Normal visualized upper abdomen. CT/CTA Chest W/WO Contrast IMPRESSION: Extensive interstitial and emphysematous change with patchy areas of groundglass opacity possibly representing coexisting inflammatory disease. No evidence for pulmonary embolus. Incidental finding of massive hiatal hernia Electronically Signed: Hilton Guido MD at 18:14 EDT , CC: Dr. Laurent York MD Sales Promotion Representative: Signed Normal [facility] Emergency Department Summary on 06-05-2024 Emergency Department Summary [facility] Medical Records Department [address] [place] [id number] Emergency Department Summary 06/05/24 MR#: [id number] Acct: [id number] Name: ELMER RAMIREZ Rep #: [id number] : [id number] From: Ed Bajwa PCP: Dr. Laurent York MD Status:DEP ER Location: ED HPI History of Present Illness Chief Complaint: Bite Informant: patient and family Narrative Narrative: Here with granddaughter concerns for bite to the right forearm. Woke up with pain. Was outdoors yesterday. There was a bump in the blister states he scratched at it opened up. Discomfort throughout the day he states had transient chills and dizziness and nausea. Currently resolved. Denies diabetes history. PFSH PFS Medical History Interstitial pulmonary fibrosis Tremor Home Medications ???Medication ???Instructions ???Recorded ???Last Taken ???Type propranolol 10 mg tablet 10 mg PO BID #60 TABLETS 02/07/15 06/01/15 07:00 Rx nintedanib 150 mg capsule 150 mg PO Q12H #60 caps 05/10/24 Unknown Rx amoxicillin 875 mg-potassium 875 mg PO Q12H #20 TABLETS 06/05/24 Unknown Rx clavulanate 125 mg tablet Allergy/AdvReac Type Severity Reaction Status Date / Time No Known Allergies Allergy Verified 06/05/24 20:08 Family History Son Cancer CVA (cerebral vascular accident) Surgical History History of tonsillectomy Social History Smoking Status: Never smoker how long ago did patient quit smokin years ago ROS ROS ED Constitutional Constitutional ED: Reports chills; Denies fever(s) or sweats Eyes Eyes: Denies change in vision ENT ENT ED: Denies dysphagia or sore throat Cardiovascular Cardiovascular: Denies chest pain, leg edema, palpitations or racing heartbeat Respiratory/Chest Respiratory/Chest: Denies cough, dyspnea or dyspnea on exertion Gastrointestinal Gastrointestinal: Reports nausea; Denies abdominal pain, diarrhea or vomiting Genitourinary Genitourinary ED: Denies dysuria, hematuria or urinary frequency Musculoskeletal Musculoskeletal: Denies back pain, extremity pain or neck pain Integumentary Reports wounds; Denies rash Neurologic Neurologic: Reports other Details: Dizzy ; Denies headache(s), paresthesias or weakness EXAM Physical Exam Const Vital Signs: 06/05/24 20:08 Temperature 98.1 F Temperature Source Oral Pulse Rate 99 Respiratory Rate 16 Blood Pressure 150/88 H Blood Pressure Mean 108 Pulse Ox 98 Oxygen Delivery Method Room Air Positive well nourished and well developed General Appearance ED: well developed and NAD HEENT Reports moist mucous membranes normocephalic and atraumatic Eyes EOMs intact bilaterally and conjunctivae normal General Eye ED: Yes normal appearance of both eyes Neck no lymphadenopathy and supple General: Negative for tenderness Chest Wall Chest: Negative for tenderness Resp normal respiratory effort and normal air movement Effort and Inspection: symmetric chest movement; Negative for respiratory distress Cardio regular rate, regular rhythm and no murmurs Peripheral Pulses: pulses 2+ throughout GI normal to inspection, nondistended, normoactive bowel sounds and non-tender Palpation: Negative for guarding or rebound tenderness present Back/Spine no CVA tenderness and no thoracic nor lumbar tenderness Extremity Extremity Narrative: Right upper extremity: Small dime size induration open wound proximal dorsal forearm. There is surrounding erythema palm size extends to the mid forearm. Does not extend to the elbow no pain with elbow movement. No active drainage. General Extremety ED: Yes tenderness; Negative for edema General Extremity: Negative for edema Neuro oriented x3 and no sensory deficits noted Sensorium / Orientation: awake and alert Skin no rashes or lesions noted and no wounds MDM MDM MDM Narrative Medical decision making narrative: Interventions / MDM: Differential diagnosis: Insect bite, cellulitis Diagnosis considered but do not suspect: No clinical bursitis or septic joint My EKG interpretation: N/A Imaging independently reviewed and interpreted by myself: N/A External documents reviewed: N/A Test considered but not ordered:N/A ED course: Patient likely insect bite with the bump, there is surrounding erythema that is warm. No joint involvement, this is also away from bursa areas. Erythema was outlined. Meds to bed started on Augmentin. Discussed return precautions. All questions were answered. Re-evaluation: stable Disposition discussed with patient/family/signific ant other: Patient and granddaughter Chencho (more content not included)... Normal [facility] Absolute lymphocyte countOrd ered By: Laurent York on 06-30-2023 Lymphocytes Auto (Unsp spec) [#/Vol] 1.35 10*3/uL 0.83-4.51 [facility] Basophil percentageOrdered B y: Laurent York on 06-30-2023 Basophils/100 WBC (Bld) 0.4 % 0-1 [facility] Bilirubin [Mass/Vol] 0.40 mg/dL 0.20-1.00 [facility] Comment on above: For patients on eltr ombopag therapy, use of Dimension Odem TBIL is not recommended. Chloride [Moles/Vol] 106 mmol/L 98-107 [facility] Cholesterol [Mass/Vol] 113 mg/dL <200 [facility] Comment on above: <200 mg/dL Desirable 200-240 mg/dL Borderline >240 mg/dL High Risk Eosinophils/100 WBC (Bld) 1.6 % 0-5 [facility] Glucose [Mass/Vol] 91 mg/dL 74-106 [facility] Neutrophils (Bld) [#/Vol] 2.5 10*3/uL 2.0-7.7 [facility] Neutrophils/100 WBC (Bld) 56.5 % 47-70 [facility] Potassium [Moles/Vol] 4.3 mmol/L 3.5-5.1 [facility] Protein [Mass/Vol] 6.7 g/dL 6.4-8.2 [facility] Sodium [Moles/Vol] 138 mmol/L 136-145 [facility] Triglyceride [Mass/Vol] 116 mg/dL <199 [facility] Comment on above: The drugs N-Acetylcy steine and Metamizole may falsely depress this assay.Serum Triglycerides Reference Interval Normal <150 mg/dL Borderline high 150 - 199 mg/dL High 200 - 499 mg/dL Very High > or = 500 mg/dL WBC (Bld) [#/Vol] 4.5 10*3/uL 4.4-11.0 [facility] Blood erythrocytes count (nu mber/volume)Ordered By: Laurent York on 06-30-2023 RBC (Bld) [#/Vol] 4.12 10*6/uL 4.6-6.2 [facility] Blood hemoglobin measurement (mass/volume)Ordered By: Laurent Jaylen on 06-30-2023 Hemoglobin (Bld) [Mass/Vol] 12.7 g/dL 13.0-16. 5 [facility] Blood lymphocytes/100 leukoc ytesOrdered By: [facility] Jaylen on 06-30-2023 Lymphocytes/100 WBC (Bld) 30.1 % 19-41 [facility] Blood monocytes/100 leukocyt esOrdered By: [facility] Jaylen on 06-30-2023 Monocytes/100 WBC (Bld) 11.2 % 0-10 [facility] Blood platelet mean volumeOr dered By: [facility] on 06-30-2023 Platelet mean volume (Bld) [Entitic vol] 10.0 fL 6.2-12.0 [facility] Determination of erythrocyte mean corpuscular volume (MCV)Ordered By: [facility] on 06-30-2023 MCV (RBC) [Entitic vol] 98.5 fL 80-94 [facility] Hematocrit Auto (Bld) [Volum e fraction]Or[facility] By: [facility] on 06-30-2023 Hematocrit (Bld) [Volume fraction] 40.6 % 40-54 [facility] Laboratory - Chemistry and C hemistry - challengeOrdered By: [facility] on 06-30-2023 ALP [Catalytic activity/Vol] 70 U/L 45-117 [facility] ALT [Catalytic activity/Vol] 18 U/L 16-61 [facility] CO2 [Moles/Vol] 28.0 mmol/L 21.0-32.0 [facility] Globulin (S) [Mass/Vol] 3.5 g/dL 2.2-4.2 [facility] Urea nitrogen/Creatinine [Mass ratio] 22.1 mg/mg 10-20 [facility] Laboratory - Hematology and Cell countsOrdered By: [facility] on 06-30-2023 Erythrocyte distribution width (RBC) [Entitic vol] 48.0 fL 35.1-43.9 [facility] Erythrocyte distribution width (RBC) [Ratio] 13.2 % 11.6-14.6 [facility] Immature granulocytes/100 WBC (Bld) 0.200 % 0.0-0.9 [facility] Comment on above: IG% - Immature Granu locytes (promyelocytes, myelocytes and metamyelocytes) > 1% indicates that a LEFT SHIFT is Present. MCH (RBC) [Entitic mass] 30.8 pg 27.0-32.0 [facility] Nucleated RBC/100 WBC (Bld) [Ratio] 0 % 0-5 [facility] MCHC Auto (RBC) [Mass/Vol]Or dered By: Laurent York on 06-30-2023 MCHC (RBC) [Mass/Vol] 31.3 g/dL 32-36 [facility] Comment on above: Delta: 33.1 on 06/27-1340 No Panel InformationOrdered By: Laurent York on 06-30-2023 Estimated GFR (MDRD) Amer 109 mL/min >60 [facility] Comment on above: GFR Calc Estimated GFR (MDRD) Non-Af Amer 90 mL/min >60 [facility] Comment on above: Non- GFR Calc Thyroid Stimulating Hormone (TSH) 2.11 uIU/mL 0.358-3.74 [facility] Vitamin D 25-Hydroxy 34.1 ng/mL [facility] Comment on above: Vitamin D 25(OH) Sta tus Range Deficiency <20 ng/mL (50nmol/L) Insufficiency 20 - 30 ng/mL (50 - 75 nmol/L) Sufficiency 30 - 100 ng/mL (75 - 250 nmol/L) Toxicity >100 ng/mL (>250 nmol/L) Platelets bldOrdered By: Laurent York on 06-30-2023 Platelets (Bld) [#/Vol] 130 10*3/uL 150-450 [facility] Serum or plasma albumin lien urement (mass/volume)Ordered By: Laurent York on 06-30-2023 Albumin [Mass/Vol] 3.2 g/dL 3.2-5.0 [facility] Serum or plasma albumin/glob ulin mass ratioOrdered By: Laurent York on 06-30-2023 Albumin/Globulin [Mass ratio] 0.9 {ratio} 0.9-2.4 [facility] Serum or plasma calcium lien urement (mass/volume)Ordered By: Laurent York on 06-30-2023 Calcium [Mass/Vol] 8.1 mg/dL 8.5-10.1 [facility] Serum or plasma cholesterol in HDL measurement (mass/volume)Ordered By: Laurent York on 06-30-2023 Cholesterol in HDL [Mass/Vol] 37 mg/dL >40 [facility] Comment on above: The drugs N-Acetylcy steine and Metamizole may falsely depress this assay. Reference Range HDL <40 mg/dL Low HDL Cholesterol HDL >or= 60 mg/dL High HDL Cholesterol Serum or plasma cholesterol in VLDL measurement (mass/volume)Ordered By: Laurent York on 06-30-2023 Cholesterol in VLDL [Mass/Vol] 23 mg/dL 5-40 [facility] Serum or plasma creatinine m easurement (mass/volume)Ordered By: Laurent York on 06-30-2023 Creatinine [Mass/Vol] 0.86 mg/dL 0.70-1.30 [facility] Comment on above: The validity of the calculated GFR & GFRAA in patients over 70 years has not been determined. Clinical correlation is essential. Serum or plasma low density lipoprotein (LDL) cholesterol measurement (mass/volume)Ordered By: Laurent York on 06-30-2023 Cholesterol in LDL [Mass/Vol] 53 mg/dL 0-130 [facility] Serum or plasma urea nitroge n measurement (mass/volume)Ordered By: Laurent York on 06-30-2023 Urea nitrogen [Mass/Vol] 19 mg/dL 7-18 [facility] Thin prep Papanicolaou smear with manual screeningOrdered By: Laurent York on 06-30-2023 Thin prep Papanicolaou smear with manual screening 14 U/L 15-37 [facility] Thin prep Papanicolaou smear with manual screening 4 5-15 [facility] Absolute lymphocyte countOrd ered By: Wang Mccracken on 06-27-2023 Lymphocytes Auto (Unsp spec) [#/Vol] 0.82 10*3/uL 0.83-4.51 [facility] Basophil percentageOrdered B y: Wang Mccracken on 06-27-2023 Basophils/100 WBC (Bld) 0.5 % 0-1 [facility] Chloride [Moles/Vol] 102 mmol/L 98-107 [facility] Eosinophils/100 WBC (Bld) 0.3 % 0-5 [facility] Glucose [Mass/Vol] 98 mg/dL 74-106 [facility] Neutrophils (Bld) [#/Vol] 2.4 10*3/uL 2.0-7.7 [facility] Neutrophils/100 WBC (Bld) 60.4 % 47-70 [facility] Potassium [Moles/Vol] 3.9 mmol/L 3.5-5.1 [facility] Sodium [Moles/Vol] 135 mmol/L 136-145 [facility] WBC (Bld) [#/Vol] 3.9 10*3/uL 4.4-11.0 [facility] Blood erythrocytes count (nu mber/volume)Ordered By: Wang Mccracken on 06-27-2023 RBC (Bld) [#/Vol] 3.95 10*6/uL 4.6-6.2 [facility] Blood hemoglobin measurement (mass/volume)Ordered By: Wang Mccracken on 06-27-2023 Hemoglobin (Bld) [Mass/Vol] 12.5 g/dL 13.0-16. 5 [facility] Blood lymphocytes/100 leukoc ytesOrdered By: Wang Mccracken on 06-27-2023 Lymphocytes/100 WBC (Bld) 20.9 % 19-41 [facility] Blood monocytes/100 leukocyt esOrdered By: Wang Mccracken on 06-27-2023 Monocytes/100 WBC (Bld) 17.6 % 0-10 [facility] Blood platelet mean volumeOr dered By: Wang Mccracken on 06-27-2023 Platelet mean volume (Bld) [Entitic vol] 9.2 fL 6.2-12.0 [facility] Determination of erythrocyte mean corpuscular volume (MCV)Ordered By: Wang Mccracken on 06-27-2023 MCV (RBC) [Entitic vol] 95.7 fL 80-94 [facility] Hematocrit Auto (Bld) [Volum e fraction]Ordered By: Wang Mccracken on 06-27-2023 Hematocrit (Bld) [Volume fraction] 37.8 % 40-54 [facility] Laboratory - Chemistry and C hemistry - challengeOrdered By: Wang Mccracken on 06-27-2023 CO2 [Moles/Vol] 25.0 mmol/L 21.0-32.0 [facility] Urea nitrogen/Creatinine [Mass ratio] 22.6 mg/mg 10-20 [facility] Laboratory - Hematology and Cell countsOrdered By: Wang Mccracken on 06-27-2023 Erythrocyte distribution width (RBC) [Entitic vol] 47.4 fL 35.1-43.9 [facility] Erythrocyte distribution width (RBC) [Ratio] 13.3 % 11.6-14.6 [facility] Immature granulocytes/100 WBC (Bld) 0.300 % 0.0-0.9 [facility] Comment on above: IG% - Immature Granu locytes (promyelocytes, myelocytes and metamyelocytes) > 1% indicates that a LEFT SHIFT is Present. MCH (RBC) [Entitic mass] 31.6 pg 27.0-32.0 [facility] Nucleated RBC/100 WBC (Bld) [Ratio] 0 % 0-5 [facility] MCHC Auto (RBC) [Mass/Vol]Or dered By: Wang Mccracken on 06-27-2023 MCHC (RBC) [Mass/Vol] 33.1 g/dL 32-36 [facility] No Panel InformationOrdered By: Wang Mccracken on 06-27-2023 Estimated Creatinine Clearance Calc 80.01 ml/min [facility] Estimated GFR (MDRD) Amer 119 mL/min >60 [facility] Comment on above: GFR Calc Estimated GFR (MDRD) Non-Af Amer 98 mL/min >60 [facility] Comment on above: Non- GFR Calc Platelets bldOrdered By: Elva Mccracken on 06-27-2023 Platelets (Bld) [#/Vol] 110 10*3/uL 150-450 [facility] SARS-CoV-2 (COVID-19) Ag IA. rapid Ql (Resp)Ordered By: Wang Mccracken on 06-27-2023 SARS-CoV-2 Antigen (Rapid) SARS-CoV-2 (COVID 19) [facility] SARS-CoV-2 Antigen (Rapid) SARS-CoV-2 (COVID 19) [facility] Serum or plasma calcium lien urement (mass/volume)Ordered By: Wang Mccracken on 06-27-2023 Calcium [Mass/Vol] 8.3 mg/dL 8.5-10.1 [facility] Serum or plasma creatinine m easurement (mass/volume)Ordered By: Wang Mccracken on 06-27-2023 Creatinine [Mass/Vol] 0.80 mg/dL 0.70-1.30 [facility] Comment on above: The validity of the calculated GFR & GFRAA in patients over 70 years has not been determined. Clinical correlation is essential. Serum or plasma urea nitroge n measurement (mass/volume)Ordered By: Wang Mccracken on 06-27-2023 Urea nitrogen [Mass/Vol] 18 mg/dL 7-18 [facility] Thin prep Papanicolaou smear with manual screeningOrdered By: Wang Mccracken on 06-27-2023 Thin prep Papanicolaou smear with manual screening 8 5-15 [facility] Basophil percentageOrdered B y: Awais Hale on 05-22-2023 Bilirubin [Mass/Vol] 0.30 mg/dL 0.20-1.00 [facility] Comment on above: For patients on eltr ombopag therapy, use of Dimension Odem TBIL is not recommended. Protein [Mass/Vol] 7.3 g/dL 6.4-8.2 [facility] Direct bilirubinOrdered By: Awais Hale on 05-22-2023 Bilirubin.direct [Mass/Vol] 0.10 mg/dL 0.00-0.3 0 [facility] Laboratory - Chemistry and C hemistry - challengeOrdered By: Awais Hale on 05-22-2023 ALP [Catalytic activity/Vol] 82 U/L 45-117 [facility] ALT [Catalytic activity/Vol] 20 U/L 16-61 [facility] Globulin (S) [Mass/Vol] 3.6 g/dL 2.2-4.2 [facility] Serum or plasma albumin lien urement (mass/volume)Ordered By: Awais Hale on 05-22-2023 Albumin [Mass/Vol] 3.7 g/dL 3.2-5.0 [facility] Thin prep Papanicolaou smear with manual screeningOrdered By: Awais Hale on 05-22-2023 Thin prep Papanicolaou smear with manual screening 16 U/L 15-37 [facility] Bacteria identified Respirat ory culture Nom (Unsp spec)Ordered By: Steffen Oseguera on 02-20-2023 Respiratory Culture Yeast, not Ya albicans [facility] Respiratory Culture Streptococcus pneumoniae [facility] Gram stain for investigation of transfusion reactionOrdered By: Steffen Oseguera on 02-20-2023 Microscopic observation Gram stain Nom (Unsp spec) [facility] Absolute lymphocyte countOrd ered By: Steffen Oseguera on 02-05-2023 Lymphocytes Auto (Unsp spec) [#/Vol] 1.65 10*3/uL 0.83-4.51 [facility] Atypical perinuclear antineu trophil cytoplasmic antibodies measurementOrdered By: Steffen Oseguera on 02-05-2023 Neutrophil cytoplasmic Ab.perinuclear.atypical IF (S) [Titer] <1:20 titer Neg:<1:20 [facility] Comment on above: The atypical pANCA p attern has been observed in asignificant percentage of patients with ulcerative colitis,primary sclerosing cholangitis and autoimmune hepatitis. Basophil percentageOrdered B y: Steffen Oseguera on 02-05-2023 Basophil percentage Not Reportable [facility] Basophils/100 WBC (Bld) 0.7 % 0-1 [facility] Eosinophils/100 WBC (Bld) 3.1 % 0-5 [facility] Neutrophils (Bld) [#/Vol] 3.5 10*3/uL 2.0-7.7 [facility] Neutrophils/100 WBC (Bld) 58.0 % 47-70 [facility] WBC (Bld) [#/Vol] 6.1 10*3/uL 4.4-11.0 [facility] Blood erythrocytes count (nu mber/volume)Ordered By: Steffen Oseguera on 02-05-2023 RBC (Bld) [#/Vol] 4.11 10*6/uL 4.6-6.2 [facility] Blood hemoglobin measurement (mass/volume)Ordered By: Steffen Oseguera on 02-05-2023 Hemoglobin (Bld) [Mass/Vol] 13.0 g/dL 13.0-16. 5 [facility] Blood lymphocytes/100 leukoc ytesOrdered By: Steffen Oseguera on 02-05-2023 Lymphocytes/100 WBC (Bld) 27.3 % 19-41 [facility] Blood monocytes/100 leukocyt esOrdered By: Steffen Oseguera on 02-05-2023 Monocytes/100 WBC (Bld) 10.4 % 0-10 [facility] Blood platelet mean volumeOr dered By: Steffen Oseguera on 02-05-2023 Platelet mean volume (Bld) [Entitic vol] 9.4 fL 6.2-12.0 [facility] Determination of erythrocyte mean corpuscular volume (MCV)Ordered By: Steffen Oseguera on 02-05-2023 MCV (RBC) [Entitic vol] 98.3 fL 80-94 [facility] Hematocrit Auto (Bld) [Volum e fraction]Ordered By: Steffen Oseguera on 02-05-2023 Hematocrit (Bld) [Volume fraction] 40.4 % 40-54 [facility] Laboratory - Hematology and Cell countsOrdered By: Steffen Oseguera on 02-05-2023 Erythrocyte distribution width (RBC) [Entitic vol] 47.1 fL 35.1-43.9 [facility] Erythrocyte distribution width (RBC) [Ratio] 13.2 % 11.6-14.6 [facility] Immature granulocytes/100 WBC (Bld) 0.500 % 0.0-0.9 [facility] Comment on above: IG% - Immature Granu locytes (promyelocytes, myelocytes and metamyelocytes) > 1% indicates that a LEFT SHIFT is Present. MCH (RBC) [Entitic mass] 31.6 pg 27.0-32.0 [facility] Nucleated RBC/100 WBC (Bld) [Ratio] 0 % 0-5 [facility] MCHC Auto (RBC) [Mass/Vol]Or dered By: Steffen Oseguera on 02-05-2023 MCHC (RBC) [Mass/Vol] 32.2 g/dL 32-36 [facility] No Panel InformationOrdered By: Steffen Oseguera on 02-05-2023 Anti-Nuclear Antibody Screen Negative Negative [facility] Comment on above: Performed at: [address] [id number] Director: Ranjeet Henderson PhD, Phone: [phone] [employer] Antibody Not Reportable [facility] Immunoglobulin E 37 IU/mL 6-495 [facility] Comment on above: Performed at: [facility] [id number] [place], [place] [id number] Director: Ranjeet Henderson PhD, Phone: [phone] at: - [facility] [id number] Director: Enrike David MD, Phone: [phone] [employer] Antibody Not Reportable [facility] Platelets bldOrdered By: Steffen Oseguera on 02-05-2023 Platelets (Bld) [#/Vol] 164 10*3/uL 150-450 [facility] Qualitative QuantiFERON-TB g old in tube testOrdered By: Steffen Oseguera on 02-05-2023 M. tuberculosis tuberculin stim IFN-g Ql (Bld) 0.22 IU/mL . [facility] Serum DNA double strand anti body assay (units/volume)Ordered By: Steffen Oseguera on 02-05-2023 DNA double strand Ab Qn (S) Not Reportable [facility] Serum Leila-1 antibody assay (u nits/volume)Ordered By: Steffen Oseguera on 02-05-2023 Leila-1 extractable nuclear Ab Qn (S) Not Reportable [facility] Serum Scl-70 extractable nuc lear antibody assay (units/volume)Ordered By: Steffen Oseguera on 02-05-2023 SCL-70 extractable nuclear Ab Qn (S) Not Reportable [facility] Serum Das extractable nucl ear antibody detectionOrdered By: Steffen Oseguera on 02-05-2023 Das extractable nuclear Ab Ql (S) Not Reportable [facility] Serum classic neutrophil cyt oplasmic antibody assay (units/volume)Ordered By: Steffen Oseguera on 02-05-2023 Neutrophil cytoplasmic Ab.classic Qn (S) <1:20 titer Neg:<1:20 [facility] Serum perinuclear neutrophil cytoplasmic antibody titer by immunofluorescenceOrdered By: Steffen Oseguera on 02-05-2023 Neutrophil cytoplasmic Ab.perinuclear IF (S) [Titer] <1:20 titer Neg:<1:20 [facility] Comment on above: The presence of posi tive fluorescence exhibiting P-ANCA orC-ANCA patterns alone is not specific for the diagnosis ofWegener's Granulomatosis (WG) or microscopic polyangiitis.Decisions about treatment should not be based solely onANCA IFA results. The [employer] Consensusrecommends follow up testing of positive sera with both MS-3 and MPO-ANCA enzyme immunoassays. As many as 5% serumsamples are positive only by EIA. Ref. AM J Clin [id number];111:[id number]. Serum rheumatoid factor dete ctionOrdered By: Steffen Oseguera on 02-05-2023 Rheumatoid factor Ql (S) < 10.0 IU/mL <15 [facility] Thin prep Papanicolaou smear with manual screeningOrdered By: Steffen Oseguera on 02-05-2023 Thin prep Papanicolaou smear with manual screening Comment . [facility] Comment on above: QuantiFERON-TB Gold Plus is a qualitative indirect test forM tuberculosis infection (including disease) and isintended for use in conjunction with risk assessment,radiography, and other medical and diagnostic evaluations.The QuantiFERON-TB Gold Plus result is determined bysubtracting the Nil value from either TB antigen (Ag)value. The Mitogen tube serves as a control for the test. Thin prep Papanicolaou smear with manual screening 0.10 IU/mL . [facility] Thin prep Papanicolaou smear with manual screening 0.07 IU/mL . [facility] Thin prep Papanicolaou smear with manual screening > 10.00 IU/mL . [facility] Thin prep Papanicolaou smear with manual screening Negative Negative [facility] Comment on above: No response to M tub erculosis antigens detected.Infection with M tuberculosis is unlikely, but high riskindividuals should be considered for additional testing(ATS/IDSA/CDC Clinical Practice Guidelines, 2017). Thereference range is an Antigen minus Nil result of <0.35IU/mL.The specimen received for QuantiFERON testing was incubatedby the ordering institution. Specific procedures outlinedin our Directory of Services and in the package insert forthe QuantiFERON Gold (In Tube) test must be followed toenable for proper stimulation of cells for the productionof interferon gamma. Chemiluminescence immunoassaymethodology Absolute lymphocyte countOrd ered By: Dr. York on 01-08-2023 Lymphocytes Auto (Unsp spec) [#/Vol] 1.61 10*3/uL 0.83-4.51 [facility] Basophil percentageOrdered B y: Dr. York on 01-08-2023 Basophils/100 WBC (Bld) 0.9 % 0-1 [facility] Chloride [Moles/Vol] 108 mmol/L 98-107 [facility] Eosinophils/100 WBC (Bld) 2.2 % 0-5 [facility] Glucose [Mass/Vol] 110 mg/dL 74-106 [facility] Comment on above: Fasting Glucose resu lt from 100 to 125 mg/dL suggests IMPAIRED HOMEOSTASIS per A.D.A. criteria. Neutrophils (Bld) [#/Vol] 3.4 10*3/uL 2.0-7.7 [facility] Neutrophils/100 WBC (Bld) 58.9 % 47-70 [facility] Potassium [Moles/Vol] 4.2 mmol/L 3.5-5.1 [facility] Sodium [Moles/Vol] 141 mmol/L 136-145 [facility] WBC (Bld) [#/Vol] 5.8 10*3/uL 4.4-11.0 [facility] Blood erythrocytes count (nu mber/volume)Ordered By: Dr. York on 01-08-2023 RBC (Bld) [#/Vol] 4.13 10*6/uL 4.6-6.2 [facility] Blood hemoglobin measurement (mass/volume)Ordered By: Dr. York on 01-08-2023 Hemoglobin (Bld) [Mass/Vol] 13.1 g/dL 13.0-16. 5 [facility] Blood lymphocytes/100 leukoc ytesOrdered By: Dr. York on 01-08-2023 Lymphocytes/100 WBC (Bld) 27.6 % 19-41 [facility] Blood monocytes/100 leukocyt esOrdered By: Dr. York on 01-08-2023 Monocytes/100 WBC (Bld) 10.1 % 0-10 [facility] Blood platelet mean volumeOr dered By: Dr. York on 01-08-2023 Platelet mean volume (Bld) [Entitic vol] 9.5 fL 6.2-12.0 [facility] Determination of erythrocyte mean corpuscular volume (MCV)Ordered By: Dr. York on 01-08-2023 MCV (RBC) [Entitic vol] 96.9 fL 80-94 [facility] Hematocrit Auto (Bld) [Volum e fraction]Ordered By: Dr. York on 01-08-2023 Hematocrit (Bld) [Volume fraction] 40.0 % 40-54 [facility] Laboratory - Chemistry and C hemistry - challengeOrdered By: Dr. York on 01-08-2023 CK [Catalytic activity/Vol] 117 U/L 39-308 [facility] CO2 [Moles/Vol] 25.0 mmol/L 21.0-32.0 [facility] Myoglobin [Mass/Vol] 49 ng/mL 28-72 [facility] Comment on above: Performed at: [address] [id number] Director: Ranjeet Henderson PhD, Phone: [phone] Urea nitrogen/Creatinine [Mass ratio] 29.6 mg/mg 10-20 [facility] Laboratory - Hematology and Cell countsOrdered By: Dr. York on 01-08-2023 Erythrocyte distribution width (RBC) [Entitic vol] 45.2 fL 35.1-43.9 [facility] Erythrocyte distribution width (RBC) [Ratio] 12.8 % 11.6-14.6 [facility] Immature granulocytes/100 WBC (Bld) 0.300 % 0.0-0.9 [facility] Comment on above: IG% - Immature Granu locytes (promyelocytes, myelocytes and metamyelocytes) > 1% indicates that a LEFT SHIFT is Present. MCH (RBC) [Entitic mass] 31.7 pg 27.0-32.0 [facility] Nucleated RBC/100 WBC (Bld) [Ratio] 0 % 0-5 [facility] MCHC Auto (RBC) [Mass/Vol]Or dered By: Dr. York on 01-08-2023 MCHC (RBC) [Mass/Vol] 32.8 g/dL 32-36 [facility] No Panel InformationOrdered By: Dr. York on 01-08-2023 Estimated GFR (MDRD) Amer 106 mL/min >60 [facility] Comment on above: GFR Calc Estimated GFR (MDRD) Non-Af Amer 88 mL/min >60 [facility] Comment on above: Non- GFR Calc Troponin I High Sensitivity 10 pg/mL 3.0-78.0 [facility] Comment on above: Please Note: New Dar[place] t Units and Gender Specific Reference Ranges. For more information see Policy Stat Procedure Odem High Sensitivity Troponin (TNIH) and attachments. Platelets bldOrdered By: Dr. York on 01-08-2023 Platelets (Bld) [#/Vol] 167 10*3/uL 150-450 [facility] Serum or plasma calcium lien urement (mass/volume)Ordered By: Dr. York on 01-08-2023 Calcium [Mass/Vol] 8.9 mg/dL 8.5-10.1 [facility] Serum or plasma creatinine m easurement (mass/volume)Ordered By: Dr. York on 01-08-2023 Creatinine [Mass/Vol] 0.88 mg/dL 0.70-1.30 [facility] Comment on above: The validity of the calculated GFR & GFRAA in patients over 70 years has not been determined. Clinical correlation is essential. Serum or plasma urea nitroge n measurement (mass/volume)Ordered By: Dr. York on 01-08-2023 Urea nitrogen [Mass/Vol] 26 mg/dL 7-18 [facility] Thin prep Papanicolaou smear with manual screeningOrdered By: Dr. York on 01-08-2023 Thin prep Papanicolaou smear with manual screening 8 5-15 [facility] Absolute lymphocyte counton 06-21-2022 Lymphocytes Auto (Unsp spec) [#/Vol] 2.04 10*3/uL 0.83-4.51 [facility] Work Phone: Basophil percentageon 2021 Basophils/100 WBC (Bld) 0.6 % 0-1 [facility] Work Phone: Bilirubin [Mass/Vol] 0.40 mg/dL 0.20-1.00 [facility] Work Phone: Comment on above: For patients on eltr ombopag therapy, use of Dimension Odem TBIL is not recommended. Chloride [Moles/Vol] 105 mmol/L 98-107 [facility] Work Phone: [phone] Cholesterol [Mass/Vol] 160 mg/dL <200 [facility] Work Phone: [phone] Comment on above: <200 mg/dL Desirable 200-240 mg/dL Borderline >240 mg/dL High Risk Eosinophils/100 WBC (Bld) 1.5 % 0-5 [facility] Work Phone: [phone] Glucose [Mass/Vol] 124 mg/dL 74-106 [facility] Work Phone: [phone] Comment on above: Fasting Glucose resu lt from 100 to 125 mg/dL suggests IMPAIRED HOMEOSTASIS per A.D.A. criteria. Neutrophils (Bld) [#/Vol] 5.9 10*3/uL 2.0-7.7 [facility] Work Phone: [phone] Neutrophils/100 WBC (Bld) 66.6 % 47-70 [facility] Work Phone: [phone] Potassium [Moles/Vol] 4.4 mmol/L 3.5-5.1 [facility] Work Phone: [phone] Protein [Mass/Vol] 7.2 g/dL 6.4-8.2 [facility] Work Phone: [phone] Sodium [Moles/Vol] 137 mmol/L 136-145 [facility] Work Phone: [phone] Triglyceride [Mass/Vol] 112 mg/dL <199 [facility] Work Phone: [phone] Comment on above: The drugs N-Acetylcy steine and Metamizole may falsely depress this assay.Serum Triglycerides Reference Interval Normal <150 mg/dL Borderline high 150 - 199 mg/dL High 200 - 499 mg/dL Very High > or = 500 mg/dL WBC (Bld) [#/Vol] 8.9 10*3/uL 4.4-11.0 [facility] Work Phone: [phone] Blood erythrocytes count (nu mber/volume)on 10-28-2022 RBC (Bld) [#/Vol] 4.30 10*6/uL 4.6-6.2 [facility] Phone: [phone] Blood hemoglobin measurement (mass/volume)on 06-21-2022 Hemoglobin (Bld) [Mass/Vol] 13.7 g/dL 13.0-16. 5 [facility] Work Phone: Blood lymphocytes/100 leukoc yteson 06-21-2022 Lymphocytes/100 WBC (Bld) 23.1 % 19-41 [facility] Work Phone: Blood monocytes/100 leukocyt eson 06-21-2022 Monocytes/100 WBC (Bld) 7.9 % 0-10 [facility] Work Phone: Blood platelet mean volumeon 06-21-2022 Platelet mean volume (Bld) [Entitic vol] 10.1 fL 6.2-12.0 [facility] Work Phone: [phone] Determination of erythrocyte mean corpuscular volume (MCV)on 06-21-2022 MCV (RBC) [Entitic vol] 96.5 fL 80-94 [facility] Work Phone: [phone] Hematocrit Auto (Bld) [Volum e fraction]on 06-21-2022 Hematocrit (Bld) [Volume fraction] 41.5 % 40-54 [facility] Work Phone: [phone] Laboratory - Chemistry and C hemistry - challengeon 06-21-2022 ALP [Catalytic activity/Vol] 79 U/L 45-117 [facility] Work Phone: ALT [Catalytic activity/Vol] 19 U/L 16-61 [facility] Work Phone: CO2 [Moles/Vol] 26.0 mmol/L 21.0-32.0 [facility] Work Phone: Globulin (S) [Mass/Vol] 3.5 g/dL 2.2-4.2 [facility] Work Phone: [phone] Urea nitrogen/Creatinine [Mass ratio] 24.1 mg/mg 10-20 [facility] Work Phone: Laboratory - Hematology and Cell countson 06-21-2022 Erythrocyte distribution width (RBC) [Entitic vol] 47.9 fL 35.1-43.9 [facility] Work Phone: Erythrocyte distribution width (RBC) [Ratio] 13.3 % 11.6-14.6 [facility] Work Phone: Immature granulocytes/100 WBC (Bld) 0.300 % 0.0-0.9 [facility] Work Phone: Comment on above: IG% - Immature Granu locytes (promyelocytes, myelocytes and metamyelocytes) > 1% indicates that a LEFT SHIFT is Present. MCH (RBC) [Entitic mass] 31.9 pg 27.0-32.0 [facility] Work Phone: Nucleated RBC/100 WBC (Bld) [Ratio] 0 % 0-5 [facility] Work Phone: MCHC Auto (RBC) [Mass/Vol]on 06-21-2022 MCHC (RBC) [Mass/Vol] 33.0 g/dL 32-36 [facility] Work Phone: No Panel Informationon 06-21 Estimated GFR (MDRD) Amer 81 mL/min >60 [facility] Work Phone: Comment on above: GFR Calc Estimated GFR (MDRD) Non-Af Amer 67 mL/min >60 [facility] Work Phone: Comment on above: Non- GFR Calc Prostate Specific Antigen Screen 0.30 ng/mL 0.00-4.00 [facility] Work Phone: Comment on above: This test was perfor med using the TPSA assay method for the[facility] [place] chemistry system. Values obtained with differentassay methods cannot be used interchangably.When changing PSA assays in the course of monitoring apatient, additional sequential testing should be carriedout to confirm baseline values. Thyroid Stimulating Hormone (TSH) 2.21 uIU/mL 0.358-3.74 [facility] Work Phone: Vitamin D 25-Hydroxy 23.8 ng/mL [facility] Work Phone: Comment on above: Vitamin D 25(OH) Sta tus Range Deficiency <20 ng/mL (50nmol/L) Insufficiency 20 - 30 ng/mL (50 - 75 nmol/L) Sufficiency 30 - 100 ng/mL (75 - 250 nmol/L) Toxicity >100 ng/mL (>250 nmol/L) Platelets bldon 06-21-2022 Platelets (Bld) [#/Vol] 184 10*3/uL 150-450 [facility] Work Phone: Serum or plasma albumin lien urement (mass/volume)on 06-21-2022 Albumin [Mass/Vol] 3.7 g/dL 3.2-5.0 [facility] Work Phone: Serum or plasma albumin/glob ulin mass ratioon 06-21-2022 Albumin/Globulin [Mass ratio] 1.1 {ratio} 0.9-2.4 [facility] Work Phone: Serum or plasma calcium lien urement (mass/volume)on 06-21-2022 Calcium [Mass/Vol] 8.8 mg/dL 8.5-10.1 [facility] Work Phone: Serum or plasma cholesterol in HDL measurement (mass/volume)on 06-21-2022 Cholesterol in HDL [Mass/Vol] 41 mg/dL >40 [facility] Work Phone: Comment on above: The drugs N-Acetylcy steine and Metamizole may falsely depress this assay. Reference Range HDL <40 mg/dL Low HDL Cholesterol HDL >or= 60 mg/dL High HDL Cholesterol Serum or plasma cholesterol in VLDL measurement (mass/volume)on 06-21-2022 Cholesterol in VLDL [Mass/Vol] 22 mg/dL 5-40 [facility] Work Phone: Serum or plasma creatinine m easurement (mass/volume)on 06-21-2022 Creatinine [Mass/Vol] 1.12 mg/dL 0.70-1.30 [facility] Work Phone: Comment on above: The validity of the calculated GFR & GFRAA in patients over 70 years has not been determined. Clinical correlation is essential. Serum or plasma low density lipoprotein (LDL) cholesterol measurement (mass/volume)on 06-21-2022 Cholesterol in LDL [Mass/Vol] 97 mg/dL 0-130 [facility] Work Phone: Serum or plasma urea nitroge n measurement (mass/volume)on 06-21-2022 Urea nitrogen [Mass/Vol] 27 mg/dL 7-18 [facility] Work Phone: Thin prep Papanicolaou smear with manual screeningon 06-21-2022 Thin prep Papanicolaou smear with manual screening 15 U/L 15-37 [facility] Work Phone: Thin prep Papanicolaou smear with manual screening 6 5-15 [facility] Work Phone: Absolute lymphocyte counton 12-12-2021 Lymphocytes Auto (Unsp spec) [#/Vol] 1.92 10*3/uL 0.83-4.51 [facility] Work Phone: Basophil percentageon 2021 Basophils/100 WBC (Bld) 0.8 % 0-1 [facility] Work Phone: Bilirubin [Mass/Vol] 0.40 mg/dL 0.20-1.00 [facility] Work Phone: Comment on above: For patients on eltr ombopag therapy, use of Dimension Odem TBIL is not recommended. Chloride [Moles/Vol] 105 mmol/L 98-107 [facility] Work Phone: Cholesterol [Mass/Vol] 172 mg/dL <200 [facility] Work Phone: Comment on above: <200 mg/dL Desirable 200-240 mg/dL Borderline >240 mg/dL High Risk Eosinophils/100 WBC (Bld) 4.7 % 0-5 [facility] Work Phone: Glucose [Mass/Vol] 112 mg/dL 74-106 [facility] Work Phone: Comment on above: Fasting Glucose resu lt from 100 to 125 mg/dL suggests IMPAIRED HOMEOSTASIS per A.D.A. criteria. Neutrophils (Bld) [#/Vol] 4.3 10*3/uL 2.0-7.7 [facility] Work Phone: Neutrophils/100 WBC (Bld) 58.0 % 47-70 [facility] Work Phone: [phone] Potassium [Moles/Vol] 4.5 mmol/L 3.5-5.1 [facility] Work Phone: [phone] Protein [Mass/Vol] 7.1 g/dL 6.4-8.2 [facility] Work Phone: [phone] Sodium [Moles/Vol] 138 mmol/L 136-145 [facility] Work Phone: Triglyceride [Mass/Vol] 147 mg/dL [facility] Work Phone: Comment on above: The drugs N-Acetylcy steine and Metamizole may falsely depress this assay.Serum Triglycerides Reference Interval Normal <150 mg/dL Borderline high 150 - 199 mg/dL High 200 - 499 mg/dL Very High > or = 500 mg/dL WBC (Bld) [#/Vol] 7.4 10*3/uL 4.4-11.0 [facility] Work Phone: [phone] Blood erythrocytes count (nu mber/volume)on 12-12-2021 RBC (Bld) [#/Vol] 4.74 10*6/uL 4.6-6.2 [facility] Work Phone: [phone] Blood hemoglobin measurement (mass/volume)on 12-12-2021 Hemoglobin (Bld) [Mass/Vol] 14.5 g/dL 13.0-16. 5 [facility] Work Phone: Blood lymphocytes/100 leukoc yteson 12-12-2021 Lymphocytes/100 WBC (Bld) 25.8 % 19-41 [facility] Work Phone: Blood monocytes/100 leukocyt eson 12-12-2021 Monocytes/100 WBC (Bld) 10.3 % 0-10 [facility] Work Phone: Blood platelet mean volumeon 12-12-2021 Platelet mean volume (Bld) [Entitic vol] 10.0 fL 6.2-12.0 [facility] Work Phone: [phone] Determination of erythrocyte mean corpuscular volume (MCV)on 12-12-2021 MCV (RBC) [Entitic vol] 93.0 fL 80-94 [facility] Work Phone: [phone] Hematocrit Auto (Bld) [Volum e fraction]on 12-12-2021 Hematocrit (Bld) [Volume fraction] 44.1 % 40-54 [facility] Work Phone: [phone] Laboratory - Chemistry and C hemistry - challengeon 12-12-2021 ALP [Catalytic activity/Vol] 80 U/L 45-117 [facility] Work Phone: [phone] ALT [Catalytic activity/Vol] 26 U/L 16-61 [facility] Work Phone: [phone] CO2 [Moles/Vol] 24.0 mmol/L 21.0-32.0 [facility] Work Phone: [phone] Globulin (S) [Mass/Vol] 3.5 g/dL 2.2-4.2 [facility] Work Phone: [phone] Urea nitrogen/Creatinine [Mass ratio] 25.7 mg/mg 10-20 [facility] Work Phone: [phone] Laboratory - Hematology and Cell countson 12-12-2021 Erythrocyte distribution width (RBC) [Entitic vol] 46.6 fL 35.1-43.9 [facility] Work Phone: [phone] Erythrocyte distribution width (RBC) [Ratio] 13.8 % 11.6-14.6 [facility] Work Phone: [phone] Immature granulocytes/100 WBC (Bld) 0.400 % 0.0-0.9 [facility] Work Phone: [phone] Comment on above: IG% - Immature Granu locytes (promyelocytes, myelocytes and metamyelocytes) > 1% indicates that a LEFT SHIFT is Present. MCH (RBC) [Entitic mass] 30.6 pg 27.0-32.0 [facility] Work Phone: Nucleated RBC/100 WBC (Bld) [Ratio] 0 % 0-5 [facility] Work Phone: MCHC Auto (RBC) [Mass/Vol]on 12-12-2021 MCHC (RBC) [Mass/Vol] 32.9 g/dL 32-36 [facility] Work Phone: No Panel Informationon 12-12 Estimated GFR (MDRD) Amer 80 mL/min >60 [facility] Work Phone: Comment on above: GFR Calc Estimated GFR (MDRD) Non-Af Amer 66 mL/min >60 [facility] Work Phone: Comment on above: Non- GFR Calc Thyroid Stimulating Hormone (TSH) 2.61 uIU/mL 0.358-3.74 [facility] Work Phone: Vitamin D 25-Hydroxy 19.4 ng/mL [facility] Work Phone: Comment on above: Vitamin D 25(OH) Sta tus Range Deficiency <20 ng/mL (50nmol/L) Insufficiency 20 - 30 ng/mL (50 - 75 nmol/L) Sufficiency 30 - 100 ng/mL (75 - 250 nmol/L) Toxicity >100 ng/mL (>250 nmol/L) Platelets bldon 12-12-2021 Platelets (Bld) [#/Vol] 167 10*3/uL 150-450 [facility] Work Phone: Serum or plasma albumin lien urement (mass/volume)on 12-12-2021 Albumin [Mass/Vol] 3.6 g/dL 3.2-5.0 [facility] Work Phone: Serum or plasma albumin/glob ulin mass ratioon 12-12-2021 Albumin/Globulin [Mass ratio] 1.0 {ratio} 0.9-2.4 [facility] Work Phone: Serum or plasma calcium lien urement (mass/volume)on 12-12-2021 Calcium [Mass/Vol] 8.3 mg/dL 8.5-10.1 [facility] Work Phone: Serum or plasma cholesterol in HDL measurement (mass/volume)on 12-12-2021 Cholesterol in HDL [Mass/Vol] 42 mg/dL [facility] Work Phone: Comment on above: The drugs N-Acetylcy steine and Metamizole may falsely depress this assay. Reference Range HDL <40 mg/dL Low HDL Cholesterol HDL >or= 60 mg/dL High HDL Cholesterol Serum or plasma cholesterol in VLDL measurement (mass/volume)on 12-12-2021 Cholesterol in VLDL [Mass/Vol] 29 mg/dL 5-40 [facility] Work Phone: Serum or plasma creatinine m easurement (mass/volume)on 12-12-2021 Creatinine [Mass/Vol] 1.13 mg/dL 0.70-1.30 [facility] Work Phone: Comment on above: The validity of the calculated GFR & GFRAA in patients over 70 years has not been determined. Clinical correlation is essential. Serum or plasma low density lipoprotein (LDL) cholesterol measurement (mass/volume)on 12-12-2021 Cholesterol in LDL [Mass/Vol] 101 mg/dL 0-130 [facility] Work Phone: Serum or plasma urea nitroge n measurement (mass/volume)on 12-12-2021 Urea nitrogen [Mass/Vol] 29 mg/dL 7-18 [facility] Work Phone: Thin prep Papanicolaou smear with manual screeningon 12-12-2021 Thin prep Papanicolaou smear with manual screening 14 U/L 15-37 [facility] Work Phone: Thin prep Papanicolaou smear with manual screening 9 5-15 [facility] Work Phone: Absolute lymphocyte counton 11-16-2021 Lymphocytes Auto (Unsp spec) [#/Vol] 1.19 10*3/uL 0.83-4.51 [facility] Work Phone: Basophil percentageon 2021 Basophils/100 WBC (Bld) 0.6 % 0-1 [facility] Work Phone: Chloride [Moles/Vol] 110 mmol/L 98-107 [facility] Work Phone: Eosinophils/100 WBC (Bld) 4.9 % 0-5 [facility] Work Phone: Glucose [Mass/Vol] 110 mg/dL 74-106 [facility] Work Phone: Comment on above: Fasting Glucose resu lt from 100 to 125 mg/dL suggests IMPAIRED HOMEOSTASIS per A.D.A. criteria. Neutrophils (Bld) [#/Vol] 4.7 10*3/uL 2.0-7.7 [facility] Work Phone: Neutrophils/100 WBC (Bld) 66.2 % 47-70 [facility] Work Phone: Potassium [Moles/Vol] 4.5 mmol/L 3.5-5.1 [facility] Work Phone: Sodium [Moles/Vol] 139 mmol/L 136-145 [facility] Work Phone: WBC (Bld) [#/Vol] 7.1 10*3/uL 4.4-11.0 [facility] Work Phone: Blood erythrocytes count (nu mber/volume)on 11-16-2021 RBC (Bld) [#/Vol] 4.22 10*6/uL 4.6-6.2 [facility] Work Phone: Blood hemoglobin measurement (mass/volume)on 11-16-2021 Hemoglobin (Bld) [Mass/Vol] 13.4 g/dL 13.0-16. 5 [facility] Work Phone: Blood lymphocytes/100 leukoc yteson 11-16-2021 Lymphocytes/100 WBC (Bld) 16.7 % 19-41 [facility] Work Phone: Blood monocytes/100 leukocyt eson 11-16-2021 Monocytes/100 WBC (Bld) 11.2 % 0-10 [facility] Work Phone: [phone] Blood platelet mean volumeon 11-16-2021 Platelet mean volume (Bld) [Entitic vol] 8.8 fL 6.2-12.0 [facility] Work Phone: [phone] Determination of erythrocyte mean corpuscular volume (MCV)on 11-16-2021 MCV (RBC) [Entitic vol] 93.4 fL 80-94 [facility] Work Phone: Hematocrit Auto (Bld) [Volum e fraction]on 11-16-2021 Hematocrit (Bld) [Volume fraction] 39.4 % 40-54 [facility] Work Phone: [phone] Laboratory - Chemistry and C hemistry - challengeon 11-16-2021 CO2 [Moles/Vol] 25.0 mmol/L 21.0-32.0 [facility] Work Phone: [phone] Urea nitrogen/Creatinine [Mass ratio] 26.0 mg/mg 10-20 [facility] Work Phone: Laboratory - Hematology and Cell countson 11-16-2021 Erythrocyte distribution width (RBC) [Entitic vol] 44.5 fL 35.1-43.9 [facility] Work Phone: [phone] Erythrocyte distribution width (RBC) [Ratio] 12.9 % 11.6-14.6 [facility] Work Phone: [phone] Immature granulocytes/100 WBC (Bld) 0.400 % 0.0-0.9 [facility] Work Phone: [phone] Comment on above: IG% - Immature Granu locytes (promyelocytes, myelocytes and metamyelocytes) > 1% indicates that a LEFT SHIFT is Present. MCH (RBC) [Entitic mass] 31.8 pg 27.0-32.0 [facility] Work Phone: [phone] Nucleated RBC/100 WBC (Bld) [Ratio] 0 % 0-5 [facility] Work Phone: MCHC Auto (RBC) [Mass/Vol]on 11-16-2021 MCHC (RBC) [Mass/Vol] 34.0 g/dL 32-36 [facility] Work Phone: No Panel Informationon 11-16 Estimated GFR (MDRD) Amer 92 mL/min >60 [facility] Work Phone: Comment on above: GFR Calc Estimated GFR (MDRD) Non-Af Amer 76 mL/min >60 [facility] Work Phone: Comment on above: Non- GFR Calc Platelets bldon 11-16-2021 Platelets (Bld) [#/Vol] 240 10*3/uL 150-450 [facility] Work Phone: Serum or plasma calcium lien urement (mass/volume)on 11-16-2021 Calcium [Mass/Vol] 8.6 mg/dL 8.5-10.1 [facility] Work Phone: Serum or plasma creatinine m easurement (mass/volume)on 11-16-2021 Creatinine [Mass/Vol] 1.00 mg/dL 0.70-1.30 [facility] Work Phone: Comment on above: The validity of the calculated GFR & GFRAA in patients over 70 years has not been determined. Clinical correlation is essential. Serum or plasma urea nitroge n measurement (mass/volume)on 11-16-2021 Urea nitrogen [Mass/Vol] 26 mg/dL 7-18 [facility] Work Phone: Thin prep Papanicolaou smear with manual screeningon 11-16-2021 Thin prep Papanicolaou smear with manual screening 4 5-15 [facility] Work Phone: Basophil percentageon 2021 Creatinine [Mass/Vol] 0.9 mg/dL 0.70-1.30 [facility] Work Phone: No Panel Informationon 09-10 Bedside Estimated GFR (eGFR) > 60.0000 mL/min >60 [facility] Work Phone: Vital Signs Date Time Vital Sign Value Performing Clinician Katherine del castillo 02-03-2025 20:00-0400 Diastolic blood pressure 102 mm[Hg] Dr. Laurent York MD Work Phone: [facility] 02-03-2025 20:00-0400 Heart rate 89 /min Dr. Laurent York MD Work Phone: [facility] 02-03-2025 20:00-0400 Respiratory rate 18 /min Dr. Laurent York MD Work Phone: [facility] 02-03-2025 20:00-0400 SaO2% (BldA) [Mass fraction] 94 % Dr. Laurent York MD Work Phone: 9(334)110-851677 [place] [address] 02-03-2025 20:00-0400 Systolic blood pressure 140 mm[Hg] Dr. Laurent York MD Work Phone: [facility] 02-03-2025 19:00-0400 Body temperature 98.2 [degF] Dr. Laurent York MD Work Phone: [facility] 02-03-2025 14:30-0400 Body height 182.[address] Laurent York MD Work Phone: [facility] 02-03-2025 14:30-0400 Body mass index (BMI) [Ratio] 21.4 kg/m2 Dr. Laurent York MD Work Phone: [facility] 02-03-2025 14:30-0400 Body weight 71.[address] Laurent York MD Work Phone: [facility] 07-03-2023 10:28-0500 Body height 190.[address] Laurent York Work Phone: 1(260)481-155477 [place] [address] 07-03-2023 10:21-0500 Body mass index (BMI) [Ratio] 21.2 kg/m2 Dr. Laurent York Work Phone: 0(785)061-790877 [place] [address] 07-03-2023 10:21-0500 Body temperature 98.7 [degF] Dr. Laurent York Work Phone: [facility] 07-03-2023 10:21-0500 Body weight 77.[address] Laurent York Work Phone: [facility] 07-03-2023 10:21-0500 Diastolic blood pressure 76 mm[Hg] Dr. Laurent York Work Phone: 7(129)178-168977 [place] [address] 07-03-2023 10:21-0500 Heart rate 59 /min Dr. Laurent York Work Phone: 2(869)712-938777 [place] [address] 07-03-2023 10:21-0500 Respiratory rate 17 /min Dr. Laurent York Work Phone: 8(489)700-044277 [place] [address] 07-03-2023 10:21-0500 SaO2% (BldA) [Mass fraction] 95 % Dr. Laurent York Work Phone: 2(457)615-582577 [place] [address] 07-03-2023 10:21-0500 Systolic blood pressure 163 mm[Hg] Dr. Laurent York Work Phone: 2(026)982-292777 [place] [address] 06-27-2023 15:13-0400 SaO2% (BldA) [Mass fraction] 96 % Dr. Laurent York Work Phone: [facility] 06-27-2023 14:00-0400 Diastolic blood pressure 73 mm[Hg] Dr. Laurent York Work Phone: 3(561)262-252477 [place] [address] 06-27-2023 14:00-0400 Heart rate 73 /min Dr. Laurent York Work Phone: [facility] 06-27-2023 14:00-0400 Respiratory rate 14 /min Dr. Laurent York Work Phone: [facility] 06-27-2023 14:00-0400 Systolic blood pressure 144 mm[Hg] Dr. Laurent York Work Phone: [facility] 06-27-2023 11:54-0400 Body height 190.[address] Laurent York Work Phone: 1(699)062-616577 [place] [address] 06-27-2023 11:54-0400 Body mass index (BMI) [Ratio] 22.2 kg/m2 Dr. Laurent York Work Phone: 5(378)297-511377 [place] [address] 06-27-2023 11:54-0400 Body temperature 97.8 [degF] Dr. Laurent York Work Phone: 2(057)045-603477 [place] [address] 06-27-2023 11:54-0400 Body weight 80.[address] Laurent York Work Phone: 0(692)702-780049 [place] [address] 05-22-2023 06:27-0400 Body height 184.[address] Laurent York Work Phone: 8(742)532-651449 [place] [address] 05-22-2023 06:27-0400 Body mass index (BMI) [Ratio] 22.6 kg/m2 Dr. Laurent York Work Phone: 1(050)007-833049 [place] [address] 05-22-2023 06:27-0400 Body temperature 97.8 [degF] Dr. Laurent York Work Phone: 3(480)118-869749 [place] [address] 05-22-2023 06:27-0400 Body weight 77.[address] Laurent York Work Phone: 0(277)054-120449 [place] [address] 05-22-2023 06:27-0400 Diastolic blood pressure 87 mm[Hg] Dr. Laurent York Work Phone: 9(723)491-835949 [place] [address] 05-22-2023 06:27-0400 Heart rate 67 /min Dr. Laurent York Work Phone: 8(623)793-708749 [place] [address] 05-22-2023 06:27-0400 Respiratory rate 18 /min Dr. Laurent York Work Phone: 7(487)862-491877 [place] [address] 05-22-2023 06:27-0400 SaO2% (BldA) [Mass fraction] 94 % Dr. Laurent York Work Phone: 2(608)940-470177 [place] [address] 05-22-2023 06:27-0400 Systolic blood pressure 165 mm[Hg] Dr. Laurent York Work Phone: 9(943)191-508177 [place] [address] 04-26-2023 11:23-0400 Body mass index (BMI) [Ratio] 22.8 kg/m2 Dr. Laurent [place] Work Phone: [facility] 04-26-2023 11:23-0400 Body temperature 98.4 [degF] Dr. Laurent York Work Phone: [facility] 04-26-2023 11:23-0400 Body weight 78.[address] Laurent [place] Work Phone: [facility] 04-26-2023 11:23-0400 Diastolic blood pressure 82 mm[Hg] Dr. Laurent York Work Phone: 4(187)693-747277 [place] [address] 04-26-2023 11:23-0400 Heart rate 58 /min Dr. Laurent York Work Phone: 5(539)218-446377 [place] [address] 04-26-2023 11:23-0400 Respiratory rate 16 /min Dr. Laurent York Work Phone: 3(725)766-374477 [place] [address] 04-26-2023 11:23-0400 SaO2% (BldA) [Mass fraction] 92 % Dr. Laurent York Work Phone: 2(291)750-635577 [place] [address] 04-26-2023 11:23-0400 Systolic blood pressure 150 mm[Hg] Dr. Laurent York Work Phone: 5(572)446-496077 [place] [address] 02-05-2023 08:10-0400 SaO2% (BldA) [Mass fraction] 93 % Dr. Laurent [place] Work Phone: [facility] 02-05-2023 07:18-0400 Body height 193.[address] Laurent York Work Phone: [facility] 02-05-2023 07:18-0400 Body mass index (BMI) [Ratio] 20.8 kg/m2 Dr. Laurent [place] Work Phone: [facility] 02-05-2023 07:18-0400 Body weight 77.[address] Laurent [place] Work Phone: 8(808)472-598877 [place] [address] 02-05-2023 07:18-0400 Diastolic blood pressure 81 mm[Hg] Dr. Laurent York Work Phone: [facility] 02-05-2023 07:18-0400 Heart rate 55 /min Dr. Laurent York Work Phone: [facility] 02-05-2023 07:18-0400 Respiratory rate 18 /min Dr. Laurent York Work Phone: [facility] 02-05-2023 07:18-0400 Systolic blood pressure 162 mm[Hg] Dr. Laurent York Work Phone: [facility] Encounters Encounter Date Encounter Type Care Provider Facility Start: 02-03-2025 Non-patient / Non-visit Jose Cain [facility] Work Phone: Start: 02-03-2025 Evaluation and management of inpatient Dr. Luis Unger DO -Medical Surgical 2 Work Phone: Start: 02-03-[address] Laurent York MD Work Phone: [facility] Work Phone: Start: 01-31-2025 ambulatory Laruent Chi Jaylen Facility:[facility] Start: 07-28-2024 End: 07-28-2024 ambulatory Laurent Chi Jaylen Facility:[facility] Start: 07-27-2024 End: 07-27-2024 ambulatory Laurent Chi Jaylen Facility:[facility] Start: 07-19-2024 End: 07-19-2024 ambulatory Laurent Chi Jaylen Facility:[facility] Start: 07-18-2024 End: 07-18-2024 Emergency department patient visit Laurent Chi Jaylen Facility:[facility] Start: 06-08-2024 End: 06-08-2024 ambulatory Laurent Chi Jaylen Facility:[facility] Start: 06-05-2024 End: 06-05-2024 Emergency department patient visit Ed Callahan Facility:[facility] Start: 07-03-2023 End: 07-03-[address] Laurent [place] Work Phone: [facility] Work Phone: Start: 06-30-2023 End: 06-30-[address] Laurent York Work Phone: [facility] Work Phone: Start: 06-30-2023 End: 06-30-[address] Laurent York Work Phone: [facility]-Laboratory, Phy Office 3rd Flr Start: 06-27-2023 End: 06-27-2023 Emergency department patient visit Dr. Laurent York Work Phone: [facility]-Emergency Department Work Phone: Start: 05-22-2023 End: 05-22-[address] Laurent York Work Phone: [facility] Work Phone: Start: 05-22-2023 End: 05-22-[address] Laurent [place] Work Phone: [facility] Work Phone: Start: 04-26-2023 End: 04-26-[address] Laurent [place] Work Phone: [facility] Work Phone: Start: 03-06-2023 End: 03-06-[address] Laurent York Work Phone: [facility]-Cat [facility] Work Phone: Start: 02-20-2023 End: 02-20-[address] Laurent York Work Phone: [facility] Work Phone: Start: 02-20-2023 End: 02-20-[address] Laurent York Work Phone: [facility]-Laboratory, Specimen Work Phone: Start: 02-05-2023 End: 02-05-[address] Laurent York Work Phone: [facility] Work Phone: Start: 02-05-2023 End: 02-05-[address] Laurent York Work Phone: [facility]-Laboratory, OP Pavilion Start: 02-05-2023 End: 02-05-[address] Laurent York Work Phone: [facility] Work Phone: Start: 01-14-2023 Non-patient / Non-visit Dr. Ishan [place] Work Phone: [facility] Start: 01-14-2023 End: 01-14-[address] Laurent York Work Phone: [facility] Work Phone: Start: 01-14-2023 End: 01-14-[address] Laurent York Work Phone: [facility]-Pulmonary Services/Neurology Start: 01-08-2023 End: 01-08-[address] Laurent [place] Work Phone: [facility]-Laboratory, Phy Office 3rd Flr Start: 06-21-2022 End: 06-21-2022 ambulatory [facility] Work Phone: Start: 06-21-2022 End: 06-21-2022 Patient encounter procedure [facility]-Laboratory, Phy Office 3rd Flr Start: 12-12-2021 End: 12-12-2021 Patient encounter procedure [facility]Laboratory, Phy Office 3rd Flr Start: 11-16-2021 End: 11-16-2021 Patient encounter procedure [facility]Laboratory, Phy Office 3rd Flr Start: 09-10-2021 End: 09-10-2021 Patient encounter procedure [facility] Procedures Date Procedure Procedure Detail Performing Clinician Start: 02-03-2025 Plain chest X-ray Dr. Tristin York MD Work Phone: Start: 02-03-[address] Laurent York MD Work Phone: Start: 06-27-2023 Plain chest X-ray Dr. Tristin York Work Phone: Start: 06-27-[address] Laurent York Work Phone: Start: 03-06-2023 CT of chest without contrast Dr. Laurent York Work Phone: Start: 02-20-2023 Investigation of transfusion reaction Dr. Laurent York Work Phone: Start: 02-20-2023 Respiratory microbia l culture Dr. Laurent York Work Phone: Start: 06-21-2022 Plain chest X-ray Start: 11-16-2021 Plain chest X-ray Start: 09-10-2021 MRI of brain with contrast History of transuret hral prostatectomy History of transurethral resection of prostate Comment on above: TURP on 09/[address] Justo Magaña Plan of Treatment Date Care Activity Detail Author Start: 02-03-2025 [facility] Start: 02-03-2025 Admission procedure [facility] Start: 02-03-2025 Hospital admission, emergency, from emergency room, medical nature [facility] Start: 02-03-2025 [facility] Start: 06-27-2023 [facility] Start: 06-27-2023 [facility] Continuous pulse oximetry [facility] CT Chest WO contrast [facility] Patient Education Coronavirus Di sease 2019 (COVID-19): Caring for Yourself or Others [facility] Work Phone: Patient referral [facility] Work Phone: Immunizations Immunization Date Immunization Notes Care Provider Fa cility 11-16-2020 Covid (Pfizer) [facility] 10-26-2020 Covid (Pfizer) [facility] 11-29-2015 tetanus and diphther ia toxoids, adsorbed, preservative free, for adult use (2 Lf of tetanus toxoid and 2 Lf of diphtheria toxoid) [facility] 09-03-2014 influenza, injectabl e, quadrivalent, preservative free Dr. Laurent York Work Phone: [facility] 09-03-2014 influenza, seasonal, injectable [facility] Payers Date Payer Category Payer Self-pay [id number] 2013 Medicare [id number] Medicare [id number] Unknown [id number] [id number] [id number] Unknown [id number] 2.16.8 [id number] Unknown [id number] 2.16.8 [id number] Unknown [id number] 2.16.8 [id number] Unknown [id number] 2.16.8 [id number] Unknown [id number] 2.16.8 [id number] Unknown [id number] 2.16.8 [id number] Social History Date Type Detail Facility Start: 07-18-2021 End: 07-03-2023 Tobacco smoking status NHIS Unknown if ever smoked [facility] Start: 02-05-2015 None [facility] Start: 02-05-2015 Alone [facility] Start: 02-05-2015 Non-smoker [facility] Start: 1940 Sex Assigned At Male [facility] Start: 02-03-2025 Tobacco smoking stat us INIS Ex-smoker (finding) [facility] Mental Status Date Assessment Result Facility 02-03-2025 Cognitive function Voice/Name [facility] Work Phone: 06-27-2023 Cognitive function Level Of Cons ciousness Awake;Alert;Appropriate [facility] Work Phone: Clinical Notes 01-14-2023 to 02-03-2025 Note Date & Type Note Facility 02-03-2025 History and physi bob note Note Date/Time February 03, 2025 7:01pm [facility] Medical Records Department [address] [place] [address] H&P Exam - Hospitalist 02/03/25 1830 MR#: [id number] Acct: [id number] Name: ELMER RAMIREZ Rep #:[id number] 13 : 1940 84 From: Jose CHILDRESS PCP: Dr. Laurent York MD Status:REG E R Location: ED HPI - General General Date of Service: 02/03/25 Chief Complaint: chest pain HPI Narrative ELMER RAMIREZ, is a 84 M with pmhx rheumatic fever with residual heart murmur, pulmonary fibrosis and benign essential tremor who presents to the ER with chest pain. This began yesterday AM. He describes sharp pain in the mid sternal area and midepigastric region. This is worse with deep breathing. He hadsome SOB and chest tightness with it. He continues to have the chest pain currently if he takes a deep breath. Yesterday he also had some nausea and vomiting. He notes that the vomit was brownish. He only threw up once. He has nodiarrhea. He has some abdominal discomfort which also occurs with eating. He came to the ER and had negative troponin x 2, EKG with RBBB, negatve lipase. He is to be kept overnight for chest pain workup. [facility] Medical History (Updated 02/03/25 @ 18:35 by MONROE Pelletier) Rheumatic fever Interstitial pulmonary fibrosis Tremor Home Medications ?Medication ?Instructions ?Recorded ?Last Taken ?Type propranolol 10 mg tablet 10 mg PO BID #60 TABLETS 06/01/15 07:00 Rx meclizine 25 mg tablet 25 mg PO DAILY PRN PRN verti go 07/28/24 Unknown History Allergy/AdvReac Type Severity Reaction Status Date / Time No Known Allergies Allergy Verified 02/03/25 14:30 Family History Son Cancer CVA (cerebral vascular accident) Father Heart disease Surgical History History of tonsillectomy Social History Smoking Status: Former smoker how long ago did patient quit smokin years ago ROS Constitutional Constitutional: Denies chills, fatigue or fever(s) ENT HEENT: Denies nasal congestion, nasal discharge or sore throat Cardiovascular Cardiovascular: Reports chest pain and lightheadedness; Denies edema, rapid heart rate or syncope Respiratory/Chest Respiratory/Chest: Reports cough and dyspnea Gastrointestinal Gastrointestinal: Reports abdominal pain, nausea and vomiting; Denies diarrhea Musculoskeletal Musculoskeletal: Denies arthralgias Psychiatric Psychiatric: Denies anxiety Endocrine Endocrinology: Denies change in body appearance Hematologic/Lymphatic Hematologic/Lymphatic: Reports anemia Allergic/Immunologic Allergic/Immunologic: Denies rhinitis Vital Signs Vital Signs Vital Signs: 02/03/25 14:30 02/03/25 14:34 02/03/25 14:45 Temperature 98.2 F Temperature Source Oral Pulse Rate 94 96 89 Respiratory Rate 20 H 22 H 25 H Blood Pressure 151/119 H Blood Pressure Mean 129 Pulse Ox 98 99 Oxygen Delivery Method Room Air 02/03/25 15:00 02/03/25 15:15 02/03/25 15:30 Temperature Temperature Source Pulse Rate 85 87 84 Respiratory Rate 28 H 21 H 17 Blood Pressure 136/93 H Blood Pressure Mean 107 Pulse Ox 98 97 98 Oxygen Delivery Method 02/03/25 15:45 02/03/25 15:58 02/03/25 15:59 Temperature Temperature Source Pulse Rate 85 85 89 Respiratory Rate 25 H 28 H Blood Pressure 132/89 H 132/89 H Blood Pressure Mean 103 Pulse Ox 99 97 Oxygen Delivery Method 02/03/25 15:59 02/03/25 15:59 02/03/25 16:00 Temperature Temperature Source Pulse Rate 91 83 Respiratory Rate 18 20 H Blood Pressure 132/89 H 166/105 H Blood Pressure Mean 103 121 Pulse Ox 100 100 99 Oxygen Delivery Method Room Air 02/03/25 16:15 02/03/25 16:30 02/03/25 16:45 Temperature Temperature Source Pulse Rate 89 84 78 Respiratory Rate 24 H 26 H 25 H Blood Pressure 129/98 H 133/90 H 136/93 H Blood Pressure Mean 106 102 106 Pulse Ox 95 95 96 Oxygen Delivery Method 02/03/25 17:00 02/03/25 17:53 Temperature Temperature Source Pulse Rate 79 83 Respiratory Rate 24 H 16 Blood Pressure 142/100 H 132/97 H Blood Pressure Mean 114 108 Pulse Ox 97 99 Oxygen Delivery Method Room Air Weight Weight: 71.7 kg Body Mass Index (BMI) 21.4 Physical Exam Const alert and oriented x3 General Appearance: cooperative HEENT normocephalic and head/scalp atraumatic Eyes PERRL Neck no lymphadenopathy Resp normal respiratory effort Resp Narrative: diminished Cardio regular rate and regular rhythm Cardio Narrative: 3/6 systolic murmur best heard at RSB 2nd ICS GI normal to inspection, nondistended, normoactive bowel sounds and soft to palpation Palpation: tender epigastric, LLQ, RLQ, LUQ and RUQ Extremity normal to inspection Skin Skin Narrative: no wounds rashes or lesions noted Neuro oriented x3 Psych affect normal Results Lab / Micro Data 02/03/25 14:30 02/03/25 14:30 Labs: Laboratory Results - last 24 hr 02/03/25 14:30: WBC 7.8, RBC 3.98 L, Hgb 12.8 L, Hct 39.3 L, MCV 98.7 H, MCH 32.2 H, MCHC 32.6, RDW Std Deviation 49.3 H, RDW Coeff of Roe 13.5, Plt Count 167, MPV 10.0, Immature Gran % (Auto) 0.400, Neut % (Auto) 67.2, Lymph % (Auto) 20.8, [place] % (Auto) 9.0, Eos % (Auto) 2.1, Baso % (Auto) 0.5, Absolute Neuts (auto) 5.2, Absolute Lymphs (auto) 1.62, Nucleated RBC % 0, Sodium 138, Potassium 4.2, Chloride 103, Carbon Dioxide 21.7, Anion Gap 13, BUN 22 H, Creatinine 0.88, Estim Creat Clear Calc 62.24, Est GFR (MDRD) Non-Af 84, BUN/Creatinine Ratio 24.7 H, Glucose 114 H, Calcium 9.2, Total Bilirubin 0.59, AST 21, ALT 12, Alkaline Phosphatase 102, Troponin T High Sens 15, Total Protein7.3, Albumin 4.1, Globulin 3.3, Albumin/Globulin Ratio 1.3, Lipase 24 02/03/25 16:57: Troponin T Hi Sens 2 Hr 16 Imaging Radiology Impression Chest X-Ray 02/03/25 15:40 IMPRESSION: Evaluation is limited by lack of a prior comparison study. Increased lung densities are seen bilaterally, predominantly in the mid to lowerlung zones, [id number]-left. Differential diagnosis includes chronic change and Pneumonitis, the latter of greater concern in the right. No pleural effusion or pneumothorax is seen. The cardiomediastinal silhouette is remarkable for a partially calcified aorta. No evidence of cardiomegaly. No acute osseous process is seen. Reading Location: [address] Assessment & Plan Assessment/Plan (1) Chest pain: PLAN: 1. Chest pain - began yesterday am. sharp pain worse with deep breathing. some associated SOB, chest tightness, lightheadedness.last night some nausea andvomiting. No hx of heart disease. troponin negative x 2. Will repeat. EKG RBBB CXR possible chronic change and pneumonitis, hx of pulmonary fibrosis. SpO2 99% RA Obtain stress test in AM given hx of heart murmur and loud murmur on exam will obtain Echo as well. 2. coffee ground emesis - x 1 last night. with abdominal pain and tenderness. Hgb 12.8. obtain CT abdomen with and without contrast. Consult GI. Start protonix. he also has a hx of hiatal hernia 3. Pulmonary fibrosis - not on any medications for this 4. Hx benign essential tremor - on propranolol DVT ppx: hold for coffee ground emesis This patient was seen by Jose Cain PA-C under the supervision of Doctor Unger. 02/03/25 1850 <Electronically signed by Jose CHILDRESS> Cosigner Signature (if applicable): CC: MONROE Frank; Dr. Luis Unger DO; Dr. Laurent York MD~ Signed ADDENDUM by Dr. Luis Unger DO on 02/03/25 at 1901 Addendum Patient seen and examined independently. Data and vitals reviewed. I agree with the above note by the physician promotional advertising assistant. This is an 84-year-old male with history of hiatal hernia presents with chest and abdominal pain. Patient has been having abdominal pain for quite some time but today he had the abdominal pain as well as chest pain. Describes the abdominal pain can be more diffuse but the chest pain being midsternal. With the chest pain he sought attention in the emergency room. Patient underwent cardiac workup in the emergency room and that was unremarkable but the hospital service was contacted for admission. With a relates to me after just addressingif he was having swelling in his legs is that he has basically lost a lot of weight roughly 60 pounds over the past year. States that he is eating but he isjust been losing weight. And recently with the chest pain and abdominal pain that he had today vomited and appeared to be coffee-ground. Patient has no history of PUD. Patient has had some chills and shortness of breath Social: Patient is a remote smoker quitting roughly 47 years ago. No alcohol drugs. Family history significant only for bradycardia in his father who had pacemakers. All review of systems were negative except as mentioned above in the history of present illness and the other review of systems. - Physical Exam General: Alert, Oriented x3, Cooperative. Cachectic and gaunt. HEENT: Atraumatic, PERRLA, EOMI, Normocephalic Oral: Moist Mucosa, No Gingival or Mucosal Lesions/ Ulcerations Neck: Supple, No JVD, Negative Carotid Bruits Lungs: Bibasilar crackles, Normal air movement Cardiovascular: Regular rate, Normal S1, Normal S2, 3 out of 6 holosystolic murmur at the apex Abdomen: Bowel Sounds Present, Soft, Non Tender, Non-Distended, slight hepatomegaly Extremities: No clubbing, No cyanosis, No edema, Capillary Refill Less than 3 Seconds Skin: No rashes, No breakdown Musculoskeletal: No Tenderness to Palpation of Joints or Extremities Neurological: Moves all extremity spontaneously. Psych/Mental Status: Normal Affect, Appropriate Assessment and plan Chest pain: Atypical. Cardiac workup thus far is negative. Will do a stress test to make sure he does not any underlying cardiac disease. I suspect his GI related rather than actually cardiac chest pain. Heart murmur: Suspect mitral regurgitation. Will check 2D echocardiogram Weight loss: Patient is lost 60 pounds in the past year. Unintentional weight loss. Check CT of the abdomen pelvis. Consult GI for further recommendations. TSH from June 2024 was 2.88. Possible coffee-ground emesis: Suspected GI bleed. Start pantoprazole IV twice daily 40 mg. Consult GI for recommendations. No concern the patient may have ulcers which may be contributing to his abdominal and chest pain. VTE prophylaxis with SCDs Visit Charges Inpatient E&M: 13279 Init Hosp L3 02/03/25 190<Electronically signed by Luis Unger DO> Cosigner Signature (if applicable): cc: MONROE Frank; Dr. Luis Unger DO; Dr. 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 Laurent York MD Status:REG E R Location: ED HPI - General General Date of Service: 02/03/25 Chief Complaint: chest pain HPI Narrative ELMER RAMIREZ, is a 84 M with pmhx rheumatic fever with residual heart murmur, pulmonary fibrosis and benign essential tremor who presents to the ER with chest pain. This began yesterday AM. He describes sharp pain in the mid sternal area and midepigastric region. This is worse with deep breathing. He hadsome SOB and chest tightness with it. He continues to have the chest pain currently if he takes a deep breath. Yesterday he also had some nausea and vomiting. He notes that the vomit was brownish. He only threw up once. He has nodiarrhea. He has some abdominal discomfort which also occurs with eating. He came to the ER and had negative troponin x 2, EKG with RBBB, negatve lipase. He is to be kept overnight for chest pain workup. [facility] Medical History (Updated 02/03/25 @ 18:35 by MONROE Pelletier) Rheumatic fever Interstitial pulmonary fibrosis Tremor Home Medications ?Medication ?Instructions ?Recorded ?Last Taken ?Type propranolol 10 mg tablet 10 mg PO BID #60 TABLETS 06/01/15 07:00 Rx meclizine 25 mg tablet 25 mg PO DAILY PRN PRN verti go 07/28/24 Unknown History Allergy/AdvReac Type Severity Reaction Status Date / Time No Known Allergies Allergy Verified 02/03/25 14:30 Family History Son Cancer CVA (cerebral vascular accident) Father Heart disease Surgical History History of tonsillectomy Social History Smoking Status: Former smoker how long ago did patient quit smokin years ago ROS Constitutional Constitutional: Denies chills, fatigue or fever(s) ENT HEENT: Denies nasal congestion, nasal discharge or sore throat Cardiovascular Cardiovascular: Reports chest pain and lightheadedness; Denies edema, rapid heart rate or syncope Respiratory/Chest Respiratory/Chest: Reports cough and dyspnea Gastrointestinal Gastrointestinal: Reports abdominal pain, nausea and vomiting; Denies diarrhea Musculoskeletal Musculoskeletal: Denies arthralgias Psychiatric Psychiatric: Denies anxiety Endocrine Endocrinology: Denies change in body appearance Hematologic/Lymphatic Hematologic/Lymphatic: Reports anemia Allergic/Immunologic Allergic/Immunologic: Denies rhinitis Vital Signs Vital Signs Vital Signs: 02/03/25 14:30 02/03/25 14:34 02/03/25 14:45 Temperature 98.2 F Temperature Source Oral Pulse Rate 94 96 89 Respiratory Rate 20 H 22 H 25 H Blood Pressure 151/119 H Blood Pressure Mean 129 Pulse Ox 98 99 Oxygen Delivery Method Room Air 02/03/25 15:00 02/03/25 15:15 02/03/25 15:30 Temperature Temperature Source Pulse Rate 85 87 84 Respiratory Rate 28 H 21 H 17 Blood Pressure 136/93 H Blood Pressure Mean 107 Pulse Ox 98 97 98 Oxygen Delivery Method 02/03/25 15:45 02/03/25 15:58 02/03/25 15:59 Temperature Temperature Source Pulse Rate 85 85 89 Respiratory Rate 25 H 28 H Blood Pressure 132/89 H 132/89 H Blood Pressure Mean 103 Pulse Ox 99 97 Oxygen Delivery Method 02/03/25 15:59 02/03/25 15:59 02/03/25 16:00 Temperature Temperature Source Pulse Rate 91 83 Respiratory Rate 18 20 H Blood Pressure 132/89 H 166/105 H Blood Pressure Mean 103 121 Pulse Ox 100 100 99 Oxygen Delivery Method Room Air 02/03/25 16:15 02/03/25 16:30 02/03/25 16:45 Temperature Temperature Source Pulse Rate 89 84 78 Respiratory Rate 24 H 26 H 25 H Blood Pressure 129/98 H 133/90 H 136/93 H Blood Pressure Mean 106 102 106 Pulse Ox 95 95 96 Oxygen Delivery Method 02/03/25 17:00 02/03/25 17:53 Temperature Temperature Source Pulse Rate 79 83 Respiratory Rate 24 H 16 Blood Pressure 142/100 H 132/97 H Blood Pressure Mean 114 108 Pulse Ox 97 99 Oxygen Delivery Method Room Air Weight Weight: 71.7 kg Body Mass Index (BMI) 21.4 Physical Exam Const alert and oriented x3 General Appearance: cooperative HEENT normocephalic and head/scalp atraumatic Eyes PERRL Neck no lymphadenopathy Resp normal respiratory effort Resp Narrative: diminished Cardio regular rate and regular rhythm Cardio Narrative: 3/6 systolic murmur best heard at RSB 2nd ICS GI normal to inspection, nondistended, normoactive bowel sounds and soft to palpation Palpation: tender epigastric, LLQ, RLQ, LUQ and RUQ Extremity normal to inspection Skin Skin Narrative: no wounds rashes or lesions noted Neuro oriented x3 Psych affect normal Results Lab / Micro Data 02/03/25 14:30 02/03/25 14:30 Labs: Laboratory Results - last 24 hr 02/03/25 14:30: WBC 7.8, RBC 3.98 L, Hgb 12.8 L, Hct 39.3 L, MCV 98.7 H, MCH 32.2 H, MCHC 32.6, RDWStd Deviation 49.3 H, RDW Coeff of Roe 13.5, Plt Count 167, MPV 10.0, Immature Gran % (Auto) 0.400,Neut % (Auto) 67.2, Lymph % (Auto) 20.8, [place] % (Auto) 9.0, Eos % (Auto) 2.1, Baso % (Auto) 0.5, Absolute Neuts (auto) 5.2, Absolute Lymphs (auto) 1.62, Nucleated RBC % 0, Sodium 138, Potassium 4.2, Chloride 103, Carbon Dioxide 21.7, Anion Gap 13, BUN 22 H, Creatinine 0.88, Estim Creat Clear Calc 62.24, Est GFR (MDRD) Non-Af 84, BUN/Creatinine Ratio 24.7 H, Glucose 114 H, Calcium 9.2, Total Bilirubin 0.59, AST 21, ALT 12, Alkaline Phosphatase 102, Troponin T High Sens 15, Total Protein7.3, Albumin 4.1, Globulin 3.3, Albumin/Globulin Ratio 1.3, Lipase 24 02/03/25 16:57: Troponin T Hi Sens 2 Hr 16 Imaging Radiology Impression Chest X-Ray 02/03/25 15:40 IMPRESSION: Evaluation is limited by lack of a prior comparison study. Increased lung densities are seen bilaterally, predominantly in the mid to lowerlung zones, [id number]-left. Differential diagnosis includes chronic change and Pneumonitis, the latter of greater concern in the right. No pleural effusion or pneumothorax is seen. The cardiomediastinal silhouette is remarkable for a partially calcified aorta. No evidence of cardiomegaly. No acute osseous process is seen. Reading Location: [address] Assessment & Plan Assessment/Plan (1) Chest pain: PLAN: 1. Chest pain - began yesterday am. sharp pain worse with deep breathing. some associated SOB, chest tightness, lightheadedness.last night some nausea andvomiting. No hx of heart disease. troponin negative x 2. Will repeat. EKG RBBB CXR possible chronic change and pneumonitis, hx of pulmonary fibrosis. SpO2 99% RA Obtain stress test in AM given hx of heart murmur and loud murmur on exam will obtain Echo as well. 2. coffee ground emesis - x 1 last night. with abdominal pain and tenderness. Hgb 12.8. obtain CT abdomen with and without contrast. Consult GI. Start protonix. he also has a hx of hiatal hernia 3. Pulmonary fibrosis - not on any medications for this 4. Hx benign essential tremor - on propranolol DVT ppx: hold for coffee ground emesis This patient was seen by Jose Cain PA-C under the supervision of Doctor Ute. 02/03/25 1850 Cosigner Signature (if applicable): CC: MONROE Frank; Dr. Luis Unger DO; Dr. Laurent York MD~ Signed ADDENDUM by Dr. Luis Unger DO on 02/03/25 at 1901 Addendum Patient seen and examined independently. Data and vitals reviewed. I agree with the above note by the physician promotional advertising assistant. This is an 84-year-old male with history of hiatal hernia presents with chest and abdominal pain. Patient has been having abdominal pain for quite some time but today he had the abdominal pain as well as chest pain. Describes the abdominal pain can be more diffuse but the chest pain being midsternal. With the chest pain he sought attention in the emergency room. Patient underwent cardiac workup in the emergency room and that was unremarkable but the hospital service was contacted for admission.With a relates to me after just addressingif he was having swelling in his legs is that he has basically lost a lot of weight roughly 60 pounds over the past year. States that he is eating but he isjust been losing weight. And recently with the chest pain and abdominal pain that he had today vomited and appeared to be coffee-ground. Patient has no history of PUD. Patient has had some chills and shortness of breath Social: Patient is a remote smoker quitting roughly 47 years ago. No alcohol drugs. Family history significant only for bradycardia in his father who had pacemakers. All review of systems were negative except as mentioned above in the history of present illness andthe other review of systems. - Physical Exam General: Alert, Oriented x3, Cooperative. Cachectic and gaunt. HEENT: Atraumatic, PERRLA, EOMI, Normocephalic Oral: Moist Mucosa, No Gingival or Mucosal Lesions/ Ulcerations Neck: Supple, No JVD, Negative Carotid Bruits Lungs: Bibasilar crackles, Normal air movement Cardiovascular: Regular rate, Normal S1, Normal S2, 3 out of 6 holosystolic murmur at the apex Abdomen: Bowel Sounds Present, Soft, Non Tender, Non-Distended, slight hepatomegaly Extremities: No clubbing, No cyanosis, No edema, Capillary Refill Less than 3 Seconds Skin: No rashes, No breakdown Musculoskeletal: No Tenderness to Palpation of Joints or Extremities Neurological: Moves all extremity spontaneously. Psych/Mental Status: Normal Affect, Appropriate Assessment and plan Chest pain: Atypical. Cardiac workup thus far is negative. Will do a stress test to make sure he does not any underlying cardiac disease. I suspect his GI related rather than actually cardiac chest pain. Heart murmur: Suspect mitral regurgitation. Will check 2D echocardiogram Weight loss: Patient is lost 60 pounds in the past year. Unintentional weight loss. Check CT of theabdomen pelvis. Consult GI for further recommendations. TSH from June 2024 was 2.88. Possible coffee-ground emesis: Suspected GI bleed. Start pantoprazole IV twice daily 40 mg. ConsultGI for recommendations. No concern the patient may have ulcers which may be contributing to his abdominal and chest pain. VTE prophylaxis with SCDs Visit Charges Inpatient E&M: 96886 Init Hosp L3 02/03/25 1901 Cosigner Signature (if applicable): cc: MONROE Frank; Dr. Luis Unger DO; Dr. Laurent York MD ~* Signed [facility]06-12-2025 Radiology Diagnostic study note [facility] Imaging Services [address] [place], [place] [id number] Chest 1 View (Portable) MR#: [id number] Acct: [id number] Name: ASHLEYELMER D Rep #: [id number] : 1940 M 84 From: Doron Trinh MD PCP: Dr. Laurent York MD Status: REG E R Study:Chest 1 View (Portable) Date of Exam: 02/03/25 Exam# [id number] Ordering Dr: Luis Alas DO PROCEDURE: CHEST 1 VIEW (PORTABLE) 02/03/2025 REASON FOR EXAM: CHEST PAIN TECHNIQUE: Frontal view of the chest. COMPARISON: None provided. RAD/Chest 1 View (Portable) IMPRESSION: Evaluation is limited by lack of a prior comparison study. Increased lung densities are seen bilaterally, predominantly in the mid to lowerlung zones, [id number]-left. Differential diagnosis includes chronic change and Pneumonitis, the latter of greater concern in the right. No pleural effusion or pneumothorax is seen. The cardiomediastinal silhouette is remarkable for a partially calcified aorta. No evidence of cardiomegaly. No acute osseous process is seen. Reading Location: [address] CC: Dr. Luis Alas DO; Dr. Laurent York MD ~ Sales Promotion Representative: Signed [facility]11-03-2023 Discharge summary Author Wang Mccracken [facility] June 27, 2023 3:02pm Note Date/Time June 27, 2023 3 :02pm [facility] Medical Records Department [address] [place] [address] Emergency Department Summary 06/27/23 MR#: [id number] Acct: [id number] Name: ELMER RAMIREZ Rep #:[id number] : 1940 82 From: Wang Mccracken MD PCP: Dr. Laurent York MD Status:REG E R Location: ED HPI History of Present Illness Chief Complaint: General Illness Informant: patient Narrative Narrative: Patient complains that he has myalgias and he has a positive troponin. Patient states yesterday evening he started to feel bad. Most of his complaintsare myalgias. He states he had a little bit of a cough but not bringing anything up. He is not short of breath. He has oxygen at home but usually doesnot use it. And he is not desaturating now. He has no nausea vomiting diarrheaor pain in his abdomen. His primary complaints is myalgias. He thinks he may have had a fever but did not measure it. Patient does have a history of some pulmonary fibrosis thought to be related to scarring from a prior pneumonia. [facility] Medical History Interstitial pulmonary fibrosis Tremor Home Medications propranolol 10 mg tablet 10 mg PO BID #60 TABLETS 02/07/15 [Rx Last Taken 06/01/15 07:00] albuterol sulfate 90 mcg/actuation aerosol inhaler 2 puff inhalation Q6H PRN shortness of breath or wheezing #8.5 grams 04/26/23 [Rx Last Taken Unknown] nintedanib 150 mg capsule 150 mg PO Q12H #60 caps 05/22/23 [Rx Last Taken Unknown] Allergy/AdvReac Type Severity Reaction Status Date / Time No Known Allergies Allergy Verified 05/22/23 09:44 Family History Son Cancer CVA (cerebral vascular accident) Surgical History History of tonsillectomy Social History Smoking Status: Former smoker how long ago did patient quit smokin years ago ROS ROS ED Constitutional Constitutional ED: Reports subjective ENT ENT ED: Reports rhinorrhea; Denies sore throat Cardiovascular Cardiovascular: Denies chest pain or palpitations Respiratory/Chest Respiratory/Chest: Reports cough; Denies dyspnea or sputum Gastrointestinal Gastrointestinal: Denies abdominal pain, diarrhea, nausea or vomiting Genitourinary Genitourinary ED: Denies dysuria Musculoskeletal Musculoskeletal: Reports myalgias Integumentary Denies rash Neurologic Neurologic: Denies headache(s) Endocrine Endocrinology: Denies polydipsia or polyuria Hematologic/Lymphatic Hematologic/Lymphatic: Denies easy bleeding, easy bruising or lymphadenopathy Allergic/Immunologic Allergic/Immunologic ED: Denies urticaria EXAM Physical Exam Narrative Exam Narrative: CONSTITUTIONAL: Patient is nontoxic in appearance. The patient looks comfortable. Work of breathing looks normal. HEENT: No notable trauma. Mucous membranes moist. No sinus tenderness. No indication of pain with swallowing. Throat is not red. EYES: No conjunctival injection. No proptosis. NECK:No JVD. No stridor. CARDIOVASCULAR: Regular rate. Regular rhythm. No notable murmur. No JVD. RESPIRATORY: No respiratory distress. Breathing is unlabored. No wheezes. No rhonchi. No rales. No pain with a deep breath. No chest wall tenderness. Overall his pulmonary exam is pretty normal. Saturations are 96 to 98% on room air showing no hypoxia on the monitor. This is without his oxygen that he does have available at home. GASTROINTESTINAL: Not distended. Bowel sounds are normal. No tenderness. No guarding. No rebound. No palpable mass. No bruit is heard. GENITOURINARY: No tenderness over the bladder. No CVA tenderness. MUSCULOSKELETAL: Atraumatic. No peripheral edema. No cord. No tenderness along the deep venous system. No asymmetry. No distended veins. NEUROLOGICAL: Patient is alert and appropriate. No focal deficit noted. SKIN: No noted rashes. No diaphoresis. PSYCHIATRIC: Patient is calm. Mood is appropriate. Const Vital Signs: 06/27/23 11:54 06/27/23 12:07 06/27/23 12:12 Temperature 97.8 F Temperature Source Temporal Pulse Rate 67 Respiratory Rate 16 Respiratory Effort Short of Breath Blood Pressure 145/81 H Blood Pressure Mean 102 Pulse Ox 96 97 Oxygen Delivery Method Room Air Room Air 06/27/23 12:13 Temperature Temperature Source Pulse Rate Respiratory Rate Respiratory Effort Short of Breath Blood Pressure Blood Pressure Mean Pulse Ox Oxygen Delivery Method Room Air MDM MDM MDM Narrative Medical decision making narrative: We discussed options with the patient. We did agreed to do some blood work and x-ray. His CBC does show slightly low white count consistent with COVID. Mild anemia and thrombocytopenia also. Electrolytes show no marked abnormalities. Glucose is normal at 98. My independent or potation of his two-view PA and lateral chest x-ray does show a lot of fibrotic changes. But similar to prior. Final reading shows findings in keeping with the interstitial cyst worse at the left lung base with possible superimposed atelectasis. I checked with the patient again. He states he feels well. We discussed Paxlovid. With his age and history of pulmonary fibrosis CDC does indicate this. Patient would prefer not to. I explained he still has days to decide if he gets worse. He states he will just take Tylenol and rest at home. He has oxygen available if he needs it but he does not feel short of breath. Lab Data Attestation: I reviewed the patient's lab results. Labs: Laboratory Results - last 24 hr 06/27/23 13:40 WBC 3.9 L RBC 3.95 L Hgb 12.5 L Hct 37.8 L MCV 95.7 H MCH 31.6 MCHC 33.1 RDW Std Deviation 47.4 H RDW Coeff of Roe 13.3 Plt Count 110 L MPV 9.2 Immature Gran % (Auto) 0.300 Neut % (Auto) 60.4 Lymph % (Auto) 20.9 [place] % (Auto) 17.6 H Eos % (Auto) 0.3 Baso % (Auto) 0.5 Absolute Neuts (auto) 2.4 Absolute Lymphs (auto) 0.82 L Nucleated RBC % 0 Sodium 135 L Potassium 3.9 Chloride 102 Carbon Dioxide 25.0 Anion Gap 8 BUN 18 Creatinine 0.80 Estim Creat Clear Calc 80.01 Est GFR (MDRD) Af Amer 119 Est GFR (MDRD) Non-Af 98 BUN/Creatinine Ratio 22.6 H Glucose 98 Calcium 8.3 L Radiography Diagnostic Testing: Clinical Impression(s) from Imaging Studies Chest X-Ray 06/27/23 14:06 IMPRESSION: Findings in keeping with the interstitial fibrosis worse at the left lung base with possible superimposed atelectasis. Electronically Signed: Manoj Matt MD at 14:25 EDT Reading Location ID and State: [address] [place] [address] , Service support , Discharge Plan Triage Chief Complaint: General Illness ED Provider: Wang Mccracken Dx/Rx/DC Orders Clinical Impression: COVID, History of pulmonary fibrosis Instructions: Coronavirus Disease 2019 (COVID-19): Caring for Yourself or Others Prescriptions: No Action nintedanib 150 mg capsule 150 mg PO Q12H Qty: 60 6RF albuterol sulfate 90 mcg/actuation HFA aerosol inhaler 2 puff inhalation Q6H PRN (Reason: shortness of breath or wheezing) Qty: 8.5 0RF propranolol 10 MG tablet 10 mg PO BID Qty: 60 6RF Patient Comments: heart/TREMORS Primary Care Provider: Laurent York Chi Referrals: Laurent York Chi, MD [Primary Care Provider] - 3-5 Days if not improving Disposition Disposition: Home, Self Care What to do if you have Problems For any increased pain, shortness of breath, bleeding, nausea or vomiting, chestpain, or any unexpected problems, contact your Primary Care Provider. Call [facility] ([phone]) or report to the closest Emergency Room. Call 911 if necessary. 06/27/23 1502 <Electronically signed by Wang Mccarcken MD> Cosigner Signature (if applicable): CC: Dr. Laurent York MD ~ Signed [facility] Work Phone: 1(804) 977-184505-23-2023 [facility]WVan [facility] Evaluation noteNo assessment information availableC[facility] Clinic [facility] Work Phone: Evaluation note* Diagnosis Onset Date Resolution Status Interstitial pulmonary fibrosis chronic Interstitial lung disease no neactive [facility] Work Phone: Evaluation note* Diagnosis Onset Date Resolution Status Interstitial pulmonary fibrosis chronic Interstitial lung disease no neactive Pneumonia acute Chronic hypoxemic respiratory failure chronic Emphysema lung chronic Interstitial pulmonary fibrosis [facility] Work Phone: Evaluation note* Diagnosis Onset Date Resolution Status Pneumonia acute Chronic hypoxemic respiratory failure chronic Emphysema lung chronic Interstitial pulmonary fibrosis [facility] Work Phone: Reason for referral (narrative)No reason for referral information availableCleveland Clinic [facility] Work Phone: Chief Complaint and Reason for Visit Chief Complaint 4TH NERVE PALSY LT E YE BLOOD WORK Chief Complaint SHORTNESS OF BREATH SHORTNESS OF BREATH Chief Complaint SHORTNESS OF BREATH SHORTNESS OF BREATH Interstitial lung disease Reason for Visit Interstitial pulmona ry fibrosis Interstitial lung disease Chief Complaint SHORTNESS OF BREATH SHORTNESS OF BREATH Interstitial lung disease INTERSTITIAL LUNG DISEASE Reason for Visit Interstitial pulmona ry fibrosis Interstitial lung disease Chief Complaint Interstitial lung di sease INTERSTITIAL LUNG DISEASE CONCERN FOT PNEUMONIA discuss ct results Reason for Visit Interstitial pulmona ry fibrosis Interstitial lung disease Pneumonia Chronic hypoxemic respiratory failure Emphysema lung Interstitial pulmonary fibrosis Chief Complaint INTERSTITIAL LUNG DI SEASE CONCERN FOT PNEUMONIA discuss ct results GENERAL ILLNESS Reason for Visit Pneumonia Chronic hypoxemic respiratory failure Emphysema lung Interstitial pulmonary fibrosis Chief Complaint INTERSTITIAL LUNG DI SEASE CONCERN FOT PNEUMONIA discuss ct results GENERAL ILLNESS 6 wk FU Reason for Visit Pneumonia Chronic hypoxemic respiratory failure Emphysema lung Interstitial pulmonary fibrosis Chief Complaint Admit Date CHEST PAIN February 03, 2025 6:20 pm CP February 03, 2025 6:30 pm Reason for Visit Admit Date Chest pain February 03, 2025 6:20 pm Coffee ground emesis February 03, 2025 6:2 0pm Hypertension February 03, 2025 6:20 pm Interstitial pulmonary fibrosis January 6:20pm Family History Relationship Condition Age at Onset Recorded Date/T candice Unknown Family History?Hypertension Unknown August 29, 2014 6:48pm Family History?Hypertension Unknown February 05, 2015 8:29pm Family History?No pe rtinent history Unknown February 05, 2015 8:29pm Relationship Condition Age at Onset Recorded Date/T candice son Malignant neoplasm Unknown Cerebrovascular accident (CVA) Unknown Relationship Condition Age at Onset Recorded Date/T candice son Malignant neoplasm Unknown Cerebrovascular accident (CVA) Unknown father Cardiac disease Unknown Advance Directives Advance Directive Response Recorded Date/ Time Advance Directives No June 01, 2015 4:00pm Living Will No July 18, 11:53am Power of Class A Regional Truck [employer] No July 18, 2021 11:53am Advance Directive Response Recorded Date/ Time Advance Directives No June 01, 2015 4:00pm Living Will No June 27 12:11pm Power of Class A Regional [employer] No June 27, 2023 12:11pm Advance Directive Response Recorded Date/ Time Advance Directives No June 01, 2015 3:00pm Living Will No June 27 11:11am Power of Class A Regional [employer] No June 27, 2023 11:11am Advance Directive Response Recorded Date/ Time Do you have a Healthcare Power of Class A Regional Truck Driver? No February 03, 2025 2:35pm Advance Directives No June 01, 2015 4:00pm Summary Purpose Additional Source Comments Goals (unrecognized section and content) Goals may be documented in a n alternate sectionGoals may be documented in an alternate sectionGoals may be documented in an alternate sectionGoals may be documented in an alternate sectionGoals may be documented in an alternate sectionGoals may be documented in an alternate sectionGoals may be documented in an alternate sectionGoals may be documented in an alternate section Care Teams (unrecognized sec tion and content) Team Status: Active Member Role Status Dates Dr. Laurent York MD Primary Care Provider Active Team Status: Active Member Role Status Dates Dr. Laurent York MD Primary Care Provider Active Start: February 03, 2025 Dr. Luis Alas DO Emergency Provider Active Start: February 03, 2025 Dr. Luis Unger DO Admit Provider Active Star t: February 03, 2025 Dr. Luis Unger DO Attending Provider Active Start: February 03, 2025 Team Status: Active Member Role Status Dates Dr. Laurent York MD Primary Care Provider Active Start: February 03, 2025 Dr. Luis Alas DO Emergency Provider Active Start: February 03, 2025 Jose Cain PA, PA Attending Provider Active Sta rt: February 03, 2025 Team Status: Active Member Role Status Dates Dr. Laurent York MD Primary Care Provider Active Team Status: Inactive Member Role Status Dates Dr. Laurent York MD Primary Care Provider, Referring Provider Active Dr. Steffen Oseguera MD Attending Provider Active Team Status: Active Member Role Status Dates Dr. Laurent York MD Primary Care Provi domonique, Referring Provider, Other Provider Active Dr. Tee Arizmendi MD Attending Provider Active Team Status: Inactive Member Role Status Dates Dr. Laurent York MD Primary Care Provider, Attending Provider Active Team Status: Inactive Member Role Status Dates Dr. Laurent York MD Primary Care Provi domonique, Attending Provider, Referring Provider Active Team Status: Active Member Role Status Dates Dr. Laurent York MD Primary Care Provider Active Dr. Steffen Oseguera MD Attending Provider, Referring Provider Active Team Status: Inactive Member Role Status Dates Dr. Laurent York MD Primary Care Provider Active Dr. Steffen Oseguera MD Attending Provider, Referring Provider Active Team Status: Inactive Member Role Status Dates Dr. Steffen Oseguera MD Attending Provider, Referring Provider Active Dr. Laurent York MD Primary Care Provider Active Team Status: Inactive Member Role Status Dates Dr. Laurent York MD Primary Care Provider, Referring Provider Active Dr. Awais Hale DO Attending Provider Active Team Status: Inactive Member Role Status Dates Dr. Laurent York MD Primary Care Provider, Referring Provider Active STEFANI HarveyC Attending Provider Active Team Status: Inactive Member Role Status Dates Dr. Laurent York MD Primary Care Provider Active Dr. Awais Hale DO Attending Provider, Referring Pro vider Active Team Status: Inactive Member Role Status Dates Dr. Laurent York MD Primary Care Provider Active Dr. Wang Mccracken MD Emergency Provider Active Team Status: Inactive Member Role Status Dates Dr. Laurent York MD Primary Care Provider, Referring Provider Active STEFANI Bernal NPC Attending Provider Active Team Status: Inactive Member Role Status Dates Dr. Laurent York MD Primary Care Provider Active Dr. Wang Mccracken MD Attending Provider, Emergency Provider Active Team Status: Active Member Role Status Dates Dr. Laurent York MD Primary Care Provider Active Start: February 03, 2025 Dr. Luis Alas DO Emergency Provider Active Start: February 03, 2025 Dr. Luis Unger DO Admit Provider Active Star t: February 03, 2025 Dr. Luis Unger DO Attending Provider Active Start: February 03, 2025 Team Status: Active Member Role Status Dates Dr. Laurent York MD Primary Care Provider Active Start: February 03, 2025 Dr. Luis Alas DO Emergency Provider Active Start: February 03, 2025 MONROE Pelletier Attending Provider Active Sta rt: February 03, 2025 (unrecognized sect ion and content) No Status Records Found INFORMATION SOURCE (unrecogn ized section and content) DATE CREATED AUTHOR 01/29/2025 [facility] FOR RECORDS PERTAINING TO PATIENTS WHO ARE OR HAVE BEEN ENROLLED IN A CHEMICAL DEPENDENCY/SUBSTANCEABUSE PROGRAM, SOME INFORMATION MAY BE OMITTED. This clinical summary was aggregated from multiple sources. Caution should be exercised in using it in the provision of clinical care. This summary normalizes information from multiple sources, and as a consequence, information in this document may materially change the coding, format and clinical context of patient data. In addition, data may be omitted in some cases. CLINICAL DECISIONS SHOULD BE BASED ON THE PRIMARY CLINICAL RECORDS. [employer] provides no warranty or guarantee of the accuracy or completeness of information in this document.
[2025-02-03] MEDS: Propranolol 10 MG Tablet PO (21:35)
[2025-02-03] MEDS: Pantoprazole Sodium 40 MG in 0.9% Normal Saline (100mL MB+) 100 ML 330 MG IV (21:36)
[2025-02-03] MEDS: 0.9% Saline Lock 10 ML Syringe IV (21:38)
--- NOTE | 2025-02-03 23:22 | PCM.HOSP.N ---
Hospitalist Note Called due to A-fib on the monitor. EKG c/w A-fib. HR is controlled and currently in the 80's. Continue Propranolol. No anticoagulation for now with concern for GIB. Check TSH. Echo is ordered and continue to monitor rate on ECHO.
[2025-02-04] VITALS (16 sets, daily range): BP systolic 81–144; BP diastolic 65–99; PULSE 78–106; RESP 14–21; TEMP 36.6–37.1; O2SAT 93–97; BMI 21.2
--- NOTE | 2025-02-04 00:05 | CT_ITS ---
PROCEDURE: ABDOMEN/PELVIS WITH CONTRAST 02/04/2025 REASON FOR EXAM: WEIGHT LOSS TECHNIQUE: Abdomen and pelvis CT with intravenous contrast. Coronal and Sagittal reconstruction series were provided. PATIENT PREPARATION: Per protocol ORAL CONTRAST TYPE: Gastrografin. CONTRAST: Isovue-300 VOLUME: 100 mL One or more dose reduction techniques were used (e.g., Automated exposure control, adjustment of the mA and/or kV according to patient size, use of iterative reconstruction technique. RADIATION DOSE SUMMARY: CTDlvol: 9 mGy DLP: 686.14 mGycm COMPARISON: None FINDINGS: Lung bases: Findings suggestive of scarring in the lower lobes with evidence of bullous changes in the anterior aspect of the right lower lobe. Coronary artery calcification. There is evidence of a large left-sided Bochdalek hernia containing multiple loops of small bowel and colon. Liver: Normal size. No mass. Gallbladder: Unremarkable Spleen: Unremarkable Pancreas: Diffuse fatty atrophy. Adrenals: Unremarkable Kidneys: Moderate degree of bilateral hydronephrosis. No obstructive uropathy is seen. There is evidence of atrophy of the left kidney. Bladder: Marked degree of urinary bladder distention. Bowel: Large amount of food and fluid seen in the distended stomach. Appendix: The appendix is not identified. There is no inflammatory process identified in the right lower quadrant to suggest appendicitis. Lymph nodes: Unremarkable. Vasculature: Atherosclerotic calcification of the abdominal aorta and the major visceral branches. Peritoneum / Retroperitoneum: Small right inguinal hernia containing nondilated small bowel loops. Bones: Degenerative changes of the spine. Levoconvex scoliosis. CT/Abdomen/Pelvis WITH Contrast IMPRESSION: Markedly distended urinary bladder with bilateral hydronephrosis and hydrourete r bilaterally worse on the right side. Large left-sided Bochdalek hernia. OVERALL FINAL ASSESSMENT: . Reading Location: [id number]
[2025-02-04] MEDS: Nitroglycerin (INPATIENT USE) 0.4 MG TAB.SUBL SL (03:05)
[2025-02-04] MEDS: Mag Hydrox/Al Hydrox/Simeth 30 ML UDC PO (03:52)
[2025-02-04] MEDS: Lidocaine 2% Viscous15 ML UDC 15 ML PO (03:52)
--- NOTE | 2025-02-04 05:55 | EKG12_ITS ---
Test Reason : CP Blood Pressure : */* mmHG Vent. Rate : 99 BPM Atrial Rate : 111 BPM P-R Int : * ms QRS Dur : 164 ms QT Int : 352 ms P-R-T Axes : * 126 -5 degrees QTcB Int : 451 ms Undetermined rhythm Right bundle branch block Left posterior fascicular block Bifascicular block Abnormal ECG When compared with ECG of 18-Jul-2021 10:00, Current undetermined rhythm precludes rhythm comparison, needs review Left posterior fascicular block is now Present Confirmed by REDDY MACKENZIE, ALTON ([id number]), news video editor TAMMY FABIAN ([id number]) on 02/09/2025 7:28:53 AM Referred By: Confirmed By: ALTON BLAKELY MD
[2025-02-04 06:55] LABS: Absolute Lymphocyte Count 0.97 X10^3/uL (0.83-4.51); Absolute Neutrophil Count 5.9 X10^3/uL (2.0-7.7); Basophil# 0.02 X10^3/uL; Basophil% 0.3 % (0-1); Eosinophil# 0.07 X10^3/uL; Eosinophils% 0.9 % (0-5); Hemoglobin 12.9 g/dL (13.0-16.5); Lymphocyte # 0.97 X10^3/ul (0.83-4.51); Lymphocyte % 13.1 % (19-41); Mean Corp Hgb Conc 33.1 g/dL (32-36); Mean Corpuscular Hgb 32.4 pg (27.0-32.0); Mean Platelet Vol. 9.4 fl (6.2-12.0); Monocyte# 0.47 X10^3/uL; Monocyte% 6.3 % (0-10); NRBC Flagged by Analyzer 0 % (0-5); Neutrophil # 5.86 X10^3/uL (2.7-7.7); Neutrophil % 78.9 % (47-70); Platelet Count 156 K/mm3 (150-450); RBC Distribution Width CV 13.5 % (11.6-14.6); RBC Distribution Width SD 48.6 fl (35.1-43.9); Red Blood Count 3.98 M/mm3 (4.6-6.2); White Blood Count 7.4 K/mm3 (4.4-11.0)
[2025-02-04] MEDS: 0.9% Saline Lock 10 ML Syringe IV ×2 (06:59→10:40)
[2025-02-04] MEDS: Ondansetron 4 MG/2 ML Vial IV (06:59)
[2025-02-04 07:22] LABS: Anion Gap 12 (5-15); BUN 19 mg/dL (4-19); BUN/Creat Ratio 22.6 RATIO (10-20); Calcium,Total 9.2 mg/dL (7.6-11.0); Carbon Dioxide 24.1 mmol/L (21.0-32.0); Chloride 101 mmol/L (98-108); Creatinine, Serum 0.82 mg/dL (0.70-1.20); EST Glomerular Filtration Rate 86 (>60); Estimated Creatinine Clearance 66.05 ml/min (50-250); Glucose 111 mg/dL (70-99); Potassium 4.2 mmol/L (3.3-5.1); Sodium Level 137 mmol/L (133-145)
[2025-02-04] MEDS: Propranolol 10 MG Tablet PO ×2 (10:41→22:00)
[2025-02-04] MEDS: Pantoprazole Sodium 40 MG in 0.9% Normal Saline (100mL MB+) 100 ML 330 MG IV ×2 (10:41→22:00)
[2025-02-04] MEDS: 0.9% Normal Saline (250mL Bag) 250 ML 15 ML IV (11:00)
--- NOTE | 2025-02-04 13:13 | STRESSREP_ITS ---
Stress Test Report Pharmacologic myocardial perfusion stress test. Resting EKG demonstrates normal sinus rhythm with a rate of [ ] bpm. Resting blood pressure is [178/80] mmHg. 0.4 mg of regadenoson was infused per usual protocol followed by rapid intravenous saline flush injection. Continuous EKG monitoring was performed. The maximum heart rate was [76] bpm which was [52% ]of max impacted heart rate the maximum workload was 1 metabolic equivalent. At rest there were no ST or T wave changes noted to suggest ischemia and at peak infusion nonspecific ST changes were noted which did not meet the criteria for ischemia. No clinical angina is noted. The final blood pressure was [162/60 ]mmHg. Myocardial perfusion protocol. [11.2 ] mCi of technetium 99m sestamibi was injected at rest. 0.4 mg of regadenoson was infused per usual protocol. At peak infusion [32.1] mCi of technetium 99m sestamibi was injected stress images were obtained stress and rest images were reconstructed and compared in the short axis vertical long and horizontal long axis. Gated images were also obtained. Perfusion SPECT analysis: Review of the stress images demonstrate normal uptake of tracer noted in all areas of the myocardium. The resting images similar demonstrated normal uptake of tracer noted in all areas of the myocardium. No areas of reversibility are noted to suggest ischemia and no previous infarct is noted. Gated SPECT analysis: The gated ejection fraction is [87%]. Conclusion: [Normal] pharmacologic myocardial perfusion stress test. [Preserved] ejection fraction. l
--- NOTE | 2025-02-04 14:19 | CASEMGMT ---
DARI GARCIA Assessment Face to Face with patient for initial transition planning/care coordination assessment. DARI GARCIA introduced self and role at [facility], pt voices understanding. Pt is A&Ox4 and is resting comfortably in bed and is calm. Pts daughter at bedside. Care providers, pharmacy, and demographics verified. Admitting dx: CP, Coffee Ground Emesis LACE Strata: 2 PCP: Jaylen Specialists: Denies Preferred Pharmacy: [facility] Insurance: [employer] [facility] Prescription Benefit: Yes LNOK: Jose (W), Letitia (Daughter) Living Arrangements: Pt lives with his and daughter in a single story home with 2 steps to enter ADLs/IADLs: Pt states that he is entirely indep and denies concerns. 6-Click score is 22 and no therapy ordered Transportation: self, daughter, DME: Home oxygen through [employer]. Dominguez verifies that the pts current order states 3LPM with exertion via NC only. Pt has a concentrator, portable tanks, pulse ox, cane, fww, WC, shower chair, and grab bars HHC/SNF: Denies hx or needs Pt?s goal: Home Plan: Home, follow for updated o2 Rx. Pt is currently on RA. Pt is scheduled for an EGD today. Dr. Unger states that the pt will be here through the weekend. However, at this time, the pt denies the need for HH or OP Tx. Pt states that he feels safe returning home with his family's support once medically ready and denies further concerns now. CM to follow. Mike Hanley RN, CM
[2025-02-04 14:40] LABS: Cholesterol 109 mg/dL (<=200); High Density Lipoprotein 34 mg/dL; Low Density Lipoprotein Calc. 60 mg/dL; Triglycerides 76 mg/dL; Very Low Density Lipoprotein 15 mg/dL (5-40); cholesterol:hdl ratio screen 3.22
--- NOTE | 2025-02-04 15:54 | PCM.PRE.AN2 ---
ASA Classification* ASA Classification ASA Classification: 4 and E Assessment & Plan Anesthesia* Anesthesia Assessment Anesthesia Assessment: Discussed sedation and/or anesthesia options, risks, benefits, and alternatives with patient/parents/legal guardian/POA. Questions invited. The patient/parents/legal guardian/POA seems to understand and agrees to proceed with anesthesia plan. Reviewed the physical assessment, medical history, allergy history and patient home medications list prior to surgery/procedure/anesthetic and documented any changes. Performed airway and anesthesia risk assessments. Anesthesia Type Anesthesia Type: MAC Anesthesia Focused Assessment* Temperature: 98.8 F Pulse Rate: 96 Blood Pressure: 116/76 Respiratory Rate: 18 Pulse Ox: 93 Oxygen Flow Rate (L/min): 2 Vital signs additional comments: Echocardiogram 02/03/2025. Severe aortic valve stenosis 0.9 cm?. Ejection fraction 55%. EKG sinus bradycardia 51 with right bundle branch block. Airway Assessment Mouth opens: >3 cm Mallampati Score: II Labs Anesthesia Preop lab: CBC WBC 7.4 K/mm3 (4.4-11.0) 02/04/25 06:41 02/04/25 RBC 3.98 M/mm3 (4.6-6.2) L 02/04/25 06:41 02/04/25 Hgb 12.9 g/dL (13.0-16.5) L 02/04/25 06:41 02/04/25 Hct 39.0 % (40-54) L 02/04/25 06:41 02/04/25 Plt Count 156 K/mm3 (150-450) 02/04/25 06:41 02/04/25 CHEMISTRY Potassium 4.2 mmol/L (3.3-5.1) 02/04/25 06:41 02/04/25 Sodium 137 mmol/L (133-145) 02/04/25 06:41 02/04/25 Magnesium 1.6 mg/dL (1.8-2.4) L 10/04/14 06:00 10/04/14 Phosphorus 3.7 mg/dL (2.5-4.9) 10/03/14 05:06 10/03/14 BUN 19 mg/dL (4-19) 02/04/25 06:41 02/04/25 Creatinine 0.82 mg/dL (0.70-1.20) 02/04/25 06:41 02/04/25 Glucose 111 mg/dL (70-99) H 02/04/25 06:41 02/04/25 TSH 1.570 uIU/mL (0.300-4.200) 02/04/25 06:41 02/04/25 COAG PT 13.6 SECONDS (11.7-14.9) 02/04/15 21:50 02/04/15 Pre-Assessment Diagnosis/Proposed Procedure Planned Operative Procedure(s): EGD Anesthesia History Anesthesia History - solution designer: Anesthesia History - solution designer Hx Hospitalization No 11/29/15 19:35 Any Problems With Anesthesia No 02/03/25 21:44 Cholinesterase deficiency No 02/03/25 21:44 You/Your Family Experience No 02/03/25 21:44 fever (hyperthermia) with Relationship Recent Exposure to Contagious No 02/03/25 21:44 Disease Does patient have nerve No 02/03/25 21:44 stimulator Patient instructed to have No 02/03/25 21:44 device shut off --Does patient have Pacemaker or ICD? When Was Last Pacemaker Check QUESTION #4 FULL TEXT: You/Your Family Experience fever (hyperthermia) with Anesthesia Last Oral Intake Last Oral intake: Last Oral Intake NPO since Meds taken in AM with sips of water? Meds patient instructed to take am of surgery PONV PONV - solution designer: PONV - solution designer Female HX of Motion Sickness HX of N/V After Surgery Non-Smoker Duration of Surgery greater than 60 minutes Number of Risk Factors PONV Score Height & Weight Height & Weight: Anesthesia: Height & Weight Height 6 ft 02/04/25 09:44 Weight: 70.9 kg 02/04/25 09:44 Body Mass Index (BMI) 21.2 02/04/25 06:56 Respiratory Assessment Respiratory Assessment - solution designer: Respiratory Tract Infection Hx - solution designer Hx Respiratory Tract Infection No 02/03/25 21:44 STOP Sleep Apnea STOP Sleep Apnea - solution designer: STOP Sleep Apnea - solution designer Hx Hypertension Yes: MEDS 02/03/25 20:53 Hx Sleep Apnea No 02/03/25 20:53 CPAP No 02/03/25 20:53 BIPAP No 02/03/25 20:53 Do you snore loudly (louder No 02/03/25 20:53 than talking or can be heard Do you often feel tired/ No 02/03/25 20:53 fatigued/ sleepy during daytime? Has anyone observed you stop No 02/03/25 20:53 breathing during sleep? STOP Results Negative 02/03/25 20:53 QUESTION #5 FULL TEXT : Do you snore loudly (louder than talking or can be heard through closed doors)? 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 Specify any problems Hx of Preganancy in last 3 N/A 02/03/25 20:53 Months Nurse Filling Out Transfusion JGALLOWAY 02/03/25 20:53 & Questions: Date: 02/03/25 02/03/25 20:53 Time: 21:02 02/03/25 20:53 Patient unable to answer at this time (ie. confused, unrespo /Reproduction History /Reproductive History - solution designer: /Reproductive Hx- solution designer Hx Now No 02/03/25 21:44 Gestational Age (in weeks): EDC: Hx Hx Para Hx Section SAB No 02/03/25 21:44 Active Medications Active Medications: Current Medications Generic Name Dose Route Start Last Admin Trade Name Freq PRN Reason Stop Dose Admin Acetaminophen 650 mg 02/03/25 20:58 Acetaminophen 325 Mg Tablet PO Q6H PRN PRN Pain 1-10 Or Fever >100.7 Aspirin 81 mg 02/04/25 08:00 02/04/25 10:21 Aspirin E.C. 81 Mg Tablet PO Not Given BREAKFAST NAVI Pantoprazole Sodium 40 mg/ 100 mls @ 330 mls/hr 02/03/25 22:00 02/04/25 11:00 Sodium Chloride IV Infused Q12 NAVI Infusion Sodium Chloride 250 mls @ 15 mls/hr 02/03/25 21:00 02/04/25 11:17 IV 0 mls/hr .[id number] PRN Infusion Saline Flush Sodium Chloride 250 mls @ 15 mls/hr 02/03/25 21:00 IV .[id number] PRN Additional IVPB Infusion Meclizine HCl 25 mg 02/03/25 20:58 Meclizine Hcl 25 Mg Tablet PO DAILY PRN PRN vertigo Nitroglycerin 0.4 mg 02/03/25 20:58 02/04/25 03:05 Nitroglycerin (Inpatient Use) 0.4 Mg Tab.Subl SL 0.4 mg Q5M PRN Administration CARDIAC/CHEST PAIN Ondansetron HCl 4 mg 02/03/25 20:58 02/04/25 06:59 Ondansetron 4 Mg/2 Ml Vial IV 4 mg Q8H PRN PRN Administration NAUSEA/VOMITING Oxycodone HCl 2.5 - 5 mg 02/03/25 20:58 Oxycodone 5 Mg Tablet PO Q4H PRN PRN Pain Score 4-10 Prochlorperazine Edisylate 5 mg 02/03/25 20:58 Prochlorperazine 10 Mg/2 Ml Vial IV Q4H PRN PRN Breakthrough Nausea/Vomiting Propranolol HCl 10 mg 02/03/25 22:00 02/04/25 10:41 Propranolol 10 Mg Tablet PO 10 mg BID NAVI Administration Protocol Sodium Chloride 10 - 40 ml 02/03/25 21:00 02/04/25 10:40 0.9% Saline Lock 10 Ml Syringe IV 10 ml UD PRN Administration SALINE FLUSH [facility] Medical History Former smoker Interstitial pulmonary fibrosis Tremor Rheumatic fever Home Medications ?Medication ?Instructions ?Recorded ?Last Taken ?Type propranolol 10 mg tablet 10 mg PO BID #60 TABLETS 02/07/15 06/01/15 07:00 Rx meclizine 25 mg tablet 25 mg PO DAILY PRN PRN vertigo 07/28/24 Unknown History Allergy/AdvReac Type Severity Reaction Status Date / Time No Known Allergies Allergy Verified 02/03/25 14:30 Family History Son Cancer CVA (cerebral vascular accident) Father Heart disease Surgical History History of tonsillectomy Social History Smoking Status: Former smoker how long ago did patient quit smokin years ago Review of Systems (Anesthesia) ROS Narrative System reviewed and no additional complaints, except as documented.
[2025-02-04] MEDS: Lactated Ringers 1,000 ML 15 ML IV (15:56)
--- NOTE | 2025-02-04 16:03 | PCM.PN.HOSP ---
Reason for Visit Reason for Visit: Diagnoses Chest pain, unspecified (02/03/25) Subjective Subjective ongoing abdominal discomfort especially RUQ and epigastric. nausea overnight without further vomiting. no chest pain or SOB. Objective Data Objective Data Vital Signs: Vital Signs Temp Pulse Resp BP Pulse Ox O2 Del Method O2 Flow Rate 98.8 F 96 18 116/76 93 Room Air 2 02/04/25 15:56 02/04/25 15:56 02/04/25 15:56 02/04/25 15:56 02/04/25 15:56 02/04/25 15:33 02/04/25 15:56 Oxygen Flow Rate (L/min) 2 Oxygen Delivery Method Room Air Weight: 70.9 kg Body Mass Index (BMI) 21.2 Intake & Output: Intake and Output for Last 24 Hours 02/02/25 02/03/25 02/04/25 23:59 23:59 23:59 Intake Total 100 / 460 464.25 / 464.25 Output Total 1650 / 1650 Balance 100 / 160 -1185.75 / -1185.75 Lab / Micro Data 02/04/25 06:41 02/04/25 06:41 Labs: Laboratory Results - last 24 hr 02/03/25 14:30: Sodium 138, Potassium 4.2, Chloride 103, Carbon Dioxide 21.7, Anion Gap 13, BUN 22 H, Creatinine 0.88, Estim Creat Clear Calc 62.24, Est GFR (MDRD) Non-Af 84, BUN/Creatinine Ratio 24.7 H, Glucose 114 H, Calcium 9.2, Total Bilirubin 0.59, AST 21, ALT 12, Alkaline Phosphatase 102, Troponin T High Sens 15, Total Protein 7.3, Albumin 4.1, Globulin 3.3, Albumin/Globulin Ratio 1.3, Lipase 24 02/03/25 16:57: Troponin T Hi Sens 2 Hr 16 02/03/25 19:00: Troponin T Hi Sens 4Hr 16 02/04/25 06:41: WBC 7.4, RBC 3.98 L, Hgb 12.9 L, Hct 39.0 L, MCV 98.0 H, MCH 32.4 H, MCHC 33.1, RDW Std Deviation 48.6 H, RDW Coeff of Roe 13.5, Plt Count 156, MPV 9.4, Immature Gran % (Auto) 0.500, Neut % (Auto) 78.9 H, Lymph % (Auto) 13.1 L, Hancock % (Auto) 6.3, Eos % (Auto) 0.9, Baso % (Auto) 0.3, Absolute Neuts (auto) 5.9, Absolute Lymphs (auto) 0.97, Nucleated RBC % 0, Sodium 137, Potassium 4.2, Chloride 101, Carbon Dioxide 24.1, Anion Gap 12, BUN 19, Creatinine 0.82, Estim Creat Clear Calc 66.05, Est GFR (MDRD) Non-Af 86, BUN/Creatinine Ratio 22.6 H, Glucose 111 H, Calcium 9.2, Triglycerides 76, Cholesterol 109, LDL Cholesterol, Calc 60, VLDL Cholesterol 15, HDL Cholesterol 34 L, Cholesterol/HDL Ratio 3.22, TSH 1.570 Radiography Diagnostic Testing: Radiology Impression Echocardiogram 02/03/25 20:58 Interpretation Summary Concentric left ventricular hypertrophy. Left ventricular systolic function is normal. The left ventricular ejection fraction is 55 %. No mitral valve stenosis Trivial mitral valve regurgitation Moderate mitral annular calcification Mild tricuspid valve insufficiency. Aortic valve is heavily calcified Severe aortic valve stenosis PA 0.9 cm??. Mean/peak gradient 29/48 mmHg. Mild-Moderate (1-2+) aortic valve insufficiency. Ordering Physician: Luis Unger Referring Physician: Laurent York Chi Performed By: Irina Jamison, RDCS Abdomen/Pelvis CT 02/04/25 00:05 IMPRESSION: Markedly distended urinary bladder with bilateral hydronephrosis and hydroureter bilaterally worse on the right side. Large left-sided Bochdalek hernia. OVERALL FINAL ASSESSMENT: . Reading Location: [facility] Physical Exam Const alert, oriented x3 and no apparent distress HEENT head/scalp atraumatic Head and Scalp: normocephalic Eyes PERRL Resp normal respiratory effort, no retractions, no use of accessory muscles and clear to auscultation bilaterally Cardio regular rate and regular rhythm; Negative for no murmurs GI Palpation: tender epigastric and RUQ Extremity normal to inspection General Extremity: Negative for edema Psych affect normal Assessment & Plan Assessment/Plan (1) Chest pain: PLAN: 1. Chest pain - troponin negative. Stress test negative. Echo shows severe aortic stenosis and heavy calcification with 1-2+ CAMACHO. EF 55%. CP resolved. 2. Afib overnight - episodic. pt on propranolol. asymptomic. Cannot have blood thinner at this point due to concern for GI bleed. 3. Coffee ground emesis - GI consulted. Pt going to EGD today. Continue protonix drip. CT abdomen with large left sided Bochdalek hernia. Hgb 12.9 4. BL hydronephrosis with hydroureter- CT shows hydronephrosis and distended bladder. pt will need cath 5. Pulmonary fibrosis - not on medication for this 6. Hx Benign essential tremor - on propranolol DVT ppx: SCDs This patient was seen by Jose Cain PA-C under the supervision of Doctor Ute. (2) Coffee ground emesis:
--- NOTE | 2025-02-04 17:04 | PCM.PN.BLA ---
Progress Note Patient has been n.p.o. and waiting for his upper endoscopy today. Physical Exam Const alert, oriented x3, no apparent distress and healthy appearing General Appearance: cooperative GI normal to inspection, nondistended, normoactive bowel sounds, soft to palpation, non-tender and non-distended Percussion: normal to percussion Rectal Exam: deferred Assessment & Plan Assessment/Plan (1) Coffee ground emesis: PLAN: 84-year-old with history of large hiatal hernia and COPD who comes in with an acute cough and coffee-ground emesis. He will undergo an upper endoscopy. He was explained alternatives, risk and benefits including withstanding bleeding, infection, sepsis, perforation, need for charge and . He will have an ASA of 3. Visit Charges Inpatient E&M: 22918 Subs Hosp L2
--- NOTE | 2025-02-04 17:55 | OP.CCLET_ITS ---
02/04/2025 Laurent York MD [address] [place] [address] Re : Upper GI endoscopy procedure for Diego De Paz Dear Dr. York This procedure was performed on Tuesday, February 04, 2025. My impressions and recommendations are as follows: Impressions : - LA Grade D erosive esophagitis with bleeding. - Gastroparesis. - A large amount of food (residue) in the stomach. - No gross lesions in the duodenal bulb. - No specimens collected. Recommendations : - [facility]. - Clear liquid diet. - Continue present medications. - Gastric emptying study My findings are described in the full procedure note, which is enclosed. If I can be of further assistance, please feel free to contact me at . Sincerely, Christ Longoria, 02/04/2025 5:55:21 PM This report has been signed electronically.
--- NOTE | 2025-02-04 17:55 | OP.EGD_ITS ---
Patient Name: Diego De Paz Procedure Date: 02/04/2025 5:35 PM Date of : 1940 Age: 84 Procedure: Upper GI endoscopy Indications: Coffee-ground emesis, Hematemesis Providers: Christ Longoria DO Medicines: Monitored Anesthesia Care Patient Profile: This is an 84 year old male. Refer to note in patient chart for documentation of history and physical. Patient has symptoms of acute vomiting. Complications: No immediate complications. Procedure: Pre-Anesthesia Assessment: - Prior to the procedure, a History and Physical was performed, and patient medications and allergies were reviewed. The patient is competent. The risks and benefits of the procedure and the sedation options and risks were discussed with the patient. All questions were answered and informed consent was obtained. Patient identification and proposed procedure were verified by the physician in the pre-procedure area. Mental Status Examination: alert and oriented. Airway Examination: normal oropharyngeal airway and neck mobility. Respiratory Examination: clear to auscultation. CV Examination: normal. Prophylactic Antibiotics: The patient does not require prophylactic antibiotics. Prior Anticoagulants: The patient has taken Eliquis (apixaban), last dose was day of procedure. ASA Grade Assessment: III - A patient with severe systemic disease. After reviewing the risks and benefits, the patient was deemed in satisfactory condition to undergo the procedure. The anesthesia plan was to use monitored anesthesia care (MAC). Immediately prior to administration of medications, the patient was re-assessed for adequacy to receive sedatives. The heart rate, respiratory rate, oxygen saturations, blood pressure, adequacy of pulmonary ventilation, and response to care were monitored throughout the procedure. The physical status of the patient was re-assessed after the procedure. After obtaining informed consent, the endoscope was passed under direct vision. Throughout the procedure, the patient's blood pressure, pulse, and oxygen saturations were monitored continuously. The gastroscope was introduced through the mouth, and advanced to the second part of duodenum. The upper GI endoscopy was accomplished without difficulty. The patient tolerated the procedure well. Scope In: 5:46:58 PM Scope Out: 5:48:01 PM Total Procedure Duration Time 0 hours 1 minute 3 seconds Findings: LA Grade D (one or more mucosal breaks involving at least 75% of esophageal circumference) esophagitis with bleeding was found. Suspect gastroparesis due to absence of peristalsis, patient symptoms and retained gastric contents. A large amount of food (residue) was found in the entire examined stomach. No gross lesions were noted in the duodenal bulb. Impression: - LA Grade D erosive esophagitis with bleeding. - Gastroparesis. - A large amount of food (residue) in the stomach. - No gross lesions in the duodenal bulb. - No specimens collected. Recommendation: - [facility]. - Clear liquid diet. - Continue present medications. - Gastric emptying study Procedure Code(s): --- Professional --- 13174, Esophagogastroduodenoscopy, flexible, transoral; diagnostic, including collection of specimen(s) by brushing or washing, when performed (separate procedure) CPT copyright 2021 [employer]. All rights reserved. 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 Christ Longoria DO 02/04/2025 5:55:21 PM This report has been signed electronically. Number of Addenda: 0 Note Initiated On: 02/04/2025 5:35 PM
--- NOTE | 2025-02-04 17:58 | PCM.POST.ANE ---
Anesthesia: Postop Eval I Current Vital Signs Temperature: 98.4 F Pulse Rate: 92 Blood Pressure: 116/76 Respiratory Rate: 18 Pulse Ox: 93 Assessment Airway patent: Yes Spontaneous unlabored respirations: Yes Mental status: Awake nausea: No Vomiting: No Anesthesia Complication: No Fluid Hydration Crystalloid volume administer (ml): 20 Total IV fluid infused: 20 Progress Note Anesthesia document: Postop Eval 1 completed: Yes
--- NOTE | 2025-02-04 18:00 | PCM.POSTANE2 ---
Anesthesia Postop Eval I Sum Postop Eval Completion status Anesthesia document: Postop Eval 1 completed: Yes Anesthesia Postop Eval I Summary Anesthesia Postop Eval I Summary: Anesthesia Postop Eval I: Assessment Summary Airway patent Yes 02/04/25 17:59 Spontaneous unlabored Yes 02/04/25 17:59 respirations Mental status Awake 02/04/25 17:59 nausea No 02/04/25 17:59 Vomiting No 02/04/25 17:59 Anesthesia Postop Eval I: Fluid Summary Crystalloid volume administer 20 02/04/25 17:59 (ml) Colloids volume administered ( ml) Blood Product volume administered (ml) Total IV fluid infused 20 02/04/25 17:59 Anesthesia Postop Eval I: Summary Notes Anesthesia Complication No 02/04/25 17:59 Anesthesia Complication Comment: Post-operative progress note Anesthesia: Postop Eval II Evaluation Mental status: Awake Pain Level: 0 nausea: No Vomiting: No
[2025-02-05 06:47] LABS: Absolute Lymphocyte Count 1.18 X10^3/uL (0.83-4.51); Absolute Neutrophil Count 4.5 X10^3/uL (2.0-7.7); Basophil# 0.01 X10^3/uL; Basophil% 0.2 % (0-1); Eosinophil# 0.08 X10^3/uL; Eosinophils% 1.3 % (0-5); Hematocrit 34.1 % (40-54); Hemoglobin 11.3 g/dL (13.0-16.5); Lymphocyte # 1.18 X10^3/ul (0.83-4.51); Lymphocyte % 18.7 % (19-41); Mean Corp Hgb Conc 33.1 g/dL (32-36); Mean Corpuscular Hgb 32.4 pg (27.0-32.0); Mean Corpuscular Volume 97.7 fL (80-94); Mean Platelet Vol. 10.4 fl (6.2-12.0); Monocyte# 0.51 X10^3/uL; Monocyte% 8.1 % (0-10); NRBC Flagged by Analyzer 0 % (0-5); Neutrophil # 4.52 X10^3/uL (2.7-7.7); Neutrophil % 71.4 % (47-70); Platelet Count 147 K/mm3 (150-450); RBC Distribution Width CV 13.5 % (11.6-14.6); RBC Distribution Width SD 48.6 fl (35.1-43.9); Red Blood Count 3.49 M/mm3 (4.6-6.2); White Blood Count 6.3 K/mm3 (4.4-11.0)
[2025-02-05 07:00] VITALS: PULSE 97
[2025-02-05 09:33] VITALS: BP 116/73; PULSE 90; RESP 16; TEMP 36.8; O2SAT 94
[2025-02-05] MEDS: Propranolol 10 MG Tablet PO ×2 (09:34→21:05)
[2025-02-05] MEDS: Aspirin E.C. 81 MG Tablet PO (09:35)
[2025-02-05] MEDS: Pantoprazole Sodium 40 MG in 0.9% Normal Saline (100mL MB+) 100 ML 330 MG IV ×2 (09:37→21:05)
--- NOTE | 2025-02-05 09:43 | PCM.PN.HOSP ---
Subjective Subjective Doing well, feels a bit better than yesterday, continues to have his burning chest pain consistent with his baseline reflux Objective Data Objective Data Vital Signs: Vital Signs Temp Pulse Resp BP Pulse Ox O2 Del Method O2 Flow Rate 98.2 F 90 16 116/73 94 Room Air 2 02/05/25 09:33 02/05/25 09:33 02/05/25 09:33 02/05/25 09:33 02/05/25 09:33 02/05/25 09:33 02/04/25 15:56 Oxygen Flow Rate (L/min) 2 Oxygen Delivery Method Room Air Weight: 156 lb 4.924 oz Body Mass Index (BMI) 21.2 Intake & Output: Intake and Output for Last 24 Hours 02/04/25 02/05/25 02/06/25 03:59 03:59 03:59 Intake Total 460 / 460 204.25 / 204.25 120 / 120 Output Total 300 / 300 2750 / 2750 200 / 200 Balance 160 / 160 -2545.75 / -2545.75 -80 / -80 Lab / Micro Data 02/05/25 05:03 02/04/25 06:41 Labs: Laboratory Results - last 24 hr 02/04/25 06:41: Triglycerides 76, Cholesterol 109, LDL Cholesterol, Calc 60, VLDL Cholesterol 15, HDL Cholesterol 34 L, Cholesterol/HDL Ratio 3.22 02/05/25 05:03: WBC 6.3, RBC 3.49 L, Hgb 11.3 L, Hct 34.1 L, MCV 97.7 H, MCH 32.4 H, MCHC 33.1, RDW Std Deviation 48.6 H, RDW Coeff of Roe 13.5, Plt Count 147 L, MPV 10.4, Immature Gran % (Auto) 0.300, Neut % (Auto) 71.4 H, Lymph % (Auto) 18.7 L, [place] % (Auto) 8.1, Eos % (Auto) 1.3, Baso % (Auto) 0.2, Absolute Neuts (auto) 4.5, Absolute Lymphs (auto) 1.18, Nucleated RBC % 0 Radiography Diagnostic Testing: Radiology Impression Echocardiogram 02/03/25 20:58 Interpretation Summary Concentric left ventricular hypertrophy. Left ventricular systolic function is normal. The left ventricular ejection fraction is 55 %. No mitral valve stenosis Trivial mitral valve regurgitation Moderate mitral annular calcification Mild tricuspid valve insufficiency. Aortic valve is heavily calcified Severe aortic valve stenosis PA 0.9 cm??. Mean/peak gradient 29/48 mmHg. Mild-Moderate (1-2+) aortic valve insufficiency. Ordering Physician: Luis Unger Referring Physician: Laurent York Chi Performed By: Irina Jamison RDCS Abdomen/Pelvis CT 02/04/25 00:05 IMPRESSION: Markedly distended urinary bladder with bilateral hydronephrosis and hydroureter bilaterally worse on the right side. Large left-sided Bochdalek hernia. OVERALL FINAL ASSESSMENT: . Reading Location: [facility] Physical Exam Narrative General: Alert, Oriented x3, Cooperative, No apparent distress HEENT: Atraumatic, PERRLA, EOMI, Normocephalic Oral: Moist Mucosa Neck: Supple, No JVD Lungs: Diminished, Normal air movement, No rhonchi, No wheeze, No rales Cardiovascular: Regular rate, Regular Rhythm, Normal S1, Normal S2, No murmurs Abdomen: Soft, Non Tender, Non-Distended, No Hepato-splenomegaly Extremities: No edema, Capillary Refill Less than 3 Seconds Skin: No rashes, No breakdown Musculoskeletal: No Tenderness to Palpation of Joints or Extremities Neurological: No focal neurological deficits, Motor Exam 5/5 strength throughout, Sensory exam intact to light touch and pain Psych/Mental Status: Normal Affect, Appropriate Assessment & Plan Assessment/Plan (1) Chest pain: (2) Coffee ground emesis: PLAN: Plan 1. Erosive esophagitis ? She was having noncardiac chest pain with normal troponins, therefore no further cardiac workup indicated ? EGD on 02/04/2025 demonstrated grade D erosive esophagitis with bleeding as well as gastroparesis, of note his granddaughter was diagnosed with a paralyzed stomach ? He will need a gastric emptying study which will likely happen on Friday ? Continue with PPI 2. He did have an episode of A-fib but he is already on propranolol and cannot be on a blood thinner due to his GI bleed, will monitor and will plan for outpatient follow-up 3. Bilateral hydronephrosis and hydroureter with retention ? Currently has a Cooper in place ? Will attempt a voiding trial prior to discharge and will place on Flomax 4. Benign essential tremor ? Continue propranolol ? Stable DVT: SCDs Charges/Coding Visit Charges Inpatient E&M: 13256 Subs Hosp L2
[2025-02-05 12:34] VITALS: BP 149/100; PULSE 95; RESP 16; TEMP 36.8; O2SAT 96
[2025-02-05 17:20] VITALS: BP 141/79; PULSE 98; RESP 18; TEMP 36.8; O2SAT 98
[2025-02-05] MEDS: Calcium Carbonate 500 MG Tablet PO (17:31)
[2025-02-05] MEDS: Tamsulosin HCl 0.4 MG Capsule PO (17:32)
[2025-02-05 21:00] VITALS: BP 133/89; PULSE 98; RESP 18; TEMP 37.6; O2SAT 98
[2025-02-05] MEDS: 0.9% Saline Lock 10 ML Syringe IV (21:05)
--- NOTE | 2025-02-05 21:53 | PN_ITS ---
Progress Note The patient underwent an upper endoscopy yesterday. He complains some mild nausea and intermittent esophageal dysphagia associated with gastroesophageal reflux disease. Physical Exam Const alert, oriented x3, no apparent distress and healthy appearing General Appearance: cooperative GI normal to inspection, nondistended, normoactive bowel sounds, soft to palpation, non-tender and non-distended Percussion: normal to percussion Rectal Exam: deferred Assessment & Plan Assessment/Plan (1) Coffee ground emesis: (2) Erosive esophagitis: PLAN: Findings: LA Grade D (one or more mucosal breaks involving at least 75% of esophageal circumference) esophagitis with bleeding was found. Suspect gastroparesis due to absence of peristalsis, patient symptoms and retained gastric contents. A large amount of food (residue) was found in the entire examined stomach. No gross lesions were noted in the duodenal bulb. Impression: - LA Grade D erosive esophagitis with bleeding. - Gastroparesis. - A large amount of food (residue) in the stomach. - No gross lesions in the duodenal bulb. - No specimens collected. Recommendation: - [facility]. - Clear liquid diet. - Continue present medications. - Gastric emptying study 02/05/2025-recommend to start Carafate therapy to hopefully cold his esophagus. If that does not help thin visible still and GI cocktail with lidocaine can be ordered. Visit Charges Inpatient E&M: 35511 [facility] Hosp L3
[2025-02-06 03:10] VITALS: BP 126/85; PULSE 90; RESP 16; TEMP 37.2; O2SAT 93
[2025-02-06 06:16] LABS: Basophil# 0.01 X10^3/uL; Basophil% 0.1 % (0-1); Eosinophil# 0.08 X10^3/uL; Hematocrit 33.9 % (40-54); Hemoglobin 11.3 g/dL (13.0-16.5); Lymphocyte % 14.8 % (19-41); Mean Corp Hgb Conc 33.3 g/dL (32-36); Mean Corpuscular Hgb 32.3 pg (27.0-32.0); Mean Corpuscular Volume 96.9 fL (80-94); Mean Platelet Vol. 10.2 fl (6.2-12.0); Monocyte# 0.74 X10^3/uL; Monocyte% 9.1 % (0-10); NRBC Flagged by Analyzer 0 % (0-5); Neutrophil # 6.04 X10^3/uL (2.7-7.7); Neutrophil % 74.6 % (47-70); Platelet Count 136 K/mm3 (150-450); RBC Distribution Width CV 13.2 % (11.6-14.6); RBC Distribution Width SD 47.1 fl (35.1-43.9); White Blood Count 8.1 K/mm3 (4.4-11.0)
[2025-02-06 06:43] LABS: Anion Gap 12 (5-15); BUN 18 mg/dL (4-19); BUN/Creat Ratio 23.6 RATIO (10-20); Calcium,Total 9.3 mg/dL (7.6-11.0); Carbon Dioxide 24.8 mmol/L (21.0-32.0); Chloride 96 mmol/L (98-108); Creatinine, Serum 0.78 mg/dL (0.70-1.20); EST Glomerular Filtration Rate 87 (>60); Glucose 92 mg/dL (70-99); Potassium 4.3 mmol/L (3.3-5.1); Sodium Level 133 mmol/L (133-145)
[2025-02-06 10:00] VITALS: BP 109/84; PULSE 92; PULSE 96; RESP 14; TEMP 36.4; O2SAT 100
[2025-02-06] MEDS: Aspirin E.C. 81 MG Tablet PO (10:29)
[2025-02-06] MEDS: Pantoprazole Sodium 40 MG in 0.9% Normal Saline (100mL MB+) 100 ML 330 MG IV ×2 (10:29→21:13)
[2025-02-06] MEDS: Propranolol 10 MG Tablet PO ×2 (10:29→21:13)
--- NOTE | 2025-02-06 11:22 | PN.HOSP_ITS ---
Subjective Subjective Doing well, no issues overnight. Plan for gastric emptying study on Friday Objective Data Objective Data Vital Signs: Vital Signs Temp Pulse Resp BP Pulse Ox O2 Del Method O2 Flow Rate 97.5 F L 92 14 109/84 H 100 Room Air 2 02/06/25 10:00 02/06/25 10:00 02/06/25 10:00 02/06/25 10:00 02/06/25 10:00 02/06/25 10:00 02/04/25 15:56 Oxygen Flow Rate (L/min) 2 Oxygen Delivery Method Room Air Weight: 156 lb 4.924 oz Body Mass Index (BMI) 21.2 Intake & Output: Intake and Output for Last 24 Hours 02/05/25 02/06/25 02/07/25 03:59 03:59 03:59 Intake Total 204.25 / 204.25 1966.50 / 1966.50 620 / 620 Output Total 2750 / 2750 950 / 950 1500 / 1500 Balance -2545.75 / -2545.75 1016.50 / 1016.50 -880 / -880 Lab / Micro Data 02/06/25 05:10 02/06/25 05:10 Labs: Laboratory Results - last 24 hr 02/06/25 05:10: WBC 8.1, RBC 3.50 L, Hgb 11.3 L, Hct 33.9 L, MCV 96.9 H, MCH 32.3 H, MCHC 33.3, RDW Std Deviation 47.1 H, RDW Coeff of Roe 13.2, Plt Count 136 L, MPV 10.2, Immature Gran % (Auto) 0.400, Neut % (Auto) 74.6 H, Lymph % (Auto) 14.8 L, [place] % (Auto) 9.1, Eos % (Auto) 1.0, Baso % (Auto) 0.1, Absolute Neuts (auto) 6.0, Absolute Lymphs (auto) 1.20, Nucleated RBC % 0, Sodium 133, Potassium 4.3, Chloride 96 L, Carbon Dioxide 24.8, Anion Gap 12, BUN 18, Creatinine 0.78, Estim Creat Clear Calc 67.70, Est GFR (MDRD) Non-Af 87, B UN/Creatinine Ratio 23.6 H, Glucose 92, Calcium 9.3 Physical Exam Narrative General: Alert, Oriented x3, Cooperative, No apparent distress HEENT: Atraumatic, PERRLA, EOMI, Normocephalic Oral: Moist Mucosa Neck: Supple, No JVD Lungs: Diminished, Normal air movement, No rhonchi, No wheeze, No rales Cardiovascular: Regular rate, Regular Rhythm, Normal S1, Normal S2, No murmurs Abdomen: Soft, Non Tender, Non-Distended, No Hepato-splenomegaly Extremities: No edema, Capillary Refill Less than 3 Seconds Skin: No rashes, No breakdown Musculoskeletal: No Tenderness to Palpation of Joints or Extremities Neurological: No focal neurological deficits, Motor Exam 5/5 strength throughout, Sensory exam intact to light touch and pain Psych/Mental Status: Normal Affect, Appropriate Assessment & Plan Assessment/Plan (1) Chest pain: (2) Coffee ground emesis: PLAN: Plan 1. Erosive esophagitis ? He was having noncardiac chest pain with normal troponins, therefore no further cardiac workup indicated ? EGD on 02/04/2025 demonstrated grade D erosive esophagitis with bleeding as well as gastroparesis, of note his granddaughter was diagnosed with a paralyzed stomach ? He will need a gastric emptying study which will likely happen tomorrow ? Continue with PPI 2. He did have an episode of A-fib but he is already on propranolol and cannot be on a blood thinner due to his GI bleed, will monitor and will plan for outpatient follow-up 3. Bilateral hydronephrosis and hydroureter with retention ? Currently has a Cooper in place ? Will attempt a voiding trial prior to discharge and will place on Flomax 4. Benign essential tremor ? Continue propranolol ? Stable DVT: SCDs Charges/Coding Visit Charges Inpatient E&M: 48088 Subs Hosp L2
[2025-02-06] MEDS: Tamsulosin HCl 0.4 MG Capsule PO (16:10)
[2025-02-06] MEDS: Lactated Ringers 1,000 ML 15 ML IV (16:10)
[2025-02-06 16:12] VITALS: BP 121/85; PULSE 96; RESP 18; TEMP 2.6; TEMP 36.7; O2SAT 92
[2025-02-06] MEDS: MELATONIN 10 MG TABLET PO (21:13)
[2025-02-06 21:15] VITALS: BP 103/75; PULSE 93; RESP 18; TEMP 37.7; O2SAT 94
[2025-02-07 03:20] VITALS: BP 106/77; PULSE 84; RESP 16; TEMP 36.7; O2SAT 95
--- NOTE | 2025-02-07 07:12 | NM_ITS ---
PROCEDURE: GASTRIC EMPTYING STUDY 02/07/2025 REASON FOR EXAM: GASTROPARESIS TECHNIQUE: The patient ingested a standard meal of radiopharmaceutical and oatmeal and water. Total time taken to ingest the meal was minutes. There was no vomiting postprandially. Anterior and posterior planar images of the upper abdomen were obtained for 1 minute immediately following the meal at 1h, 2h and 4h if more than 10% of the activity persisted within the stomach. Regions of interest were drawn, and a geometric mean was used to calculate a [id number]. RADIOPHARMACEUTICAL: Sulfur colloid DOSE 1mCi FINDINGS: Percent activity remaining in stomach: 1 hour 52 % (normal 37-90%) NM/Gastric Emptying Study IMPRESSION: Normal gastric emptying examination. Reading Location: [place] [address]
[2025-02-07 09:14] VITALS: BP 103/75; PULSE 90; RESP 18; TEMP 36.7; O2SAT 94
[2025-02-07] MEDS: Pantoprazole Sodium 40 MG in 0.9% Normal Saline (100mL MB+) 100 ML 330 MG IV (09:19)
--- NOTE | 2025-02-07 09:58 | PCM.PN.HOSP ---
Subjective Subjective No issues overnight, feeling better today. Objective Data Objective Data Vital Signs: Vital Signs Temp Pulse Resp BP Pulse Ox O2 Del Method O2 Flow Rate 98.1 F 90 18 103/75 94 Room Air 2 02/07/25 09:14 02/07/25 09:14 02/07/25 09:14 02/07/25 09:14 02/07/25 09:14 02/07/25 09:14 02/04/25 15:56 Oxygen Flow Rate (L/min) 2 Oxygen Delivery Method Room Air Weight: 156 lb 4.924 oz Body Mass Index (BMI) 21.2 Intake & Output: Intake and Output for Last 24 Hours 02/06/25 02/07/25 02/08/25 03:59 03:59 03:59 Intake Total 1966.50 / 1966.50 1380 / 1380 Output Total 950 / 950 2375 / 2375 225 / 225 Balance 1016.50 / 1016.50 -995 / -995 -225 / -225 Lab / Micro Data 02/06/25 05:10 02/06/25 05:10 Physical Exam Narrative General: Alert, Oriented x3, Cooperative, No apparent distress HEENT: Atraumatic, PERRLA, EOMI, Normocephalic Oral: Moist Mucosa Neck: Supple, No JVD Lungs: Diminished, Normal air movement, No rhonchi, No wheeze, No rales Cardiovascular: Regular rate, Regular Rhythm, Normal S1, Normal S2, No murmurs Abdomen: Soft, Non Tender, Non-Distended, No Hepato-splenomegaly Extremities: No edema, Capillary Refill Less than 3 Seconds Skin: No rashes, No breakdown Musculoskeletal: No Tenderness to Palpation of Joints or Extremities Neurological: No focal neurological deficits, Motor Exam 5/5 strength throughout, Sensory exam intact to light touch and pain Psych/Mental Status: Normal Affect, Appropriate Assessment & Plan Assessment/Plan (1) Chest pain: (2) Coffee ground emesis: PLAN: Plan 1. Erosive esophagitis ? He was having noncardiac chest pain with normal troponins, therefore no further cardiac workup indicated ? EGD on 02/04/2025 demonstrated grade D erosive esophagitis with bleeding as well as gastroparesis, of note his granddaughter was diagnosed with a paralyzed stomach ?Will plan for gastric emptying study today, depending on result can dictate further care here in the hospital or discharge home with outpatient follow-up ? Continue with PPI 2. He did have an episode of A-fib but he is already on propranolol and cannot be on a blood thinner due to his GI bleed, will monitor and will plan for outpatient follow-up 3. Bilateral hydronephrosis and hydroureter with retention ? Currently has a Cooper in place ? Will attempt a voiding trial prior to discharge and will place on Flomax 4. Benign essential tremor ? Continue propranolol ? Stable DVT: SCDs Charges/Coding Visit Charges Inpatient E&M: 03127 Subs Hosp L2
--- NOTE | 2025-02-07 15:58 | PCM.DC ---
Discharge Instructions Diet Discharge Diet: No restrictions DC O2, CPAP, BIPAP needs Home O2 Discharge instructions: No Dressing / Incision Discharge Activity: Return to Normal Activity Dressing / Incision Call your doctor if you observe: Fever of 101 or Higher, Shortness of breath, Dizziness, Fainting spells, Swelling in the ankles, Chest pain and Increased palpitations (irregular heartbeat) Follow Up Care Test Results: Test results from this visit will be discussed in further detail at your follow-up appointment, if applicable. Discharge Plan Admission Admit Date/Time: 02/03/25 20:58 Attending Provider: Josh Elam Primary Care Provider: Laurent York Chi Consult[employer] Providers: Luis Unger Discharge Orders/Prescriptions Prescriptions: New tamsulosin 0.4 mg Capsule 0.4 mg PO DAILY@1730 30 Days Qty: 30 0RF pantoprazole [Protonix] 40 mg tablet,delayed release (DR/EC) 40 mg PO DAILY Qty: 30 0RF No Action meclizine 25 mg tablet 25 mg PO DAILY PRN PRN (Reason: vertigo) propranolol 10 MG tablet 10 mg PO BID Qty: 60 6RF Patient Comments: heart/TREMORS Referrals / Follow Up: Christ Longoria DO [Med Staff - Active Staff] - Within 1 Month Laurent York Chi, MD [Primary Care Provider] - Within 1 Week Disposition Disposition (needs filled in before D/C Order can be placed): Home, Self Care
--- NOTE | 2025-02-07 16:29 | CASEMGMT ---
Patient has order for discharge. RN CM in to discuss needs at discharge, at bedside. Patient and deny needs at discharge. Patient had no further questions or concerns.
[2025-02-07 17:14] VITALS: BP 110/65; PULSE 90; RESP 16; TEMP 36.4; O2SAT 94
--- NOTE | 2025-02-07 17:29 | PCM.DC.SUM ---
Providers Date of Admission: 02/03/25 Primary Care Physician: Dr. Laurent York MD Consultations 02/03/25 20:58 Consult: Gastroenterology Routine Consulting Provider: [facility] Reason for Consult: coffee ground emesis. weight loss EMERGENT Consult: No MD Notified: Yes Date Notified: 02/03/25 Time Notified: 18:45 Method of Notification: Text Reason For Visit: CHEST PAIN Diagnosis Discharge Diagnosis (1) Chest pain: Status: Acute Code(s): R07.9 - Chest pain, unspecified (2) Coffee ground emesis: Status: Acute Code(s): K92.0 - Hematemesis Plan 1. Erosive esophagitis ? He was having noncardiac chest pain with normal troponins, therefore no further cardiac workup indicated ? EGD on 02/04/2025 demonstrated grade D erosive esophagitis with bleeding as well as gastroparesis, of note his granddaughter was diagnosed with a paralyzed stomach ?Will plan for gastric emptying study today, depending on result can dictate further care here in the hospital or discharge home with outpatient follow-up ? Continue with PPI 2. He did have an episode of A-fib but he is already on propranolol and cannot be on a blood thinner due to his GI bleed, will monitor and will plan for outpatient follow-up 3. Bilateral hydronephrosis and hydroureter with retention ? Currently has a Cooper in place ? Will attempt a voiding trial prior to discharge and will place on Flomax 4. Benign essential tremor ? Continue propranolol ? Stable DVT: SCDs Medications at Discharge Home Medications propranolol 10 mg tablet 10 mg PO BID #60 TABLETS 02/07/15 meclizine 25 mg tablet 25 mg PO DAILY PRN PRN vertigo 07/28/24 pantoprazole 40 mg tablet,delayed release (Protonix) 40 mg PO DAILY #30 tabs 02/07/25 tamsulosin 0.4 mg capsule 0.4 mg PO DAILY@1730 30 days #30 caps 02/07/25 Hospital Course Operations None Procedures EGD Summary of Care Provided Minutes Spent on Discharge: 36 Hospital Course: Per HPI: ELMER RAMIREZ, is a 84 M with pmhx rheumatic fever with residual heart murmur, pulmonary fibrosis and benign essential tremor who presents to the ER with chest pain. This began yesterday AM. He describes sharp pain in the mid sternal area and midepigastric region. This is worse with deep breathing. He had some SOB and chest tightness with it. He continues to have the chest pain currently if he takes a deep breath. Yesterday he also had some nausea and vomiting. He notes that the vomit was brownish. He only threw up once. He has no diarrhea. He has some abdominal discomfort which also occurs with eating. He came to the ER and had negative troponin x 2, EKG with RBBB, negatve lipase. He is to be kept overnight for chest pain workup. Hospital Course: 1. Erosive esophagitis?84-year-old male presented from home with a history of rheumatic fever and pulmonary fibrosis and essential tremor who who is having sharp pain in his midsternal and midepigastric region that was worse with deep breathing. He had a fairly broad workup due to the vague symptoms, he had negative troponins and his EKG was nonischemic with a right bundle branch block. No elevation in his lipase. He had an echocardiogram with an EF of 55% and severe aortic stenosis. He will need to follow-up with cardiology as an outpatient to evaluate for possible TAVR. He did have an EGD on 02/04/2025 that demonstrated grade D erosive esophagitis with bleeding as well as what was thought to be gastroparesis which was what kept him here through the weekend. He had a gastric emptying study today which was negative for any gastroparesis so I discussed with gastroenterology about discharge and they felt that would be okay with outpatient follow-up. Will continue with the PPI and have him follow-up with gastroenterology within a month. I do recommend he follow-up with his PCP in 3 to 5 days. He will need an outpatient referral for cardiology depending on the system he would like to use for TAVR. I discussed with him the plan for discharge today and he expressed understanding of the risks and benefits of going home and would like to go home today. Of note he did have an episode of A-fib that resolved on its own and given his esophagitis I am hesitant to start him on anticoagulation or aspirin, his left atrium is normal so I feel like his episode of A-fib was acutely disease related and not a fundamental aspect of his cardiac anatomy. Therefore I have elected to leave the question of anticoagulation up to outpatient cardiology evaluation. 2. Bilateral hydronephrosis and hydroureter with retention?started him on Flomax after he had a Cooper placed. He did have a voiding trial today initially he had a postvoid residual of 325 cc so we waited an hour and he had another spontaneous void with no residual. Will continue with Flomax on discharge and have him follow-up with his PCP. Physical Exam Narrative General: Alert, Oriented x3, Cooperative, No apparent distress HEENT: Atraumatic, PERRLA, EOMI, Normocephalic Oral: Moist Mucosa Neck: Supple, No JVD Lungs: Diminished, Normal air movement, No rhonchi, No wheeze, No rales Cardiovascular: Regular rate, Regular Rhythm, Normal S1, Normal S2, No murmurs Abdomen: Soft, Non Tender, Non-Distended, No Hepato-splenomegaly Extremities: No edema, Capillary Refill Less than 3 Seconds Skin: No rashes, No breakdown Musculoskeletal: No Tenderness to Palpation of Joints or Extremities Neurological: No focal neurological deficits, Motor Exam 5/5 strength throughout, Sensory exam intact to light touch and pain Psych/Mental Status: Normal Affect, Appropriate Weight / BMI Weight Weight: 156 lb 4.924 oz Body Mass Index (BMI) 21.2 ABG / Lab / Microbiology Data 02/06/25 05:10 02/06/25 05:10 Radiography Diagnostic Testing: Radiology Impression Gastric Emptying Nuclear Medicine 02/07/25 07:12 IMPRESSION: Normal gastric emptying examination. Reading Location: [place] [address] D/C Instructions Discharge Diet: No restrictions Call your doctor if you observe: Fever of 101 or Higher, Shortness of breath, Dizziness, Fainting spells, Swelling in the ankles, Chest pain and Increased palpitations (irregular heartbeat) DC O2, CPAP, BIPAP Needs Home O2 Discharge instructions: No Meaningful Use Info Meaningful Use Meaningful Use Diagnoses (Choose all that apply): None applicable Ischemic Stroke Statin Dosing Therapy Reference: STATIN DOSE THERAPY REFERENCE: * Patients > 75 years receive moderate or high dose statin therapy. * Patients 75 years or YOUNGER should receive HIGH intensity statin dose unless contraindicated. You will be required to document reason for non-treatment if statin daily dose does not meet guidelines. HIGH DOSE STATIN THERAPY DAILY Atorvastatin > than or = to 40 mg Rosuvastatin > than or = to 20 mg Amlodipine + Atorvastatin > than or = to 2.5/40 mg Ezetimibe + Simvastatin 10/80 mg Simvastatin 80mg Discharge Plan Admission Admit Date/Time: 02/03/25 20:58 Attending Provider: Josh Elam Primary Care Provider: Laurent York Chi Consulting Providers: Luis Unger Discharge Orders/Prescriptions Prescriptions: New tamsulosin 0.4 mg Capsule 0.4 mg PO DAILY@1730 30 Days Qty: 30 0RF pantoprazole [Protonix] 40 mg tablet,delayed release (DR/EC) 40 mg PO DAILY Qty: 30 0RF No Action meclizine 25 mg tablet 25 mg PO DAILY PRN PRN (Reason: vertigo) propranolol 10 MG tablet 10 mg PO BID Qty: 60 6RF Patient Comments: heart/TREMORS Referrals / Follow Up: Christ Longoria DO [Med Staff - Active Staff] - Within 1 Month Laurent York Chi, MD [Primary Care Provider] - Within 1 Week Disposition Disposition (needs filled in before D/C Order can be placed): Home, Self Care Charges/Coding Visit Charges Inpatient E&M: 36757 Disch Hosp >30min
== END 2025-02-07 17:36 | disposition home or self-care (01) | DRG 381 ==
LOC: ED 19:11 → MS2 20:35 → PCU 02-05 12:25
PROVIDERS: Internal Medicine Gastroenterology; Physician Assistant; Emergency Provider Emergency Medicine; PCP Family Medicine Geriatric Medicine; Visit Provider Family Medicine
PROC: 0DJ08ZZ Inspection of Upper Intestinal Tract, Via Natural or Artificial Opening Endoscopic (ICD-10-PCS; CPT 43235; principal; 2025-02-04 16:40)
DX: K22.11 Ulcer of esophagus with bleeding (principal); I45.2 Bifascicular block; N13.30 Unspecified hydronephrosis; N13.4 Hydroureter; G25.0 Essential tremor; J84.10 Pulmonary fibrosis, unspecified; I10 Essential (primary) hypertension; I35.0 Nonrheumatic aortic (valve) stenosis; I48.91 Unspecified atrial fibrillation; J44.9 Chronic obstructive pulmonary disease, unspecified; K21.9 Gastro-esophageal reflux disease without esophagitis; K44.9 Diaphragmatic hernia without obstruction or gangrene; R07.89 Other chest pain; Z79.899 Other long term (current) drug therapy; Z87.891 Personal history of nicotine dependence
CPT/HCPCS: 36415; 71045; 74177; 78264; 78452; 80048; 80053; 80061; 83690; 84443; 84484; 85025; 93005; 93017; 93306; 99285; A9500; A9541; Q9967; A4216; J2405; J2785

== ENCOUNTER 2025-06-29 08:27 | Emergency (ER) | payer MEDICARE, SELFPAY ==
[2025-06-29 08:28] VITALS: BP 96/63; PULSE 94; RESP 18; TEMP 37; O2SAT 96
--- NOTE | 2025-06-29 08:45 | CT_ITS ---
PROCEDURE: ABDOMEN/PELVIS W IV CONT ONLY 06/29/2025 REASON FOR EXAM: HEMATURIA TECHNIQUE: Procedure Code: [id number] Modality: CT Procedure: ABDOMEN/PELVIS W IV CONT ONLY Coronal and Sagittal reconstruction series were provided. CONTRAST: Isovue 370 VOLUME: 100 mL One or more dose reduction techniques were used (e.g., Automated exposure control, adjustment of the mA and/or kV according to patient size, use of iterative reconstruction technique. RADIATION DOSE SUMMARY: CTDlvol: 30.96 mGy DLP: 627.48 mGycm COMPARISON: None FINDINGS: Lung bases: Diffuse interstitial lung disease with peripheral honeycombing and fibrotic scarring throughout both lower lung alba. Large retrocardiac hiatal hernia containing majority of the stomach. Liver: Normal size. No mass. Gallbladder: Unremarkable Spleen: Normal size. Pancreas: Normal size without evidence of mass surrounding inflammation or ductal dilation. Adrenals: Unremarkable Kidneys: No obstructive uropathy or suspicious solid renal lesion Bladder: Markedly abnormal bladder. The bladder wall is diffusely thickened and there is extensive air within the bladder, etiology is uncertain. Findings suggest emphysematous cystitis but the air could also be due to a fistulous connection with the bowel loop or recent catheterization No pelvic mass or adenopathy Bowel: No CTA evidence of obstruction or acute inflammation, retained stool noted throughout the colon with scattered diverticula but no CT evidence of acute diverticulitis Appendix: Not visualized Lymph nodes: No suspicious mesenteric or retroperitoneal adenopathy Vasculature: Peripheral calcifications in the ectatic abdominal aorta without aneurysm or dissection Peritoneum / Retroperitoneum: No free fluid or air Bones: Degenerative bony changes without fracture, scoliosis noted in the lumbar spine CT/Abdomen/Pelvis W IV Cont ONLY IMPRESSION: Extensive interstitial lung disease with fibrotic scarring and honeycombing in the periphery of both lower lung alba. Large retrocardiac hiatal hernia containing majority of the stomach No suspicious solid organ abnormality No free intraperitoneal fluid, air, or suspicious adenopathy Retained stool with scattered diverticulosis, no CT evidence of acute diverticu litis Degenerative bony changes Reading Location: [address]
--- NOTE | 2025-06-29 08:53 | EX.ED.DYSGE1 ---
HPI History of Present Illness Chief Complaint: Complaint Narrative Narrative: Chief complaint and HPI: 85-year-old male with past medical history of HTN, prostate resection, interstitial pulmonary process presents for evaluation of hematuria. Patient states he was catheterized advised in January during a hospitalized admission and since then has been having some vague discomfort in his penis. States 2 days ago he began having hematuria. He denies any fever, chills, shortness of breath, chest pain, abdominal pain, nausea, vomiting, testicular pain. Has been taking his tamsulosin. Review of systems: See HPI Medications: As listed on the chart Allergies: As listed on the chart PFSH: Per chart Vital signs: As listed on the chart. Reviewed. Physical exam: Gen: A&O x3, NAD Head: Normocephalic, atraumatic Eyes: No sclera icterus, conjunctiva clear ENT: Moist mucous membranes CV: RRR, no murmurs Resp: Lungs CTA BL, no w/r/c GI: Abd soft, non-distended, non-tender, no r/r/g : No CVA tenderness. Circumcised penis. No penile tenderness or discharge. No penile or testicular swelling. Normal lie and position of the testicles. No testicular tenderness or skin changes. No rashes. Right inguinal hernia. Musc: Full ROM, no deformity Skin: Warm, dry Neuro: Alert, oriented, grossly intact, sensation intact Psych: Cooperative, appropriate mood and affect [facility] Medical History Former smoker Interstitial pulmonary fibrosis Tremor Rheumatic fever Home Medications ?Medication ?Instructions ?Recorded ?Last Taken ?Type propranolol 10 mg tablet 10 mg PO BID #60 TABLETS 02/07/15 06/01/15 07:00 Rx meclizine 25 mg tablet 25 mg PO DAILY PRN PRN vertigo 07/28/24 Unknown History pantoprazole 40 mg tablet,delayed 40 mg PO DAILY #30 tabs 02/07/25 Unknown Rx release (Protonix) tamsulosin 0.4 mg capsule 0.4 mg PO DAILY@1730 30 days #30 02/07/25 Unknown Rx caps Allergy/AdvReac Type Severity Reaction Status Date / Time No Known Allergies Allergy Verified 06/29/25 08:28 Family History Son Cancer CVA (cerebral vascular accident) Father Heart disease Surgical History History of tonsillectomy Social History Smoking Status: Former smoker how long ago did patient quit smokin years ago EXAM Physical Exam Const Vital Signs: 06/29/25 08:28 Temperature 98.6 F Temperature Source Oral Pulse Rate 94 Respiratory Rate 18 Blood Pressure 96/63 Blood Pressure Mean 74 Pulse Ox 96 Oxygen Delivery Method Room Air MDM MDM MDM Narrative Medical decision making narrative: 85-year-old male with past medical history of HTN, prostate resection, interstitial pulmonary process presents for evaluation of hematuria. Patient states he was catheterized advised in January during a hospitalized admission and since then has been having some vague discomfort in his penis. States 2 days ago he began having hematuria. 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 Napier in 2014. Differential diagnosis includes but is not limited to prostatic stricture, prostate enlargement, prostate cancer, urolithiasis, electrolyte abnormality, ROBERT. NS bolus ordered. Laboratory workup ordered including CT abdomen pelvis. Bladder scan 3 ml which patient is not retaining. CBC without leukocytosis. Patient has baseline anemia and thrombocytopenia. BMP without electrolyte abnormality or ROBERT. UA positive for blood and UTI. Urine culture sent. CT abdomen pelvis shows known interstitial lung disease. Large retrocardiac hiatal hernia. Retained stool with scattered diverticulosis. Patient's symptoms are likely secondary to UTI. On chart review, patient's previous urine cultures have grown out multiple bacteria all sensitive to Levaquin. Will place him on Levaquin, first dose given here. Patient is not retaining and therefore does not require Cooper catheter. I did speak with him about placing one prophylactically to help with irrigation and voiding. Patient declined. I do think this is appropriate. Patient was educated that if he begins developing urinary retention or inability to urinate he needs or he present back to the emergency department. He confirmed understanding. Patient stable to discharge home. Follow-up with primary care physician and urology. Return precautions explained. Impression: 1. UTI 2. Hematuria Lab Data Labs: Laboratory Results - last 24 hr 06/29/25 06/29/25 09:04 09:09 WBC 5.5 RBC 3.22 L Hgb 10.2 L Hct 32.6 L MCV 101.2 H MCH 31.7 MCHC 31.3 L RDW Std Deviation 50.0 H RDW Coeff of Roe 13.3 Plt Count 144 L MPV 9.3 Immature Gran % (Auto) 0.400 Neut % (Auto) 63.5 Lymph % (Auto) 21.7 [place] % (Auto) 10.3 H Eos % (Auto) 3.7 Baso % (Auto) 0.4 Absolute Neuts (auto) 3.5 Absolute Lymphs (auto) 1.18 Nucleated RBC % 0 Sodium 138 Potassium 4.0 Chloride 103 Carbon Dioxide 22.6 Anion Gap 12 BUN 29 H Creatinine 0.96 Estim Creat Clear Calc 57.42 Est GFR (MDRD) Non-Af 77 BUN/Creatinine Ratio 30.6 H Glucose 103 H Calcium 9.1 Urine Color Taisha Urine Clarity Turbid Urine pH 5.0 Ur Specific [place] 1.020 Urine Protein 500 H Urine Glucose (UA) Normal Urine Ketones Negative Urine Occult Blood 250 H Urine Nitrite Negative Urine Bilirubin Negative Urine Urobilinogen Normal Ur Leukocyte Esterase 100 H Urine RBC 25-50 SEEN Urine WBC 5-10 SEEN Ur Squamous Epith Cells 0-5 SEEN Urine Bacteria 2+ Urine Mucus 0 SEEN Radiography Diagnostic Testing: Clinical Impression(s) from Imaging Studies Abdomen/Pelvis CT 06/29/25 08:45 IMPRESSION: Extensive interstitial lung disease with fibrotic scarring and honeycombing in the periphery of both lower lung alba. Large retrocardiac hiatal hernia containing majority of the stomach No suspicious solid organ abnormality No free intraperitoneal fluid, air, or suspicious adenopathy Retained stool with scattered diverticulosis, no CT evidence of acute diverticulitis Degenerative bony changes Reading Location: [address] Discharge Plan Triage Chief Complaint: Complaint ED Provider: Ricardo Nichols Dx/Rx/DC Orders Prescriptions: No Action meclizine 25 mg tablet 25 mg PO DAILY PRN PRN (Reason: vertigo) propranolol 10 MG tablet 10 mg PO BID Qty: 60 6RF Patient Comments: heart/TREMORS tamsulosin 0.4 mg Capsule 0.4 mg PO DAILY@1730 30 Days Qty: 30 0RF pantoprazole [Protonix] 40 mg tablet,delayed release (DR/EC) 40 mg PO DAILY Qty: 30 0RF Primary Care Provider: Laurent York Chi Referrals: Laurent York Chi, MD [Primary Care Provider, Geriatrics] Print Language: Vietnamese
[2025-06-29 09:04] VITALS: BMI 21.9
[2025-06-29] MEDS: 0.9% Normal Saline (1000mL) 1,000 ML 999 ML IV (09:08)
[2025-06-29 09:20] LABS: Mucous, Urine 0 SEEN /hpf (<or=2+)
[2025-06-29 09:22] LABS: Hematocrit 32.6 % (40-54); Hemoglobin 10.2 g/dL (13.0-16.5); Immature Granulocytes Count 0.020 X10^3/uL (0.0-0.0); Mean Corp Hgb Conc 31.3 g/dL (32-36); Mean Corpuscular Volume 101.2 fL (80-94); Mean Platelet Vol. 9.3 fl (6.2-12.0); NRBC Flagged by Analyzer 0 % (0-5); Platelet Count 144 K/mm3 (150-450); RBC Distribution Width CV 13.3 % (11.6-14.6); RBC Distribution Width SD 50.0 fl (35.1-43.9); Red Blood Count 3.22 M/mm3 (4.6-6.2); White Blood Count 5.5 K/mm3 (4.4-11.0)
[2025-06-29 09:28] LABS: Color, Urine Amber (Yellow); Glucose, Dipstick Normal (Normal); Ketone-Dipstick Negative (Negative); Leukocyte Esterase-Dipstick 100 /ul (Negative); Nitrite-Dipstick Negative (Negative); Occult Blood-Urine 250 /ul (Negative); Protein-Dipstick 500 mg/dl (Negative); Specific Gravity, Urine 1.020 (1.002-1.030); Urine Bilirubin Dipstick Negative (Negative)
[2025-06-29 09:37] LABS: Red Blood Cells-Urine 25-50 SEEN /hpf (0-5); Squamous Epithelial Cells - UA 0-5 SEEN /hpf (0-5)
[2025-06-29 09:42] LABS: Anion Gap 12 (5-15); BUN 29 mg/dL (4-19); BUN/Creat Ratio 30.6 RATIO (10-20); Calcium,Total 9.1 mg/dL (7.6-11.0); Carbon Dioxide 22.6 mmol/L (21.0-32.0); Chloride 103 mmol/L (98-108); Estimated Creatinine Clearance 57.42 ml/min (50-250); Glucose 103 mg/dL (70-99); Potassium 4.0 mmol/L (3.3-5.1)
[2025-06-29 10:21] VITALS: BP 119/84; PULSE 84; RESP 16; TEMP 37; O2SAT 97
== END 2025-06-29 10:32 | disposition home or self-care (01) ==
PROVIDERS: Emergency Provider Surgery; PCP Family Medicine Geriatric Medicine; Visit Provider Surgery
DX: N39.0 Urinary tract infection, site not specified (principal); J84.10 Pulmonary fibrosis, unspecified; R31.9 Hematuria, unspecified; I10 Essential (primary) hypertension; D64.9 Anemia, unspecified; D69.6 Thrombocytopenia, unspecified; K44.9 Diaphragmatic hernia without obstruction or gangrene; K57.30 Diverticulosis of large intestine without perforation or abscess without bleeding; Z79.899 Other long term (current) drug therapy; Z87.891 Personal history of nicotine dependence
CPT/HCPCS: 74177; 80048; 81001; 85025; 87077; 87086; 87088; 87186; 96360; 99283; Q9967; A4216

== ENCOUNTER → 2025-07-20 | Outpatient (CLI) | payer MEDICARE, SELFPAY ==
[2025-07-20 13:27] LABS: Hematocrit 36.0 % (40-54); Hemoglobin 11.5 g/dL (13.0-16.5); Immature Granulocytes Count 0.030 X10^3/uL (0.0-0.0); Mean Corp Hgb Conc 31.9 g/dL (32-36); Mean Corpuscular Volume 100.0 fL (80-94); Mean Platelet Vol. 8.5 fl (6.2-12.0); NRBC Flagged by Analyzer 0 % (0-5); Platelet Count 221 K/mm3 (150-450); RBC Distribution Width CV 13.2 % (11.6-14.6); RBC Distribution Width SD 48.7 fl (35.1-43.9); Red Blood Count 3.60 M/mm3 (4.6-6.2); White Blood Count 5.7 K/mm3 (4.4-11.0)
[2025-07-20 14:06] LABS: AST(SGOT) 17 U/L (<=37); Alanine Aminotransfer ALT/SGPT 7 U/L (<=46); Albumin, Serum 3.8 g/dL (3.4-4.8); Alkaline Phosphatase 91 U/L (40-129); Anion Gap 11 (5-15); BUN 19 mg/dL (4-19); BUN/Creat Ratio 17.1 RATIO (10-20); Calcium,Total 9.2 mg/dL (7.6-11.0); Carbon Dioxide 24.8 mmol/L (21.0-32.0); Chloride 102 mmol/L (98-108); Cholesterol 116 mg/dL (<=200); Globulin 3.8 g/dL (2.2-4.2); Glucose 134 mg/dL (70-99); Low Density Lipoprotein Calc. 66 mg/dL; Potassium 4.6 mmol/L (3.3-5.1); Triglycerides 90 mg/dL; Very Low Density Lipoprotein 18 mg/dL (5-40); Vitamin D,25 Hydroxy 19.7 ng/mL (30-100); cholesterol:hdl ratio screen 3.55
[2025-07-20 21:14] LABS: Xtra Tube Kwok EXTRA TUBE
== END | disposition home or self-care (01) ==
LOC: LAB.FUTURE 13:14 → POLAB3 13:14
PROVIDERS: PCP Family Medicine Geriatric Medicine; Visit Provider Family Medicine Geriatric Medicine
DX: E78.5 Hyperlipidemia, unspecified (principal); E11.65 Type 2 diabetes mellitus with hyperglycemia; E55.9 Vitamin D deficiency, unspecified; I10 Essential (primary) hypertension
CPT/HCPCS: 36415; 80053; 80061; 82306; 83036; 84443; 85025

== ENCOUNTER 2025-08-09 12:15 | Emergency (ER) | payer MEDICARE, SELFPAY ==
[2025-08-09 12:16] VITALS: BP 144/93; PULSE 81; RESP 18; TEMP 35.8; O2SAT 98; BMI 21.7
--- NOTE | 2025-08-09 12:54 | CT_ITS ---
PROCEDURE: SPINE LUMBAR WITHOUT CONTRAST 08/09/2025 REASON FOR EXAM: LUMBAR PAIN AND WEIGHT LOSS TECHNIQUE: Procedure Code: CTSPL Modality: CT Procedure: SPINE LUMBAR WITHOUT CONTRAST Coronal and Sagittal reconstruction series were provided. One or more dose reduction techniques were used (e.g., Automated exposure control, adjustment of the mA and/or kV according to patient size, use of iterative reconstruction technique COMPARISON: June 29, 2025 RADIATION DOSE SUMMARY: DLP: 616 mGycm FINDINGS: There is a 25% anterior compression deformity at T11, unchanged. There is levoscoliosis of the lower lumbar region. There is degenerative disc disease which is most severe from L4-S1 with a component of vacuum disc phenomena. No acute fracture is identified. There is no significant spondylolisthesis. There is foraminal narrowing secondary to bony hypertrophy from L2-S1. There is no critical central canal stenosis identified. Abdominal aorta is dilated to at least 3.3 [address] in AP diameter. CT/Spine Lumbar without Contrast IMPRESSION: There is a 25% anterior compression deformity at T11, unchanged. There is levoscoliosis of the lower lumbar region. There is degenerative disc disease which is most severe from L4-S1 with a compo nent of vacuum disc phenomena. Abdominal aorta is dilated to at least 3.3 cm in AP diameter. Reading Location: [facility]
--- NOTE | 2025-08-09 13:20 | RAD_ITS ---
PROCEDURE: PELVIS 1 OR 2 VIEWS 08/09/2025 REASON FOR EXAM: PAIN TECHNIQUE: Procedure Code: RADPEL Modality: DX Procedure: PELVIS 1 OR 2 VIEWS FINDINGS: No evidence of acute fracture or dislocation. [id number] degenerative changes of the bilateral hips. Degenerative changes of the partially visualized spine. RAD/Pelvis 1 or 2 Views IMPRESSION: No acute osseous abnormalities. Osteoarthrosis. Reading Location: [facility]
--- NOTE | 2025-08-09 13:21 | ED.VIS.BACK ---
HPI History of Present Illness Chief Complaint: Back Informant: patient Narrative Narrative: 85-year-old male presenting to the emergency room with low back pain with radiation into his right leg. He states he started noticing this on Friday. Feels pain in the low back that radiates in towards the buttock and then down the thigh posteriorly into the knee. He denies any leg or foot symptoms. He denies any foot drop or weakness. He is able to fully flex at the knee. No bowel or bladder dysfunction. He denies any trauma. He states he does not take any blood thinners. Cannot recall any heavy lifting or injury that would have happened they bring this on. States that about a year ago he noticed that he lost height as well as a substantial amount of weight which he talk to his doctor about. He states that he feels that his hips are at a different height than each other. [facility] Medical History Hemoptysis Hyperlipidemia Bilateral hydronephrosis Atrial fibrillation Aortic stenosis BPH (benign prostatic hyperplasia) GERD (gastroesophageal reflux disease) Interstitial pulmonary fibrosis Tremor Rheumatic fever Home Medications ?Medication ?Instructions ?Recorded ?Last Taken ?Type propranolol 10 mg tablet 10 mg PO BID #60 TABLETS 02/07/15 08/09/25 Rx meclizine 25 mg tablet 25 mg PO DAILY PRN vertigo 07/28/24 08/09/25 History pantoprazole 40 mg tablet,delayed 40 mg PO DAILY gerd #30 tabs 02/07/25 08/09/25 Rx release (Protonix) tamsulosin 0.4 mg capsule 0.4 mg PO DAILY@1730 prostate 30 02/07/25 08/08/25 Rx days #30 caps triamcinolone acetonide 0.1 % 1 applic topical TID 08/08/25 08/09/25 History topical cream oxycodone-acetaminophen 5 mg-325 1 tab PO Q6H PRN PRN Pain 3 days 08/09/25 Unknown Rx mg tablet #12 TABLETS prednisone 20 mg tablet 60 mg (3 x 20 mg) PO DAILY #15 08/09/25 Unknown Rx TABLETS Allergy/AdvReac Type Severity Reaction Status Date / Time No Known Allergies Allergy Verified 08/09/25 12:16 Family History Son Cancer CVA (cerebral vascular accident) Father Heart disease Mother CVA (cerebral vascular accident) Surgical History History of tonsillectomy Social History Smoking Status: Former smoker how long ago did patient quit smokin years ago ROS ROS ED Constitutional Constitutional ED: Denies chills or weight loss Eyes Eyes: Denies change in vision or diplopia ENT ENT ED: Denies ear pain, rhinorrhea or sore throat Cardiovascular Cardiovascular: Denies chest pain, orthopnea, palpitations or racing heartbeat Respiratory/Chest Respiratory/Chest: Denies cough, dyspnea or orthopnea Gastrointestinal Gastrointestinal: Denies abdominal pain, diarrhea, nausea or vomiting Genitourinary Genitourinary ED: Denies dysuria, hematuria or urinary frequency Musculoskeletal Musculoskeletal: Reports back pain and other Details: Right thigh pain ; Denies arthralgias or myalgias Integumentary Denies abscess or rash Neurologic Neurologic: Denies headache(s) or weakness Psychiatric Psychiatric: Denies anxiety, depression, suicidal ideation or suicidal thoughts Endocrine Endocrinology: Denies polydipsia, polyphagia or polyuria Allergic/Immunologic Allergic/Immunologic ED: Denies mouth swelling, tongue swelling or urticaria EXAM Physical Exam Const Vital Signs: 08/09/25 12:16 08/09/25 14:26 08/09/25 14:33 Temperature 96.5 F L 97.9 F 97.9 F Temperature Source Temporal Pulse Rate 81 72 72 Respiratory Rate 18 16 16 Blood Pressure 144/93 H 138/68 H 138/68 H Blood Pressure Mean 110 91 91 Pulse Ox 98 97 97 Oxygen Delivery Method Room Air Positive well nourished and well developed General Appearance ED: well developed HEENT Reports normocephalic, head/scalp atraumatic and moist mucous membranes Eyes PERRL and EOMs intact bilaterally Neck no lymphadenopathy, supple and no JVD Resp normal respiratory effort and clear to auscultation bilaterally Cardio regular rate, regular rhythm and no murmurs GI normal to inspection, nondistended, normoactive bowel sounds and non-tender Palpation: soft Back/Spine no CVA tenderness and normal ROM Back/Spine Narrative: Patient appears neurologically intact. He has some tenderness to palpation over the right lumbar paraspinal musculature and into the right buttock. I do not appreciate any rash. His iliac crest appear to be equal bilaterally. He does have a scoliotic like curvature to the spinous processes. The right leg demonstrates normal sensation. Skin color appears normal. Excellent capillary refill. There is no swelling. He is able to fully flex at the hip on his own against gravity. He is able to fully extend at the knee joint and flex again. Extremity normal to inspection General Extremety ED: Negative for edema General Extremity: Negative for edema Neuro oriented x3 and CN's II-XII intact bilaterally Sensorium / Orientation: alert Motor Exam: strength 5/5 throughout Deep Tendon Reflexes: Rt Patellar (L4): 2+, Lt Patellar (L4): 2+, Rt Ankle (S1): 2+ and Lt Ankle (S1): 2+ Deep Tendon Reflexes Back: Rt Patellar (L4): 2+, Lt Patellar (L4): 2+, Rt Ankle (S1): 2+ and Lt Ankle (S1): 2+ Psych mental status grossly normal Mood & Affect: Negative for depressed or tearful Skin no rashes or lesions noted and no wounds MDM MDM MDM Narrative Medical decision making narrative: Differential diagnosis includes but not limited to lumbar radiculopathy sciatica degenerative disc disease cauda equina syndrome shingles fracture CT lumbar spine was obtained which shows degenerative disc disease at L4-S1. There is also a age-indeterminate T11 compression fracture. My depend interpretation of plain film of the pelvis is no acute fracture. Clinically patient has pain rating from the low back down to the knee. He does not have any signs of cauda equina at this time. He has no neurologic deficits. I will write for pain medication as well as a trial of prednisone. He was advised to follow-up with primary care in the next week to see how he is feeling. If no improvement or worsening he may need to see pain management or going for MRI of the spine. Patient understands this plan History & Record Review Discussion w/independent historian: Patient Radiography Diagnostic Testing: Clinical Impression(s) from Imaging Studies Lumbar Spine CT 08/09/25 12:54 IMPRESSION: There is a 25% anterior compression deformity at T11, unchanged. There is levoscoliosis of the lower lumbar region. There is degenerative disc disease which is most severe from L4-S1 with a component of vacuum disc phenomena. Abdominal aorta is dilated to at least 3.3 cm in AP diameter. Reading Location: [facility] Pelvis X-Ray 08/09/25 13:20 IMPRESSION: No acute osseous abnormalities. Osteoarthrosis. Reading Location: [facility] Discharge Plan Triage Chief Complaint: Back ED Provider: Michael Black Dx/Rx/DC Orders Clinical Impression: DDD (degenerative disc disease), lumbar, Acute lumbar radiculopathy Instructions: ED Degenerative Disk Disease, ED Herniated Intervertebral Disk Prescriptions: New oxycodone-acetaminophen 5-325 mg tablet 1 tab PO Q6H PRN PRN (Reason: Pain) 3 Days Qty: 12 0RF prednisone 20 mg tablet 60 mg PO DAILY Qty: 15 0RF No Action meclizine 25 mg tablet 25 mg PO DAILY PRN (Reason: vertigo) triamcinolone acetonide 0.1 % cream 1 applic topical TID propranolol 10 MG tablet 10 mg PO BID Qty: 60 6RF Patient Comments: heart/TREMORS tamsulosin 0.4 mg Capsule 0.4 mg PO DAILY@1730 30 Days Qty: 30 0RF pantoprazole [Protonix] 40 mg tablet,delayed release (DR/EC) 40 mg PO DAILY Qty: 30 0RF Primary Care Provider: Laurent York Chi Referrals: Laurent York Chi, MD [Primary Care Provider, Geriatrics] - 1 Week Print Language: Chinese Disposition Disposition: Home, Self Care Discharge Date/Time: 08/09/25 14:34
[2025-08-09 14:26] VITALS: BP 138/68; PULSE 72; RESP 16; TEMP 36.6; O2SAT 97
[2025-08-09 14:33] VITALS: BP 138/68; PULSE 72; RESP 16; TEMP 36.6; O2SAT 97
== END 2025-08-09 14:34 | disposition home or self-care (01) ==
PROVIDERS: Emergency Provider Emergency Medicine; PCP Family Medicine Geriatric Medicine; Visit Provider Emergency Medicine
DX: M51.16 Intervertebral disc disorders with radiculopathy, lumbar region (principal); Z87.891 Personal history of nicotine dependence; E78.5 Hyperlipidemia, unspecified; K21.9 Gastro-esophageal reflux disease without esophagitis; Z79.899 Other long term (current) drug therapy
CPT/HCPCS: 72131; 72170; 99282